=== PATIENT | female | born 1980 | race Caucasian/White ===

== ENCOUNTER 2017-07-31 16:23 | Emergency (ER) | payer OTHER, SELFPAY ==
[2017-07-31 16:25] VITALS: BP 178/108; PULSE 127; PULSE 131; RESP 17; RESP 18; TEMP 37.4; O2SAT 98; BMI 43.2
--- NOTE | 2017-07-31 17:00 | ED.VISSUMM ---
- ER Visit Summary Date of Service: 07/31/17 Chief Complaint: [] URI symptoms History of Present Illness: The patient is a 37 F [] complaining of cough, sore throat, body aches starting earlier today. Patient reports she gave a speech outside in the cold on a day when the ambient temperature was around 35?. She also reports her significant other recently had a URI with similar presentation 2-3 days ago. Denies chest pain, shortness of breath. Denies abdominal pain. Physical Examination: [] Temperature 99.3, heart rate 131, BP 178/108, respiratory rate 20, pulse ox 98% on room air. 37-year-old female no acute distress. HEENT reveals posterior oropharyngeal erythema without exudate. Cardiovascular exam was tachycardic, regular rhythm. Lungs clear to auscultation. Abdomen is soft and nontender. No lower extremity edema. Test Results: [] None. Emergency Department Course and Treatment: [] Patient had a viral presentation and I did not feel that laboratory or diagnostic imaging was warranted. Patient was given intravenous fluids for tachycardia, Phenergan and Toradol for symptom relief. She also received Decadron orally for her sore throat. On serial exam she had improvement of symptoms and was discharged to follow-up with her primary care physician. Provided with a prescription for Tessalon Perles prior to discharge. Treatment Plan: [] Follow-up with PCP. Disposition: [] Discharge, stable. Impression: [] URI Dehydration This note was generated with [employer] dictation software. It may contain incorrect words, spelling, and punctuation that were not noted in review of the chart prior to signing ED Disposition - Plan for ED Patient: Chief Complaint: Cold Sx Referrals: Milly Finn PA [Primary Care Provider] -
[2017-07-31] MEDS: 0.9% Normal Saline 1,000 ML 1000 ML IV (17:39)
[2017-07-31] MEDS: Ketorolac 15 MG/ML Vial IV (17:40)
[2017-07-31] MEDS: proMETHazine 25 MG/ML Syringe 6.25 MG IV (17:40)
--- NOTE | 2017-07-31 18:09 | ED.DEP ---
ED Disposition - Plan for ED Patient: Disposition: Home or Assisted Living Chief Complaint: Cold Sx Instructions: ED Upper Resp Infec No Abx Tx Prescriptions: Benzonatate [Tessalon Perle] 100 mg PO Q4H PRN PRN #20 cap PRN Reason: Cough Referrals: Milly Finn PA [Primary Care Provider] -
== END 2017-07-31 18:32 | disposition home or self-care (01) ==
PROVIDERS: Emergency Provider Emergency Medicine; Family Provider Physician Assistant; PCP Physician Assistant
DX: J06.9 Acute upper respiratory infection, unspecified (principal); E86.0 Dehydration; R00.0 Tachycardia, unspecified; E66.9 Obesity, unspecified; Z68.41 Body mass index [BMI] 40.0-44.9, adult; G43.909 Migraine, unspecified, not intractable, without status migrainosus
CPT/HCPCS: 96361; 96374; 96375; 99284; J7030; A4216

== ENCOUNTER 2017-08-03 00:49 | Emergency (ER) | payer OTHER, SELFPAY ==
[2017-08-03 00:50] VITALS: BP 178/125; PULSE 93; RESP 18; TEMP 36.8; O2SAT 97; BMI 43.4
--- NOTE | 2017-08-03 01:35 | ED.DCSUM_ITS ---
- ER Visit Summary Date of Service: 08/03/17 Chief Complaint: Cold symptoms History of Present Illness: The patient is a 37 F with cold symptoms for several days. Seen previously and diagnosed with viral bronchitis. Not improving with Tessalon. She is having face, teeth, sinus pressure. Very severe symptoms. Low-grade fever. Physical Examination: Blood pressure 178/125. Afebrile. Otherwise vitals normal. Nontoxic and in no acute distress. HEENT exam unremarkable. No lymphadenopathy. Neck unremarkable. Heart regular. Lungs clear. Skin appears normal. Test Results: None indicated Emergency Department Course and Treatment: Given the severity of her symptoms, we will treat. Prescription for Augmentin and Afrin for 5 days. At the time of this dictation, I will recheck her blood pressure. Patient will be advised to follow-up with her PCP for reevaluation and blood pressure checks. Treatment Plan: As above Disposition: Discharge Impression: 1. Acute sinusitis This note was generated with [employer] dictation software. It may contain incorrect words, spelling, and punctuation that were not noted in review of the chart prior to signing ED Disposition - Plan for ED Patient: Chief Complaint: Cold Sx Referrals: Milly Finn PA [Primary Care Provider] -
--- NOTE | 2017-08-03 01:35 | ED.DEP ---
ED Disposition - Plan for ED Patient: Chief Complaint: Cold Sx Instructions: ED Sinusitis Abx Tx Prescriptions: Amox/Clavulanate Tablet [Augmentin Tablet] 875 mg PO Q12H #20 tab Referrals: Milly Finn PA [Primary Care Provider] -
[2017-08-03] MEDS: Amox/Clavulanate 875 MG Tablet PO (01:40)
[2017-08-03] MEDS: Oxymetazoline 0.05% 1 SPRAY SPRAY.BTL 2 SPRAY NASAL (01:40)
[2017-08-03 01:41] VITALS: BP 151/90; PULSE 93; RESP 18; O2SAT 97
== END 2017-08-03 01:43 | disposition home or self-care (01) ==
PROVIDERS: Emergency Provider Emergency Medicine; Family Provider Physician Assistant; PCP Physician Assistant
DX: J01.90 Acute sinusitis, unspecified (principal); I10 Essential (primary) hypertension
CPT/HCPCS: 99283

== ENCOUNTER → 2017-09-24 15:35 | Outpatient (CLI) | payer OTHER, SELFPAY | PROVIDERS: Family Provider Physician Assistant; PCP Physician Assistant; Visit Provider Otolaryngology | DX: T78.40XA Allergy, unspecified, initial encounter (principal) | CPT/HCPCS: 36415; 86003 ==

== ENCOUNTER 2017-10-04 19:51 | Emergency (ER) | payer OTHER, SELFPAY ==
[2017-10-04 19:51] VITALS: BP 165/107; PULSE 98; RESP 18; TEMP 36.7; O2SAT 98; BMI 43.9
--- NOTE | 2017-10-04 21:08 | ED.VISSUMM ---
- ER Visit Summary Date of Service: 10/04/17 Chief Complaint: Itching History of Present Illness: The patient is a 37 F presenting with itching all over. Patient states this started 3 weeks ago. She has tried Benadryl, Marilyn, cortisone cream, Zyrtec. She does not know what is causing her symptoms. She denies any new medications, foods, pets, detergents. She states she underwent allergy testing last week and is awaiting these results. Denies other complaints. Physical Examination: Vitals are stable. Patient is afebrile. Alert no acute distress. HEENT exam is unremarkable. Neck is supple. Lungs are clear and equal bilaterally. Heart is regular rate and rhythm. Abdomen is soft nontender nondistended. Extremities are unremarkable. Skin is warm and dry. Excoriated from scratching, mild maculopapular rash of trunk No focal neurologic deficit. Remainder of exam is unremarkable. Emergency Department Course and Treatment: LFTs are normal. Patient is given for prescription for prednisone. She is advised to follow-up with her PCP and her allergy testing. Advised return to ED for worsening complaints. Disposition: Discharge home Impression: Pruritus This note was generated with [employer] dictation software. It may contain incorrect words, spelling, and punctuation that were not noted in review of the chart prior to signing ED Disposition - Plan for ED Patient: Chief Complaint: Itching Instructions: ED Allergic Reaction General Other Prescriptions: Prednisone [Deltasone] 40 mg PO DAILY #10 tablet Referrals: Milly Finn PA [Primary Care Provider] -
[2017-10-04 21:55] LABS: AST(SGOT) 15 U/L (15-37); Alanine Aminotransfer ALT/SGPT 27 U/L (13-56); Albumin, Serum 3.5 g/dL (3.2-5.0); Alkaline Phosphatase 90 U/L (45-117); Globulin 3.8 g/dL (2.2-4.2); Protein, Total 7.3 g/dL (6.4-8.2)
--- NOTE | 2017-10-04 22:20 | ED.DEP ---
ED Disposition - Plan for ED Patient: Chief Complaint: Itching Instructions: ED Allergic Reaction General Other Prescriptions: Prednisone [Deltasone] 40 mg PO DAILY #10 tablet Referrals: Milly Finn PA [Primary Care Provider] -
[2017-10-04 22:35] VITALS: RESP 16
== END 2017-10-04 22:35 | disposition home or self-care (01) ==
LOC: ED 20:56
PROVIDERS: Emergency Provider Emergency Medicine; Family Provider Physician Assistant; PCP Physician Assistant
DX: L29.9 Pruritus, unspecified (principal)
CPT/HCPCS: 80076; 99282

== ENCOUNTER → 2017-10-24 16:17 | Outpatient (CLI) | payer OTHER, SELFPAY ==
[2017-10-29 03:07] LABS: Clam <0.10 kU/L (Class 0); Codfish <0.10 kU/L (Class 0); Corn <0.10 kU/L (Class 0); Egg, White <0.10 kU/L (Class 0); Milk (Cow) <0.10 kU/L (Class 0); Peanut <0.10 kU/L (Class 0); SCALLOP <0.10 kU/L (Class 0); Shrimp <0.10 kU/L (Class 0); Soybean <0.10 kU/L (Class 0); Walnut, (Food) <0.10 kU/L (Class 0); Wheat <0.10 kU/L (Class 0)
[2017-10-31 10:32] LABS: SESAME SEED <0.10 kU/L (Class 0)
== END ==
LOC: LAB.FUTURE 16:18
PROVIDERS: Family Provider Physician Assistant; PCP Physician Assistant; Visit Provider Otolaryngology
DX: T78.40XA Allergy, unspecified, initial encounter (principal)
CPT/HCPCS: 36415; 86003

== ENCOUNTER 2018-04-27 18:17 | Emergency (ER) | payer OTHER, SELFPAY ==
[2018-04-27 18:18] VITALS: BP 215/120; PULSE 85; RESP 16; TEMP 36.4; O2SAT 95; BMI 43.9
--- NOTE | 2018-04-27 18:44 | CT_ITS ---
STUDY: CT ABDOMEN AND PELVIS WITHOUT CONTRAST REASON FOR EXAM: Female, 37 years old. Right lower quadrant pain RADIATION DOSAGE (If Supplied By Facility): CTDIvol = ( 22.13 ) mGy, DLP = ( 1138.78 ) mGycm TECHNIQUE: Transaxial images were obtained from the dome of the diaphragm to the symphysis pubis without oral contrast, and without intravenous contrast. Sagittal and coronal images were reconstructed. Individualized dose optimization techniques were used for this CT. COMPARISON: 01/20/2017. FINDINGS: The visualized lung bases are unremarkable. The visualized portions of the heart are within normal limits. There is decreased attenuation of the liver consistent with steatosis. Normal gallbladder and extrahepatic biliary system. Normal spleen. Normal pancreas. Normal bilateral adrenal glands. Normal right kidney. Left kidney has a 3 mm nonobstructing stone in the lower pole. The kidneys are otherwise normal. Evaluation of the GI tract is limited by absence of oral contrast. Cannot exclude stomach wall thickening. No dilated loops of bowel or evidence for obstruction. Cannot exclude segmental thickening of the umana of the small or large bowel. Cannot exclude enteritis or colitis. Moderate diffuse fecal retention. Appendix within normal limits. Normal abdominal aorta. Normal inferior vena cava. Normal retroperitoneum. Normal urinary bladder. Normal visualized uterus. There is a small umbilical hernia containing fat. Normal osseous structures. CT/Abdomen/Pelvis without Cont IMPRESSION: There is no definite acute abnormality seen. Electronically Signed: Yuriy Rodriguez MD at 20:09 EST , Service support ,
[2018-04-27] MEDS: 0.9% Normal Saline 1,000 ML 150 ML IV (19:01)
[2018-04-27 19:05] LABS: Bacteria 0 SEEN /hpf (None Seen); Red Blood Cells-Urine 0 SEEN /hpf (0-5)
[2018-04-27 19:19] LABS: Absolute Lymphocyte Count 2.96 X10^3/ul (0.83-4.51); Absolute Neutrophil Count 6.1 X10^3/uL (2.0-7.7); Basophil# 0.02 X10^3/uL; Basophil% 0.2 % (0-1); Eosinophil# 0.12 X10^3/uL; Eosinophils% 1.2 % (0-5); Hematocrit 36.8 % (37-47); Hemoglobin 12.1 g/dl (12.0-15.0); Lymphocyte # 2.96 X10^3/ul (4.0); Lymphocyte % 30.5 % (19-41); Mean Corp Hgb Conc 32.9 g/gl (32-36); Mean Corpuscular Hgb 29.5 pg (27.0-32.0); Mean Corpuscular Volume 89.8 fL (81-99); Mean Platelet Vol. 9.3 fl (6.2-12.0); Monocyte# 0.49 X10^3/uL; Neutrophil % 62.9 % (47-70); Platelet Count 280 K/mm3 (150-450); RBC Distribution Width CV 13.1 % (11.6-14.6); RBC Distribution Width SD 42.4 fl (35.1-43.9); White Blood Count 9.7 K/mm3 (4.4-11.0)
[2018-04-27 19:23] LABS: Anion Gap 9 (5-15); BUN 17 mg/dL (7-18); BUN/Creat Ratio 23.6 RATIO (10-20); Calcium,Total 8.7 mg/dL (8.5-10.1); Chloride 107 mmol/L (98-107); Creatinine, Serum 0.72 mg/dL (0.55-1.02); EST Glomerular Filtration Rate 97 mL/min (>60); Est Glom Filt Rate - Afr Amer 117 mL/min (>60); Estimated Creatinine Clearance 96.26 ml/min; Glucose 91 mg/dL (74-106); POSITIVE COUNT NO; POSITIVE DIFFERENTIAL NO; POSITIVE MORPHOLOGY NO; Potassium 3.3 mmol/L (3.5-5.1); Sodium Level 143 mmol/L (136-145)
[2018-04-27 19:23] LABS: Color, Urine Yellow (Yellow); Glucose, Dipstick Normal (Normal); Ketone-Dipstick Negative (Negative); Leukocyte Esterase-Dipstick 100 /ul (Negative); Nitrite-Dipstick Negative (Negative); Occult Blood-Urine Negative /ul (Negative); Protein-Dipstick Negative (Negative); Urine Bilirubin Dipstick Negative (Negative); Urine Clarity Sl. Cloudy (Clear); Urine Urobilinogen Normal (Normal)
[2018-04-27 19:37] LABS: Mucous, Urine 1+ /hpf (<or=2+)
[2018-04-27 19:38] LABS: Squamous Epithelial Cells - UA 0-5 SEEN /hpf (5-10); White Blood Cells 5-10 SEEN /hpf (0-5)
[2018-04-27 19:47] LABS: Pregnancy, Serum, hCG Quali. NEGATIVE Negative (0-9 Nonpreg)
[2018-04-27 20:04] VITALS: BP 162/111; PULSE 88; RESP 16; O2SAT 98
--- NOTE | 2018-04-27 20:34 | ED.DCSUM_ITS ---
- ER Visit Summary Date of Service: 04/27/18 Chief Complaint: [Abdominal pain] History of Present Illness: The patient is a 37 F [presents the emergency department complaint of abdominal pain that started around 11:30 AM today. Patient describes it as right-sided and can woke her up from sleep. Patient st ates pain is been continuous and rates it a 7 out of 10 currently. Patient states her last menstrual period was 1 week ago. She denies any dysuria. Patient does complain of some pain with flatulence. Patient denies any fevers at home. She has not had pain like this before. Patient has had somewhat decreased appetite and want to eat too much today but she did eat a sandwich around 1 PM. Patient did have one episode of diarrhea today but denies any blood in her stool. Patient states that she has had her left fallopian tube removed and the right one has been clamped therefore she does not believe she is .] Physical Examination: [HEENT-PERRLA, EOMI. Cranial nerves II through XII grossly intact. TMs clear. Mucous membranes moist. No adenopathy. Cardiovascular-regular rate and rhythm without murmur or ectopy Lungs-clear to auscultation, chest wall stable without crepitus or subcu emphysema Abdomen-normoactive bowel sounds, soft. Patient has some mild tenderness to the right lower quadrant with some guarding. There is no rebound, rigidity, or peritoneal signs. Extremities-intact ?4, normal range of motion, normal pulses, atraumatic] Test Results: [CBC with differential obtained showed a normal white count of 9.7, hemoglobin 12, hematocrit 37, platelets 280. Chemistries unremarkable other than a slightly depressed potassium at 3.3. Urinalysis was obtained and showed 100 leukocyte esterase, 5-10 WBCs, 0 RBCs, 0 bacteria. HCG was negative. CT flank showed a normal appendix otherwise nothing acute.] Emergency Department Course and Treatment: [Patient refused any pain medication in the department. Patient was given 40 mEq potassium chloride p.o.] Treatment Plan: [She will be given a prescription for [place] for pain and advised to follow-up with primary care physician within next 3-5 days. Patient advised to return if worsening pain, fever, vomiting, or condition should worsen anyway.] Disposition: [Discharged home in stable condition] Impression: [Abdominal pain-etiology uncertain] This note was generated with Dragon dictation software. It may contain incorrect words, spelling, and punctuation that were not noted in review of the chart prior to signing ED Disposition - Plan for ED Patient: Chief Complaint: Abd Pain Referrals: Milly Finn PA [Primary Care Provider] -
--- NOTE | 2018-04-27 20:35 | ED.DEP ---
ED Disposition - Plan for ED Patient: Chief Complaint: Abd Pain Instructions: ED Abdominal Pain Unkn Cause Prescriptions: Hydrocodone Bitart/Apap 5-325 [[place] 5MG-325MG] 1 tab PO Q4H PRN PRN 2 Days #10 tab PRN Reason: Pain Ondansetron [Zofran Odt] 4 mg PO Q8H PRN PRN #10 tab PRN Reason: Nausea Referrals: Milly Finn PA [Primary Care Provider] - 3-5 Days
[2018-04-27 20:50] VITALS: BP 180/108; PULSE 83
[2018-04-27 21:03] VITALS: BP 164/91
== END 2018-04-27 21:04 | disposition home or self-care (01) ==
PROVIDERS: Emergency Provider Emergency Medicine; Family Provider Physician Assistant; PCP Physician Assistant
DX: R10.31 Right lower quadrant pain (principal)
CPT/HCPCS: 74176; 80048; 81001; 84703; 85025; 87086; 87088; 96360; 96361; 99284; J7030; A4216

== ENCOUNTER 2018-09-03 19:26 | Emergency (ER) | payer OTHER, SELFPAY ==
[2018-09-03 19:27] VITALS: BP 171/113; PULSE 87; RESP 16; TEMP 36.6; O2SAT 96; BMI 43.5
--- NOTE | 2018-09-03 19:41 | EKG12_ITS ---
Test Reason : COUGH Blood Pressure : / mmHG Vent. Rate : 086 BPM Atrial Rate : 086 BPM P-R Int : 150 ms QRS Dur : 096 ms QT Int : 370 ms P-R-T Axes : 063 014 033 degrees QTc Int : 442 ms Normal sinus rhythm Normal ECG Confirmed by FREDDY GÓMEZ, BECKY ([id number]), map editor GHISLAINE WYNNE ([id number]) on 09/06/2018 1:39:56 PM Referred By: ANISA Confirmed By:BECKY HAYES MD
[2018-09-03] MEDS: Albuterol 2.5 MG/3 ML VIAL.NEB. INHALATION (19:50)
[2018-09-03 19:55] VITALS: PULSE 85; RESP 18; O2SAT 98
[2018-09-03 19:58] LABS: Hematocrit 34.5 % (37-47); Hemoglobin 11.6 g/dl (12.0-15.0); Mean Corp Hgb Conc 33.6 g/gl (32-36); Mean Corpuscular Hgb 29.9 pg (27.0-32.0); Mean Corpuscular Volume 88.9 fL (81-99); Platelet Count 268 K/mm3 (150-450); RBC Distribution Width CV 13.3 % (11.6-14.6); Red Blood Count 3.88 M/mm3 (4.2-5.4); White Blood Count 9.2 K/mm3 (4.4-11.0)
[2018-09-03 19:59] LABS: Absolute Neutrophil Count 5.6 X10^3/uL (2.0-7.7); Basophil# 0.03 X10^3/uL; Basophil% 0.3 % (0-1); Eosinophil# 0.31 X10^3/uL; Eosinophils% 3.4 % (0-5); Lymphocyte % 29.3 % (19-41); Mean Platelet Vol. 8.9 fl (6.2-12.0); Monocyte% 6.5 % (0-10); Neutrophil # 5.55 X10^3/uL (2.7-7.7); Neutrophil % 60.3 % (47-70); POSITIVE COUNT NO; POSITIVE DIFFERENTIAL NO; POSITIVE MORPHOLOGY NO
--- NOTE | 2018-09-03 20:00 | RAD_ITS ---
STUDY: X-RAY CHEST REASON FOR EXAM: Female, 38 years old. Cold for 2 weeks TECHNIQUE: PA and lateral views of the chest. COMPARISON: None. FINDINGS: groundwater monitoring technician leads are present. The lungs are clear and expanded. There is no demonstrated pleural abnormality. Normal size heart. Normal mediastinum and garfield. Normal visualized pulmonary arteries. Normal visualized aortic arch and descending thoracic aorta. Normal visualized thoracic spine. Normal visualized ribs, clavicles, and shoulders. There is no demonstrated abnormality of the visualized soft tissue structures of the upper abdomen. RAD/Chest PA and Lateral IMPRESSION: Normal x-ray examination of the chest. Electronically Signed: Macho Pichardo MD at 20:17 EDT , Service support ,
[2018-09-03 20:16] LABS: Anion Gap 5 (5-15); BUN 17 mg/dL (7-18); BUN/Creat Ratio 19.8 RATIO (10-20); Calcium,Total 8.5 mg/dL (8.5-10.1); Chloride 109 mmol/L (98-107); Creatinine, Serum 0.86 mg/dL (0.55-1.02); EST Glomerular Filtration Rate 79 mL/min (>60); Est Glom Filt Rate - Afr Amer 95 mL/min (>60); Estimated Creatinine Clearance 79.81 ml/min; Glucose 111 mg/dL (74-106); Potassium 3.5 mmol/L (3.5-5.1); Sodium Level 142 mmol/L (136-145)
[2018-09-03 20:23] LABS: BNP,B-Type NATRIURETIC PEPTIDE 8.8 pg/mL (0-100)
[2018-09-03 20:24] LABS: D-Dimer Quantitative (DVT/PE) 0.47 FEU/ug/m (0.27-0.49)
--- NOTE | 2018-09-03 22:06 | DCINST.ED_ITS ---
ED Disposition - Plan for ED Patient: Instructions: ED Upper Resp Infec No Abx Tx Prescriptions: Benzonatate [Tessalon Perle] 200 mg PO TID PRN PRN #20 capsule PRN Reason: Cough Referrals: Milly Finn PA [Primary Care Provider] -
--- NOTE | 2018-09-03 22:08 | ED.VISSUMM ---
- ER Visit Summary Date of Service: 09/03/18 Chief Complaint: Cough History of Present Illness: The patient is a 38 F presenting with cough x2 weeks. Patient has had a productive cough. She complains of shortness of breath associated with this. She has shortness of breath when she starts to cough or lays flat. She states several days ago she experienced chest pain. She went several days without chest pain and then today had left-sided chest pain associated with the cough. She has tried Mucinex and Cepacol at home. She recently traveled to [facility] and [facility]. No other PE/DVT risk factors. Physical Examination: Vitals are stable. Patient is afebrile. Alert no acute distress. 96% on room air HEENT exam is unremarkable. Neck is supple. Lungs are clear and equal bilaterally. Heart is regular rate and rhythm. Abdomen is soft nontender nondistended. Extremities are unremarkable. Skin is warm and dry. No focal neurologic deficit. Remainder of exam is unremarkable. Emergency Department Course and Treatment: Chest x-ray shows no acute process. EKG is sinus rate 86 with no acute changes. CBC, chemistries unremarkable. Troponin is negative. BNP normal. D-dimer negative. Patient was given albuterol with some improvement. She is given albuterol MDI for home as well as Tessalon Perles. Delta troponin will be followed by nighttime physician. As long as delta troponin is negative she will be discharged to follow-up with her primary care physician and advised to return to the ED for worsening complaints. Disposition: Pending Impression: Bronchitis, atypical chest pain This note was generated with [employer] dictation software. It may contain incorrect words, spelling, and punctuation that were not noted in review of the chart prior to signing ED Disposition - Plan for ED Patient: Instructions: ED Upper Resp Infec No Abx Tx Prescriptions: Benzonatate [Tessalon Perle] 200 mg PO TID PRN PRN #20 capsule PRN Reason: Cough Referrals: Milly Finn PA [Primary Care Provider] -
--- NOTE | 2018-09-03 22:11 | ED.DCSUM_ITS ---
- ER Visit Summary Date of Service: 09/03/18 Chief Complaint: Cough History of Present Illness: The patient is a 38 F presenting with cough x2 weeks. Patient has had a productive cough. She complains of shortness of breath associated with this. She has shortness of breath when she starts to cough or lays flat. She states several days ago she experienced chest pain. She went several days without chest pain and then today had left-sided chest pain associated with the cough. She has tried Mucinex and Cepacol at home. She recently traveled to [place] and [facility]. No other PE/DVT risk factors. Physical Examination: Vitals are stable. Patient is afebrile. Alert no acute distress. 96% on room air HEENT exam is unremarkable. Neck is supple. Lungs are clear and equal bilaterally. Heart is regular rate and rhythm. Abdomen is soft nontender nondistended. Extremities are unremarkable. Skin is warm and dry. No focal neurologic deficit. Remainder of exam is unremarkable. Emergency Department Course and Treatment: Chest x-ray shows no acute process. EKG is sinus rate 86 with no acute changes. CBC, chemistries unremarkable. Troponin is negative. BNP normal. D-dimer negative. Patient was given albuterol with some improvement. She is given albuterol MDI for home as well as Tessalon Perles. Delta troponin will be followed by nighttime physician. As long as delta troponin is negative she will be discharged to follow-up with her primary care physician and advised to return to the ED for worsening complaints. Disposition: Pending Impression: Bronchitis, atypical chest pain This note was generated with [employer] dictation software. It may contain incorrect words, spelling, and punctuation that were not noted in review of the chart prior to signing ED Disposition - Plan for ED Patient: Instructions: ED Upper Resp Infec No Abx Tx Prescriptions: Benzonatate [Tessalon Perle] 200 mg PO TID PRN PRN #20 capsule PRN Reason: Cough Referrals: Milly Finn PA [Primary Care Provider] -
[2018-09-03 22:54] VITALS: PULSE 105; RESP 18
[2018-09-03 23:27] VITALS: PULSE 90; RESP 18; O2SAT 98
== END 2018-09-03 23:28 | disposition home or self-care (01) ==
PROVIDERS: Emergency Provider Emergency Medicine; Family Provider Physician Assistant; PCP Physician Assistant
DX: J40 Bronchitis, not specified as acute or chronic (principal); R07.89 Other chest pain
CPT/HCPCS: 71046; 80048; 83880; 84484; 85025; 85379; 93005; 94640; 99284; A4216

== ENCOUNTER 2018-12-06 17:35 | Emergency (ER) | payer OTHER, SELFPAY ==
[2018-12-06 17:37] VITALS: BP 197/112; PULSE 89; RESP 15; TEMP 36.2; O2SAT 100; BMI 43.4
--- NOTE | 2018-12-06 17:58 | CT_ITS ---
STUDY: CT ABDOMEN AND PELVIS WITH CONTRAST REASON FOR EXAM: Female, 38 years old. Right lower quadrant pain. RADIATION DOSAGE (If Supplied By Facility): CTDIvol = ( 15.37 ) mGy, DLP = ( 1281.61 ) mGycm TECHNIQUE: Transaxial images were obtained from the dome of the diaphragm to the symphysis pubis without oral contrast. 100ML IV/Oral Isovue 300 was administered. Sagittal and coronal images were reconstructed. Individualized dose optimization techniques were used for this CT. COMPARISON: CT of the abdomen and pelvis, April 27, 2018. FINDINGS: The visualized lung bases are unremarkable. The visualized portions of the heart are within normal limits. Stable hepatic steatosis. Normal gallbladder and extrahepatic biliary system. Normal spleen. Normal pancreas. Normal bilateral adrenal glands. Normal right kidney. Normal right ureter. There is a 2 mm nonobstructing calculus lower pole calyx of an otherwise normal left kidney. Normal left ureter. Normal visualized stomach. Normal small intestine. Normal colon. The appendix is visualized and appears normal. Normal abdominal aorta. Normal inferior vena cava. Normal retroperitoneum. Normal urinary bladder. Normal uterus and ovaries. There are 2 surgical clips near the left adnexa suggesting tubal ligation clips. No pelvic lymphadenopathy. No free air or free fluid is seen within the peritoneal cavity. Normal abdominal wall. Normal osseous structures. CT/Abdomen/Pelvis WITH Contrast IMPRESSION: 1. Normal appendix. 2. No evidence of acute intra-abdominal or pelvic abnormality. 3. Nonobstructing left renal calculus, unchanged from the previous exam. Electronically Signed: Christiano Ray DO at 20:01 EDT Tel [phone], Service support ,
--- NOTE | 2018-12-06 17:58 | US_ITS ---
STUDY: ULTRASOUND OF THE FEMALE PELVIS - COMPLETE REASON FOR EXAM: Female, 38 years old. Left lower quadrant pain and severe today. Irregular bleeding. History of ectopic . LMP: November 18, 2018. TECHNIQUE: Transvaginal TECHNICAL QUALITY: Adequate. COMPARISON: None. FINDINGS: The uterus is anteverted and is in a midline position. The uterus measures 8.0 x 5.5 x 3.9 cm cm. Normal uterine cervix. The endometrium measures 7 mm in thickness, and is hyperechoic. There is no demonstrated endometrial mass. There is a 0.9 x 1.0 x 0.6 cm hypoechoic fibroid in the myometrium of the posterior upper uterine body. I.U.D. - The patient does not have an I.U.D. The right ovary is visualized. The right ovary measures 2.4 x 2.1 x 1.4 cm. There are multiple follicles of the right ovary with a 1.5 x 1.5 x 1.2 cm dominant follicle. There is no visualized right adnexal mass or complex lesion. There is normal arterial and normal venous vascularity. The left ovary is visualized. The left ovary measures 2.2 x 1.5 x 1.3 cm. There are multiple follicles of the left ovary with a 1.0 x 1.0 x 0.8 cm dominant follicle. There is no visualized left adnexal mass or complex lesion. There is normal arterial and normal venous vascularity. There is no fluid in the cul-de-sac. Polycystic ovary disease: No. US/Transvaginal Non- IMPRESSION: Normal female pelvis. Electronically Signed: Christiano Ray DO at 19:53 EDT Tel [phone], Service support ,
--- NOTE | 2018-12-06 18:00 | ED.DCSUM_ITS ---
- ER Visit Summary Date of Service: 12/06/18 Chief Complaint: Abdominal pain History of Present Illness: The patient is a 38 F presenting with right lower quadrant abdominal pain which started today. She states last week she was having heavy vaginal bleeding. She went to her CHART SNATCHER and was put on a medica tion to stop the bleeding. She is unsure what medication this was. She states the bleeding has now stopped. Today she developed pain in her right lower quadrant. History of previous ectopic . She called her CHART SNATCHER and was advised to come to the ED for further evaluation. She denies nausea, vomiting, diarrhea, constipation. Denies urinary complaints. Denies fever. Physical Examination: Vitals are stable. Patient is afebrile. Alert no acute distress. HEENT exam is unremarkable. Neck is supple. Lungs are clear and equal bilaterally. Heart is regular rate and rhythm. Abdomen is soft right lower quadrant tenderness with no rebound or guarding Extremities are unremarkable. Skin is warm and dry. Remainder of exam is unremarkable. Emergency Department Course and Treatment: Patient was given IV fluids, morphine, Zofran. Pelvic ultrasound shows normal female pelvis. CBC, chemistries unremarkable. Lipase is normal. Urinalysis is contaminated. hCG negative. CT abdomen pelvis shows Normal appendix. No evidence of acute intra-abdominal or pelvic abnormality. Nonobstructing left renal calculus, unchanged from the previous exam. On reevaluation, patient is resting comfortably. She will follow-up with her primary care physician and CH[employer] SN[employer]ER. She is advised to return to the ED for worsening complaints. Disposition: Discharge home Impression: Abdominal pain This note was generated with [employer] dictation software. It may contain incorrect words, spelling, and punctuation that were not noted in review of the chart prior to signing ED Disposition - Plan for ED Patient: Instructions: ABDOMINAL PAIN, Unknown Cause, (Female) Referrals: Milly Finn PA [Primary Care Provider] -
[2018-12-06 18:08] LABS: Absolute Lymphocyte Count 3.09 X10^3/uL (0.83-4.51); Absolute Neutrophil Count 5.1 X10^3/uL (2.0-7.7); Basophil# 0.03 X10^3/uL; Basophil% 0.3 % (0-1); Eosinophil# 0.11 X10^3/uL; Eosinophils% 1.2 % (0-5); Hematocrit 35.6 % (37-47); Hemoglobin 12.2 g/dL (12.0-15.0); Lymphocyte # 3.09 X10^3/ul (4.0); Mean Corp Hgb Conc 34.3 g/dL (32-36); Mean Corpuscular Hgb 30.9 pg (27.0-32.0); Mean Corpuscular Volume 90.1 fL (81-99); Mean Platelet Vol. 9.8 fl (6.2-12.0); Monocyte# 0.49 X10^3/uL; Monocyte% 5.5 % (0-10); NRBC Flagged by Analyzer 0 % (0-5); Neutrophil # 5.09 X10^3/uL (2.7-7.7); Neutrophil % 57.7 % (47-70); Platelet Count 299 K/mm3 (150-450); RBC Distribution Width CV 12.6 % (11.6-14.6); RBC Distribution Width SD 41.5 fl (35.1-43.9); Red Blood Count 3.95 M/mm3 (4.2-5.4); White Blood Count 8.8 K/mm3 (4.4-11.0)
[2018-12-06] MEDS: Morphine 4 MG/ML Syringe IV (18:09)
[2018-12-06] MEDS: 0.9% Normal Saline 1,000 ML 1000 ML IV (18:10)
[2018-12-06] MEDS: Ondansetron 4 MG/2 ML Vial IV (18:10)
[2018-12-06 18:18] LABS: ALB/GLOB Ratio 0.9 RATIO (0.9-2.4); AST(SGOT) 15 U/L (15-37); Alanine Aminotransfer ALT/SGPT 27 U/L (13-56); Albumin, Serum 3.5 g/dL (3.2-5.0); Alkaline Phosphatase 94 U/L (45-117); Anion Gap 9 (5-15); BUN 19 mg/dL (7-18); BUN/Creat Ratio 24.8 RATIO (10-20); Calcium,Total 8.6 mg/dL (8.5-10.1); Chloride 107 mmol/L (98-107); Creatinine, Serum 0.76 mg/dL (0.55-1.02); EST Glomerular Filtration Rate 90 mL/min (>60); Est Glom Filt Rate - Afr Amer 108 mL/min (>60); Estimated Creatinine Clearance 90.31 ml/min; Globulin 4.1 g/dL (2.2-4.2); Glucose 86 mg/dL (74-106); Lipase 57 U/L (73-393); Potassium 3.8 mmol/L (3.5-5.1); Protein, Total 7.6 g/dL (6.4-8.2); Sodium Level 142 mmol/L (136-145)
[2018-12-06 18:31] LABS: Color, Urine Yellow (Yellow); Glucose, Dipstick Normal (Normal); Ketone-Dipstick 5 mg/dl (Negative); Leukocyte Esterase-Dipstick 500 /ul (Negative); Nitrite-Dipstick Negative (Negative); Occult Blood-Urine 250 /ul (Negative); Protein-Dipstick 15 mg/dl (Negative); Urine Bilirubin Dipstick Negative (Negative); Urine Clarity Sl. Cloudy (Clear); Urine Urobilinogen Normal (Normal)
[2018-12-06 18:33] LABS: Internal QC Validated? YES +Cl - CLEAR BKGD; Pregnancy, Serum, hCG Quali. NEGATIVE Negative
[2018-12-06 18:39] LABS: Bacteria 1+ /hpf (None Seen); Red Blood Cells-Urine 10-25 SEEN /hpf (0-5); Squamous Epithelial Cells - UA 10-25 SEEN /hpf (5-10); White Blood Cells 5-10 SEEN /hpf (0-5)
[2018-12-06 18:40] LABS: Mucous, Urine 1+ /hpf (<or=2+)
[2018-12-06 19:04] VITALS: BP 166/101; PULSE 78; RESP 18; TEMP 36.5; O2SAT 96
[2018-12-06 20:21] VITALS: BP 145/96; PULSE 88; RESP 16; TEMP 36.6; O2SAT 96
--- NOTE | 2018-12-06 20:29 | ED.DEP ---
ED Disposition - Plan for ED Patient: Instructions: ABDOMINAL PAIN, Unknown Cause, (Female) Referrals: Milly Finn PA [Primary Care Provider] -
[2018-12-06 20:40] VITALS: BP 141/90; PULSE 80; RESP 16; O2SAT 96
== END 2018-12-06 20:42 | disposition home or self-care (01) ==
PROVIDERS: Emergency Provider Emergency Medicine; Family Provider Physician Assistant; PCP Physician Assistant
DX: R10.31 Right lower quadrant pain (principal)
CPT/HCPCS: 74177; 76830; 80053; 81001; 83690; 84703; 85025; 93976; 96361; 96374; 96375; 99283; J7030; Q9967; A4216; J2405

== ENCOUNTER 2019-10-28 20:49 | Observation (INO) | payer MEDICAID, SELFPAY ==
[2019-10-24 10:03] VITALS: BMI 43.4
[2019-10-28] VITALS (9 sets, daily range): BP systolic 121–218; BP diastolic 80–108; PULSE 82–92; RESP 16–17; TEMP 37.2–37.5; O2SAT 97–99; BMI 46.4; BMI 45.5
--- NOTE | 2019-10-28 21:00 | EKG12_ITS ---
Test Reason : ADMISSION EKG Blood Pressure : / mmHG Vent. Rate : 084 BPM Atrial Rate : 084 BPM P-R Int : 148 ms QRS Dur : 096 ms QT Int : 372 ms P-R-T Axes : 040 016 041 degrees QTc Int : 439 ms Normal sinus rhythm Normal ECG Confirmed by FREDDY GÓMEZ, BECKY ([id number]), editor in chief newspaper ORLANDO BHATIA ([id number]) on 10/31/2019 10:32:46 AM Referred By: DR VIEYRA Confirmed By:BECKY HAYES MD
[2019-10-28 21:07] LABS: Absolute Lymphocyte Count 3.11 X10^3/uL (0.83-4.51); Absolute Neutrophil Count 6.2 X10^3/uL (2.0-7.7); Basophil# 0.03 X10^3/uL; Basophil% 0.3 % (0-1); Eosinophil# 0.13 X10^3/uL; Eosinophils% 1.3 % (0-5); Hematocrit 37.4 % (37-47); Hemoglobin 12.1 g/dL (12.0-15.0); Lymphocyte # 3.11 X10^3/ul (4.0); Lymphocyte % 30.7 % (19-41); Mean Corp Hgb Conc 32.4 g/dL (32-36); Mean Corpuscular Volume 92.6 fL (81-99); Mean Platelet Vol. 9.6 fl (6.2-12.0); Monocyte# 0.62 X10^3/uL; Monocyte% 6.1 % (0-10); NRBC Flagged by Analyzer 0 % (0-5); Neutrophil # 6.18 X10^3/uL (2.7-7.7); Neutrophil % 61.1 % (47-70); Platelet Count 300 K/mm3 (150-450); RBC Distribution Width CV 12.7 % (11.6-14.6); RBC Distribution Width SD 42.8 fl (35.1-43.9); Red Blood Count 4.04 M/mm3 (4.2-5.4); White Blood Count 10.1 K/mm3 (4.4-11.0)
[2019-10-28] MEDS: Aspirin 81 MG TAB.CHEW 324 MG PO (21:10)
[2019-10-28] MEDS: Nitroglycerin SL (ED/IMG/CATH) 0.4 MG TABLET SUBLINGUAL ×2 (21:10→21:21)
--- NOTE | 2019-10-28 21:13 | ED.VIS.GEN ---
History of Present Illness Chief Complaint: Chest Pain Onset: Today Narrative: 39-year-old female presents with concern for chest pain. States that she was relaxing in bed with her when all of a sudden she had sudden onset of retrosternal aching chest pain. States that she also felt very flushed and felt that she may be having allergic reaction. Denies any shortness of breath, nausea, vomiting, diaphoresis. States that she checked her blood pressure and it was over 200. States that she had a work physical last week and they were concerned and would not let her leave because her blood pressure was so high. Has no past medical history of hypertension or takes any medication for this issue. She denies any smoking or illicit drug abuse. Past Medical History - Allergies and Home Meds Allergies/Adverse Reactions: Allergies ciprofloxacin [From Cipro] Allergy (Verified 10/28/19 20:59) Hives ciprofloxacin HCl [From Cipro] Allergy (Verified 10/28/19 20:59) Hives Primary Care Physician: Milly Finn PA [Primary Care Provider] - Past Medical History: None Surgical History: no surgical history Lives: Spouse/ Significant Other Smoking Status: Never smoker Alcohol: None Drugs: None Review of Systems General: Reports: - - flushed. Denies: Chills, Fever, Sweats Eyes: Denies: Visual changes - bilaterally, Diplopia ENT: Denies: Rhinorrhea, Sore throat Cardiovascular: Reports: Chest pain. Denies: Palpitations Respiratory: Denies: Dyspnea, Cough, Dyspnea on exertion Gastrointestinal: Denies: Abdominal pain, Nausea, Vomiting, Diarrhea, Melena, Hematochezia Genitourinary: Denies: Dysuria, Hematuria, Frequency Musculoskeletal: Denies: Back pain, Extremity Pain Skin: Denies: Rash, Wounds Neurological: Denies: Headache, Weakness, Numbness Physical Exam Vital Signs/Narrative: Vital Signs Temp Pulse Resp BP Pulse Ox 10/28/19 21:10 92 121/105 H 10/28/19 20:49 99.4 F H 89 16 218/107 H 97 Inital Vital Signs reviewed: Yes General: Well nourished, Well developed, No Acute Distress Head: Normocephalic, Atraumatic Eyes: Perrl, EOMI ENT: Moist mucous membranes, No rhinorrhea Neck: Supple, Nontender Cardiovascular: Regular rate, Regular rhythm, No murmurs Respiratory: No distress, CTA bilaterally, Chest nontender Abdomen: Soft, Nontender, Nondistended, Normal bowel sounds Back: Nontender, Normal Inspection Extremities: Nontender, No edema Skin: Normal color, No rash Neurological: Alert, Oriented x3, Cranial nerves II-XII grossly intact, Normal Strength, Normal Sensation Psychological: Normal affect, Normal Mood Diagnostic/Tx/Re-eval Clinical Impression(s) from Imaging Studies Chest X-Ray 10/28/19 21:15 IMPRESSION: Normal x-ray examination of the chest. Electronically Signed: Yannick Prasad at 21:47 EDT Tel , Service support , Chest CTA 10/28/19 22:10 IMPRESSION: 1. No demonstrated pulmonary embolism or aortic dissection. 2. No infiltrate or pleural effusions are seen. Electronically Signed: Alejandro Mccartney MD at 22:35 EDT Tel , Service support , Laboratory Data 10/28/19 10/28/19 20:54 20:54 WBC 10.1 RBC 4.04 L Hgb 12.1 Hct 37.4 MCV 92.6 MCH 30.0 MCHC 32.4 RDW Std Deviation 42.8 RDW Coeff of Mat 12.7 Plt Count 300 MPV 9.6 Immature Gran % (Auto) 0.500 Neut % (Auto) 61.1 Lymph % (Auto) 30.7 [place] % (Auto) 6.1 Eos % (Auto) 1.3 Baso % (Auto) 0.3 Absolute Neuts (auto) 6.2 Absolute Lymphs (auto) 3.11 Nucleated RBC % 0 Sodium 139 Potassium 3.8 Chloride 109 H Carbon Dioxide 25.0 Anion Gap 5 BUN 20 H Creatinine 0.70 Estim Creat Clear Calc 97.09 Est GFR (MDRD) Af Amer 119 Est GFR (MDRD) Non-Af 99 BUN/Creatinine Ratio 28.5 H Glucose 118 H Calcium 8.7 Troponin I < 0.015 - Rhythm Strip Rhythm Strip: Sinus Rhythm Rate: 92 Ectopy: None - EKG Initial EKG Interpretation: Sinus Rhythm - Sinus rhythm at 92 bpm. TX interval 154 ms. QTC of 430 ms. No evidence of ST elevation or depression at this time. - Medical Decision Making Appears well and nontoxic. Systolic blood pressure significantly elevated upon arrival. EKG nonischemic. Initial troponin negative. CTA of the chest shows no evidence of dissection. Spontaneously the patient's blood pressure is reduced by approximately 50 points. Patient states she is still having intermittent chest pain. Was given aspirin as well as doses of nitroglycerin upon arrival which did reduce her chest pain. Patient has no documented history of hypertension. Given her continued intermittent chest pain patient will be admitted to the hospital for cardiac observation as well as stress testing. ED Disposition - Plan for ED Patient: Disposition: [facility] Hospital or Unit Diagnosis: Chest pain, Uncontrolled hypertension Referrals: Milly Finn PA [Primary Care Provider] -
--- NOTE | 2019-10-28 21:15 | RAD_ITS ---
STUDY: X-RAY CHEST REASON FOR EXAM: Female, 39 years old. patient was laying in bed suddenly started itching all over and felt like face was swelling. patient then started with chest pain. TECHNIQUE: Frontal view of the chest COMPARISON: None. FINDINGS: The lungs are clear and expanded. There is no demonstrated pleural abnormality. Normal size heart. Normal mediastinum and garfield. Normal visualized pulmonary arteries. Normal visualized aortic arch and descending thoracic aorta. Normal visualized thoracic spine. Normal visualized ribs, clavicles, and shoulders. There is no demonstrated abnormality of the visualized soft tissue structures of the upper abdomen. RAD/Chest 1 View (Portable) IMPRESSION: Normal x-ray examination of the chest. Electronically Signed: Yannick Prasad, at 21:47 EDT Tel , Service support ,
[2019-10-28 21:33] LABS: Anion Gap 5 (5-15); BUN 20 mg/dL (7-18); BUN/Creat Ratio 28.5 RATIO (10-20); Calcium,Total 8.7 mg/dL (8.5-10.1); Chloride 109 mmol/L (98-107); EST Glomerular Filtration Rate 99 mL/min (>60); Est Glom Filt Rate - Afr Amer 119 mL/min (>60); Estimated Creatinine Clearance 97.09 ml/min; Glucose 118 mg/dL (74-106); Potassium 3.8 mmol/L (3.5-5.1); Sodium Level 139 mmol/L (136-145)
--- NOTE | 2019-10-28 22:10 | CT_ITS ---
STUDY: CTA CHEST REASON FOR EXAM: Female, 39 years old. Chest pain, facial swelling and itching. RADIATION DOSAGE (If Supplied By Facility): CTDIvol = ( 16.22 ) mGy, DLP = ( 504.92 ) mGycm TECHNIQUE: The examination was performed with the intravenous administration of IV 100mL Isovue-370. Post-processing of the angiographic images was performed, with multiplanar reformation and 3D reconstruction. Individualized dose optimization techniques were used for this CT. COMPARISON: None. FINDINGS: Normal enhancement of the main pulmonary artery and right and left pulmonary arteries. Normal enhancement of the bilateral peripheral pulmonary arteries. There is no demonstrated pulmonary embolism. Normal thoracic aorta and visualized great vessels. There is no demonstrated aortic dissection. Normal heart and pericardium. Normal mediastinum. Normal hilar regions. Normal visualized trachea and bronchi. The lungs are well expanded. Normal pulmonary parenchyma. Normal pleura. Normal chest wall structures. Normal osseous structures. Normal visualized upper abdomen. CT/CTA Chest W/WO Contrast IMPRESSION: 1. No demonstrated pulmonary embolism or aortic dissection. 2. No infiltrate or pleural effusions are seen. Electronically Signed: Alejandro Mccartney MD at 22:35 EDT Tel , Service support ,
--- NOTE | 2019-10-28 22:48 | PCM.HP.STD ---
Problem List (1) Allergic reaction Status: Acute (2) Chest pain Status: Acute (3) Uncontrolled hypertension Status: Acute (4) Morbid obesity with BMI of 40.0-44.9, adult Status: Chronic History of Present Illness Date of Admission: 10/28/19 Chief Complaint: chest pain The patient is a 39 year old F with a significant history of gestational diabetes; and preeclampsia who presents to the emergency department with excruciating chest pain while at home with her . Her chest pain was retrosternal. It was nonradiating. It felt like there was a brick sitting on her chest. The pain was excruciating. There was no ameliorating or aggravating factors to the pain. Her symptoms actually started with itching in her palms. Then she saw generalized body rash. Her head felt hot. She had a stiff neck. She had itchy ears and itchy tongue. She felt that her tongue was closing up. She had shortness of breath and she was diaphoretic. She took some Benadryl because she thought that she was having allergic reaction. She denies ingesting anything that might have caused an allergic reaction. About 2 hours before her symptoms started she ate salad with a feta cheese that was homemade. It was the first time she had eaten a salad with feta cheese. Her blood pressure at home was 187/109. She is not hypertensive although she has had preeclampsia. The blood pressure machine at home that she used was for her who has multiple comorbidities. Her initial blood pressure at the emergency department was 218/107. Past Medical History Past Medical History (Chronic Problems): Chronic Problems (Last Updated 10/29/19 @ 02:[address] Hayden Garcia MD) Morbid obesity with BMI of 40.0-44.9, adult (Chronic) Medical History: Medical History (Last Updated 10/29/19 @ 02:[address] Hayden Garcia MD) Gestational diabetes O24.419 Preeclampsia O14.90 Allergies ciprofloxacin [From Cipro] Allergy (Verified 10/28/19 20:59) Hives ciprofloxacin HCl [From Cipro] Allergy (Verified 10/28/19 20:59) Hives Home Medications: Ambulatory Orders Medication Instructions Recorded Sumatriptan Succinate [Imitrex] 25 mg PO PRN PRN 10/28/19 Surgical History: - - Right fallopian tube removal secondary to ectopic . Tubal ligation of the left fallopian tube. [place] tooth removal Lives: Spouse/ Significant Other Smoking Status: Never smoker Alcohol: None Drugs: None Review of Systems Constitutional: Denies: Chills, Fever, Weight Change HEENT: Denies: Head Aches, Sinus Congestion, Sinus Drainage Cardiovascular: Reports: Chest Pain. Denies: Palpitations Respiratory: Reports: Shortness of Breath. Denies: Cough, Sputum production Gastrointestinal: Denies: Abdominal Pain, Nausea, Vomiting Genitourinary: Denies: Dysuria Musculoskeletal: Denies: Joint Pain, Joint Tenderness Skin: Denies: Rash, Wounds Neurological: Denies: Numbness, Tingling, Focal weakness Psychiatric: Denies: Anxiety, Depression, Homicidal Ideations, Suicidal Ideations Hematologic/ Lymphatic: Denies: Easy Bruising, Easy Bleeding VTE Information - Inpt Only VTE Present on Admission: No VTE Mechan Device Prophylaxis: None VTE Pharm Prophylaxis ordered?: Yes Patient Problems: Active and Suspected Problems (Last Updated 10/29/19 @ 02:[address] Hayden Garcia MD) Chest pain (Acute) Uncontrolled hypertension (Acute) Allergic reaction (Acute) - Physical Exam Vitals/I&O's: Vital Signs Temp Pulse Resp BP Pulse Ox 99.4 F H 82 16 166/80 H 98 10/28/19 20:49 10/28/19 22:26 10/28/19 22:26 10/28/19 22:26 10/28/19 22:26 Oxygen Delivery Method Room Air Weight: 126.5 kg Body Mass Index (BMI) 46.4 General: Alert, Oriented x3, Cooperative HEENT: Atraumatic, PERRLA, EOMI, Normocephalic, EAC Clear Neck: Supple, No JVD, Negative Carotid Bruits Lungs: Clear to auscultation, Normal air movement, No rhonchi, No wheeze, No rales Cardiovascular: Regular rate, No murmurs Abdomen: Bowel Sounds Present, Soft, Non Tender Extremities: No edema, Capillary Refill Less than 3 Seconds Skin: No rashes, No breakdown Musculoskeletal: No Tenderness to Palpation of Joints or Extremities Neurological: Cranial nerves II-XII grossly intact Psych/Mental Status: Normal Affect, Appropriate Laboratory Results 10/28/19 20:54: WBC 10.1, RBC 4.04 L, Hgb 12.1, Hct 37.4, MCV 92.6, MCH 30.0, MCHC 32.4, RDW Std Deviation 42.8, RDW Coeff of Mat 12.7, Plt Count 300, MPV 9.6, Immature Gran % (Auto) 0.500, Neut % (Auto) 61.1, Lymph % (Auto) 30.7, [place] % (Auto) 6.1, Eos % (Auto) 1.3, Baso % (Auto) 0.3, Absolute Neuts (auto) 6.2, Absolute Lymphs (auto) 3.11, Nucleated RBC % 0 10/28/19 20:54: Sodium 139, Potassium 3.8, Chloride 109 H, Carbon Dioxide 25.0, Anion Gap 5, BUN 20 H, Creatinine 0.70, Estim Creat Clear Calc 97.09, Est GFR (MDRD) Af Amer 119, Est GFR (MDRD) Non-Af 99, BUN/Creatinine Ratio 28.5 H, Glucose 118 H, Calcium 8.7, Troponin I < 0.015 Current Medications Nitroglycerin (Nitrostat) 0.4 mg SUBLINGUAL Q5M PRN PRN Reason: Chest pain Last Admin: 10/28/19 21:21 Dose: 0.4 mg Documented by: Assessment/Plan All Active Problems (Last Updated 10/29/19 @ 02:[address] Hayden Garcia MD) Chest pain (Acute) Uncontrolled hypertension (Acute) Allergic reaction (Acute) The patient is a 39 year old F with a significant history of gestational diabetes; and preeclampsia who presents emergency department with excruciating chest pain; itching generalized body rash; feeling of throat closing up; shortness of breath; and diaphoresis. Allergic reaction Etiology is unclear at this time. Discussed emergent department to order Solu-Medrol 125 mg x 1. Prednisone 40 mg x 1 in a.m. We will start patient on Claritin. Benadryl as needed for allergic reaction. Pepcid IV twice daily Chest pain Likely secondary to allergic reaction Initial troponin was negative. Trend troponin Actual chest x-ray image independently reviewed: No acute cardiopulmonary process. Received aspirin 324 mg at emergency department. Chest pain is likely secondary to allergic reaction. But however out of abundance of caution will continue patient on daily baby aspirin for now. Hypertensive urgency On presentation her blood pressure was 218/107 Hydralazine PRN ordered. If her blood pressure remains elevated especially with a history of preeclampsia consider p.o. blood pressure medication. Trend blood pressures. DVT prophylaxis Subcutaneous Lovenox. OBSV E&M: [id number] Initial observation care L3
[2019-10-28] MEDS: MethylPREDNISolone 125 MG/2 ML Vial IV (23:14)
--- NOTE | 2019-10-28 23:30 | EKG12_ITS ---
Test Reason : CP Blood Pressure : / mmHG Vent. Rate : 092 BPM Atrial Rate : 092 BPM P-R Int : 154 ms QRS Dur : 092 ms QT Int : 348 ms P-R-T Axes : 060 013 049 degrees QTc Int : 430 ms Normal sinus rhythm Normal ECG Confirmed by SERENA FRANZ MD ([id number]), senior technical editor GHISLAINE WYNNE ([id number]) on 10/30/2019 11:01:53 AM Referred By: MAIRA Confirmed By:SREENA FRANZ MD
[2019-10-28] MEDS: Famotidine 200 MG/20 ML MDV 20 MG in 0.9% Normal Saline (Pres. free 8 ML 300 MG IV (23:56)
[2019-10-28] MEDS: Loratadine 10 MG Tablet PO (23:57)
[2019-10-29 00:03] VITALS: BP 159/88; PULSE 89
[2019-10-29] MEDS: hydrALAZINE 20 MG/ML Vial 10 MG IV (00:03)
[2019-10-29] MEDS: 0.9% Saline Lock 10 ML Syringe IV ×2 (00:03→10:07)
[2019-10-29 03:00] VITALS: PULSE 99
[2019-10-29 03:09] LABS: Absolute Lymphocyte Count 1.21 X10^3/uL (0.83-4.51); Absolute Neutrophil Count 9.6 X10^3/uL (2.0-7.7); Basophil# 0.02 X10^3/uL; Basophil% 0.2 % (0-1); Eosinophil# 0.01 X10^3/uL; Eosinophils% 0.1 % (0-5); Hematocrit 37.3 % (37-47); Hemoglobin 12.3 g/dL (12.0-15.0); Lymphocyte # 1.21 X10^3/ul (4.0); Lymphocyte % 10.9 % (19-41); Mean Corpuscular Hgb 30.3 pg (27.0-32.0); Mean Corpuscular Volume 91.9 fL (81-99); Mean Platelet Vol. 9.7 fl (6.2-12.0); Monocyte# 0.19 X10^3/uL; Monocyte% 1.7 % (0-10); NRBC Flagged by Analyzer 0 % (0-5); Neutrophil # 9.62 X10^3/uL (2.7-7.7); Neutrophil % 86.6 % (47-70); Platelet Count 272 K/mm3 (150-450); RBC Distribution Width CV 12.8 % (11.6-14.6); RBC Distribution Width SD 42.7 fl (35.1-43.9); Red Blood Count 4.06 M/mm3 (4.2-5.4); White Blood Count 11.1 K/mm3 (4.4-11.0)
[2019-10-29 03:30] LABS: Anion Gap 10 (5-15); BUN 16 mg/dL (7-18); BUN/Creat Ratio 21.7 RATIO (10-20); Calcium,Total 8.4 mg/dL (8.5-10.1); Chloride 106 mmol/L (98-107); Creatinine, Serum 0.74 mg/dL (0.55-1.02); EST Glomerular Filtration Rate 93 mL/min (>60); Est Glom Filt Rate - Afr Amer 113 mL/min (>60); Estimated Creatinine Clearance 91.84 ml/min; Glucose 194 mg/dL (74-106); Potassium 3.8 mmol/L (3.5-5.1); Sodium Level 137 mmol/L (136-145)
[2019-10-29 04:28] VITALS: BP 156/81; PULSE 97; RESP 16; TEMP 36.8; O2SAT 98
[2019-10-29 07:00] VITALS: PULSE 95
[2019-10-29 07:26] VITALS: O2SAT 96
[2019-10-29] MEDS: Aspirin 81 MG TAB.CHEW PO (09:01)
[2019-10-29] MEDS: Loratadine 10 MG Tablet PO (09:01)
[2019-10-29] MEDS: Enoxaparin 40 MG/0.4 ML Syringe SC (09:01)
[2019-10-29] MEDS: predniSONE 20 MG Tablet 40 MG PO (09:01)
[2019-10-29 09:05] VITALS: BP 150/82; PULSE 100; RESP 18; TEMP 36.9; O2SAT 96
--- NOTE | 2019-10-29 09:23 | ECHOD_ITS ---
Reason For Study: CP Procedure This was a 2D Doppler, Color Flow transthoracic echocardiogram. Exam performed portable in patient room. Left Ventricle Normal LV size. The estimated ejection fraction is 65 %. Left ventricular systolic function is normal. Stage 2 diastolic dysfunction. No regional wall motion abnormalities noted. Right Ventricle Normal RV size. Normal systolic function. Atria Normal left atrium. Normal right atrium. Mitral Valve Normal mitral valve. Tricuspid Valve Normal tricuspid valve. Aortic Valve Normal aortic valve. Pulmonic Valve Normal pulmonic valve. Great Vessels Normal aortic root. The pulmonary artery is normal size. Normal inferior vena cava. Pericardium/Pleural No pericardial effusion. MMode/2D Measurements & Calculations LVIDd: 4.6 cm IVSd: 0.98 cm Ao root diam: 3.5 cm LVIDs: 2.6 cm LVPWd: 0.96 cm LA dimension: 3.5 cm FS: 43.4 % LAV(MOD-bp): 40.7 ml LA A4 area: 16.2 cm2 RA A4 area: 10.1 cm2 LAV(MOD-bp) Indexed: 18.0 ml/m2 LAV(MOD-sp2): 35.8 ml LAV(MOD-sp4): 44.4 ml Time Measurements MV dec time: 0.23 sec Doppler Measurements & Calculations MV E max alonso: 95.6 cm/sec Lat Peak E' Alonso: 9.2 cm/sec Med Peak E' Alonso: 7.7 cm/sec MV A max alonso: 104.7 cm/sec E/E' lat: 10.4 E/E' med: 12.3 MV E/A: 0.91 MV V2 max: 117.8 cm/sec MV P1/2t max alonso: 97.4 cm/sec Ao V2 max: 180.5 cm/sec MV max P.5 mmHg MV P1/2t: 70.8 msec Ao max P.0 mmHg MV V2 mean: 71.2 cm/sec MV dec slope: 402.9 cm/sec2 MV mean P.4 mmHg MVA(P1/2t): 3.1 cm2 MV V2 VTI: 22.2 cm LV V1 max: 131.7 cm/sec PA V2 max: 134.8 cm/sec LV V1 max P.9 mmHg Interpretation Summary Normal LV size. The estimated ejection fraction is 65 %. Left ventricular systolic function is normal. Stage 2 diastolic dysfunction. Ordering Physician: Kaitlin Sparks Referring Physician: Zion Finn Performed By: Adán Wick RCS
[2019-10-29] MEDS: Famotidine 200 MG/20 ML MDV 20 MG in 0.9% Normal Saline (Pres. free 8 ML 300 MG IV (10:06)
--- NOTE | 2019-10-29 11:11 | DCINST_ITS ---
- Discharge Diagnoses Current Active Problems: Current Active and Chronic Problems (Last Updated 10/29/19 @ 02:[address] Hayden Garcia MD) Chest pain (Acute) Uncontrolled hypertension (Acute) Allergic reaction (Acute) You will use the following diet at home:: Calorie/Carbohydrate Controlled (specify 1200, 1400, etc) Discharge Activity: Return to Normal Activity Call your doctor if you observe: Shortness of breath, Dizziness, Fainting spells, Chest pain Additional Instructions: Monitor BP twice daily and document findings, report to PCP. Allergies/Adverse Reactions: Allergies ciprofloxacin [From Cipro] Allergy (Verified 10/28/19 20:59) Hives ciprofloxacin HCl [From Cipro] Allergy (Verified 10/28/19 20:59) Hives Medications to take at Discharge Sumatriptan Succinate [Imitrex] 25 mg PO PRN PRN 10/28/19 Lisinopril/Hydrochlorothiazide [Lisinopril-Hctz 20-12.5 mg Tab] 1 ea PO DAILY #30 tab 10/29/19 Loratadine [Claritin] 10 mg PO DAILY #30 tab 10/29/19 Metformin HCl [Metformin HCl ER] 500 mg PO DAILY #30 tab.er.24h 10/29/19 Prednisone 40 mg PO DAILY 5 Days #10 tab 10/29/19 The following prescriptions were given: Loratadine [Claritin] 10 mg PO DAILY #30 tab Transmission Status: Pending to [facility] Lisinopril/Hydrochlorothiazide [Lisinopril-Hctz 20-12.5 mg Tab] 1 ea PO DAILY #30 tab Transmission Status: Pending to [facility] Metformin HCl [Metformin HCl ER] 500 mg PO DAILY #30 tab.er.24h Prednisone 40 mg PO DAILY 5 Days #10 tab Transmission Status: Pending to [facility] Primary Care Physician: Milly Finn PA [Primary Care Provider] - Please follow up with your Primary Care Physician in: 3-5 Days Test Results: Test results from this visit will be discussed in further detail at your follow- up appointment, if applicable. Proposed Discharge Date: 10/29/19
--- NOTE | 2019-10-29 11:14 | DS.PCM_ITS ---
<Kaitlin Sparks - Last Filed: 10/29/19 12:18> Discharge Date and Diagnosis Date of Admission: 10/28/19 Date of Discharge: 10/29/19 - Primary Discharge Diagnosis Acute Problems: Active Problems (Last Updated 10/29/19 @ 02:[address] Hayden Garcia MD) 1. Hypertensive urgency 2. Chest pressure, secondary to #1 3. Allergic reaction, unclear etiology 4. History of migraines 5. New diagnosis type 2 diabetes mellitus - Secondary Discharge Diagnosis Chronic Problems: Chronic Problems (Last Updated 10/29/19 @ 02:[address] Hayden Garcia MD) Morbid obesity with BMI of 40.0-44.9, adult (Chronic) Hospital Course and Treatment Imaging Results: Diagnostic Data Chest X-Ray 10/28/19 21:15 IMPRESSION: Normal x-ray examination of the chest. Electronically Signed: Yannick Prasad at 21:47 EDT Tel , Service support , Chest CTA 10/28/19 22:10 IMPRESSION: 1. No demonstrated pulmonary embolism or aortic dissection. 2. No infiltrate or pleural effusions are seen. Electronically Signed: Alejandro Mccartney MD at 22:35 EDT Tel , Service support , Operations: None Procedures: 2-D Echocardiogram Summary of Care Provided: The patient is a 39 year old F admitted 10/28/2019 due to chest pain. 1. Hypertensive urgency-blood pressure on admission 218/107. Patient has a history of preeclampsia and gestational hypertension. She was not previously on blood pressure regimen however reports her blood pressure has been increased over the past few weeks. Blood pressure improved during admission. Discharged on lisinopril 20/HCTZ 12.5 mg daily. Instructed patient to monitor blood pressure twice daily and document findings. Report blood pressure readings to primary care physician at follow-up. Echocardiogram demonstrates an EF of 65%, stage II diastolic dysfunction. 2. Chest pressure, secondary to #1-EKG and troponin negative. Echo as noted above. 3. Allergic reaction, unclear etiology-patient denies any new medications, soaps/lotions, foods, etc. She denies history of allergic reaction however reports she has sensitive skin. Recommend close follow-up with primary care physician and referral to medical imaging specialist if patient has recurrent episodes. Discharged on prednisone 40 mg daily for 5 days and recommend continued use of Claritin. 4. History of migraines-on PRN Imitrex. 5. New diagnosis type 2 diabetes mellitus-hemoglobin A1c 9.3%. Patient reports history of gestational diabetes. Prior hemoglobin A1c from 2018 and 2019 greater than 9 as well. Will initiate on metformin ER 500 mg daily with further glucose monitoring and outpatient follow-up. Patient seen and examined prior to discharge. Physical assessment as noted above. Patient is stable for discharge with follow up recommendations as noted above. This patient was seen by INMA Jacobs under the supervision of Dr. Rios. - Physical Exam Vitals/I&O's: Vital Signs Temp Pulse Resp BP Pulse Ox 98.4 F 100 18 150/82 H 96 10/29/19 09:05 10/29/19 09:05 10/29/19 09:05 10/29/19 09:05 10/29/19 09:05 Oxygen Delivery Method Room Air Weight: 273 lb 9.498 oz Body Mass Index (BMI) 45.5 Intake and Output for Last 24 Hours 10/27/19 10/28/19 10/29/19 23:59 23:59 23:59 Intake Total 60 / 60 135 / 135 Balance 60 / 60 135 / 135 General: Alert, Oriented x3, Cooperative HEENT: Atraumatic, PERRLA, EOMI, Normocephalic Neck: Supple, No JVD, Negative Carotid Bruits Lungs: Clear to auscultation, Normal air movement Cardiovascular: Regular rate, No murmurs Abdomen: Bowel Sounds Present, Soft, Non Tender, Non-Distended, Obese Extremities: No clubbing, No cyanosis, No edema, Capillary Refill Less than 3 Seconds Skin: No rashes, No breakdown Musculoskeletal: No Tenderness to Palpation of Joints or Extremities Neurological: Cranial nerves II-XII grossly intact, Neuro grossly intact Psych/Mental Status: Normal Affect, Appropriate Laboratory Results 10/28/19 20:54: WBC 10.1, RBC 4.04 L, Hgb 12.1, Hct 37.4, MCV 92.6, MCH 30.0, MCHC 32.4, RDW Std Deviation 42.8, RDW Coeff of Mat 12.7, Plt Count 300, MPV 9.6, Immature Gran % (Auto) 0.500, Neut % (Auto) 61.1, Lymph % (Auto) 30.7, [place] % (Auto) 6.1, Eos % (Auto) 1.3, Baso % (Auto) 0.3, Absolute Neuts (auto) 6.2, Absolute Lymphs (auto) 3.11, Nucleated RBC % 0 10/28/19 20:54: Sodium 139, Potassium 3.8, Chloride 109 H, Carbon Dioxide 25.0, Anion Gap 5, BUN 20 H, Creatinine 0.70, Estim Creat Clear Calc 97.09, Est GFR (MDRD) Af Amer 119, Est GFR (MDRD) Non-Af 99, BUN/Creatinine Ratio 28.5 H, Glucose 118 H, Calcium 8.7, Troponin I < 0.015 10/28/19 23:55: Troponin I < 0.015 10/29/19 02:58: Sodium 137, Potassium 3.8, Chloride 106, Carbon Dioxide 21.0, Anion Gap 10, BUN 16, Creatinine 0.74, Estim Creat Clear Calc 91.84, Est GFR (MDRD) Af Amer 113, Est GFR (MDRD) Non-Af 93, BUN/Creatinine Ratio 21.7 H, Glucose 194 H, Calcium 8.4 L 10/29/19 02:58: WBC 11.1 H, RBC 4.06 L, Hgb 12.3, Hct 37.3, MCV 91.9, MCH 30.3, MCHC 33.0, RDW Std Deviation 42.7, RDW Coeff of Mat 12.8, Plt Count 272, MPV 9.7, Immature Gran % (Auto) 0.500, Neut % (Auto) 86.6 H, Lymph % (Auto) 10.9 L, [place] % (Auto) 1.7, Eos % (Auto) 0.1, Baso % (Auto) 0.2, Absolute Neuts (auto) 9.6 H, Absolute Lymphs (auto) 1.21, Nucleated RBC % 0 10/29/19 02:58: Troponin I < 0.015 10/29/19 02:58: Hemoglobin A1c Pending Current Medications Acetaminophen (Tylenol) 650 mg PO Q6H PRN PRN PRN Reason: Pain Score 1-10/Temp > 100.7 F Albuterol Sulfate (Ventolin Aerosols) 2.5 mg INHALATION Q2H PRN PRN PRN Reason: SOB/Wheezing Aspirin (Aspirin, Baby) 81 mg PO DAILY@0800 [facility] Last Admin: 10/29/19 09:01 Dose: 81 mg Documented by: Dextrose (D50w Syringe) 0 gm IV X1 PRN; Protocol PRN Reason: Hypoglycemia Diphenhydramine HCl (Benadryl) 25 mg IV Q4H PRN PRN PRN Reason: allergic reaction Enoxaparin Sodium (Lovenox) 40 mg SC DAILY [facility] Last Admin: 10/29/19 09:01 Dose: 40 mg Documented by: Glucagon () 1 mg IM .X1 PRN PRN Reason: Hypoglycemia Hydralazine HCl (Apresoline Iv) 10 mg IV Q4H PRN PRN PRN Reason: SBP > 160 OR DBP > 120 Hydrochlorothiazide () 12.5 mg PO X1 ONE Stop: 10/29/19 11:16 Famotidine 20 mg/ Sodium (Chloride) 10 mls @ 300 mls/hr IV Q12 [facility] Last Infusion: 10/29/19 10:08 Dose: Infused Documented by: Sodium Chloride () 250 mls @ 15 mls/hr IV .[id number] PRN PRN Reason: Saline Flush Sodium Chloride () 250 mls @ 15 mls/hr IV .[id number] PRN PRN Reason: Additional IVPB Infusion Lisinopril (Zestril) 10 mg PO DAILY [facility] Loratadine (Claritin) 10 mg PO DAILY [facility] Last Admin: 10/29/19 09:01 Dose: 10 mg Documented by: Melatonin (Melatonin) 3 mg PO QHS PRN PRN PRN Reason: INSOMNIA Morphine Sulfate () 2 mg IV Q4H PRN PRN PRN Reason: pain 6-10/10 Ondansetron HCl (Zofran) 4 mg IV Q8H PRN PRN PRN Reason: NAUSEA/VOMITING Sodium Chloride () 10 - 40 ml IV UD PRN PRN Reason: SALINE FLUSH Last Admin: 10/29/19 10:07 Dose: 10 ml Documented by: Discharge Diet: No Restrictions Discharge Activity: Return to Normal Activity Call your doctor if you observe: Shortness of breath, Dizziness, Fainting spells, Chest pain Home Medications: Medications to take at Discharge Sumatriptan Succinate [Imitrex] 25 mg PO PRN PRN 10/28/19 Lisinopril/Hydrochlorothiazide [Lisinopril-Hctz 20-12.5 mg Tab] 1 ea PO DAILY #30 tab 10/29/19 Loratadine [Claritin] 10 mg PO DAILY #30 tab 10/29/19 Prednisone 40 mg PO DAILY 5 Days #10 tab 10/29/19 Following Prescrptions Were Given to Patient: Loratadine [Claritin] 10 mg PO DAILY #30 tab Transmission Status: Received by [facility] Lisinopril/Hydrochlorothiazide [Lisinopril-Hctz 20-12.5 mg Tab] 1 ea PO DAILY #30 tab Transmission Status: Received by [facility] Prednisone 40 mg PO DAILY 5 Days #10 tab Transmission Status: Received by [facility] Primary Care Physician: Milly Finn PA [Primary Care Provider] - Please follow up with your Primary Care Physician in: 3-5 Days Disposition: Home Minutes spent on discharge:: 35 Patient Condition:: Stable Medical Necessity - Tobacco Use Smoking Status: Never smoker Meaningful Use Info Meaningful Use Diagnoses (Choose all that apply): None applicable <Ashleigh Rios E - Last Filed: 10/29/19 12:47> Discharge Date and Diagnosis - Secondary Discharge Diagnosis Chronic Problems: Chronic Problems (Last Updated 10/29/19 @ 02:[address] Hayden Garcia MD) Morbid obesity with BMI of 40.0-44.9, adult (Chronic) Hospital Course and Treatment Imaging Results: 10/29/19 09:23 Echo Complete [ECHO] Routine Summary of Care Provided: Hospitalist note Discharge summary above reviewed and I concur with above discharge and treatment plan. Patient presented to the emergency room because of itching, skin rash and then started having chest pressure and she was found to have highly elevated blood pressure. Patient denied using any new medications, new foods or any new items that may cause allergy. She mentioned that her blood blood pressure at home was around 180 systolic. In the ED, it was more than 20 systolic. Her EKG revealed normal sinus rhythm without evidence of acute segment changes or cardiac arrhythmias. Troponin was negative x2. CTA chest done and showed no PE or dissection. Chest x-ray showed no acute findings. Routine blood work was unremarkable except for blood glucose which was 194 mg/dL on the second day. Hemoglobin A1c was 5.8%. Patient had no history of diabetes. She was treated with IV steroids and Benadryl for the allergic reaction. There was no clear etiology of this allergic reaction. 2D echocardiogram done and revealed ejection fraction of 65%, stage II diastolic function. Patient was started on lisinopril/HCTZ. Patient discharged home in a stable medical condition, discharged on fixed dose of prednisone 40 mg p.o. daily for 5 days, started on lisinopril/HCTZ for newly diagnosed hypertension, recommended follow-up with PCP in 3 to 5 days. - Physical Exam General: Alert, Oriented x3, Cooperative, No apparent distress. HEENT: Atraumatic, PERRLA, EOMI. Neck: Supple, No JVD, Negative Carotid Bruits, Trachea Midline, Thyroid Normal. Lungs: Clear to auscultation, Normal air movement, No rhonchi, No wheeze, No rales. Cardiovascular: Regular rate, Regular Rhythm, Normal S1, Normal S2, PMI Normal. Abdomen: Bowel Sounds Present, Soft, Non Tender, Non-Distended, No Hepato- splenomegaly, obese. Extremities: No clubbing, No cyanosis, No edema Skin: No rashes, No breakdown Neurological: Cranial nerves are intact, neuro grossly intact Vital Signs are stable. This note was generated with [employer] dictation software. It may contain incorrect words, spelling, and punctuation that were not noted in checking the note before signing. - Physical Exam Vitals/I&O's: Vital Signs Temp Pulse Resp BP Pulse Ox 98.4 F 100 18 150/82 H 96 10/29/19 09:05 10/29/19 09:05 10/29/19 09:05 10/29/19 09:05 10/29/19 09:05 Oxygen Delivery Method Room Air Weight: 273 lb 9.498 oz Body Mass Index (BMI) 45.5 Intake and Output for Last 24 Hours 10/27/19 10/28/19 10/29/19 23:59 23:59 23:59 Intake Total 60 / 60 135 / 135 Balance 60 / 60 135 / 135 Laboratory Results 10/28/19 20:54: WBC 10.1, RBC 4.04 L, Hgb 12.1, Hct 37.4, MCV 92.6, MCH 30.0, MCHC 32.4, RDW Std Deviation 42.8, RDW Coeff of Mat 12.7, Plt Count 300, MPV 9.6, Immature Gran % (Auto) 0.500, Neut % (Auto) 61.1, Lymph % (Auto) 30.7, [place] % (Auto) 6.1, Eos % (Auto) 1.3, Baso % (Auto) 0.3, Absolute Neuts (auto) 6.2, Absolute Lymphs (auto) 3.11, Nucleated RBC % 0 10/28/19 20:54: Sodium 139, Potassium 3.8, Chloride 109 H, Carbon Dioxide 25.0, Anion Gap 5, BUN 20 H, Creatinine 0.70, Estim Creat Clear Calc 97.09, Est GFR (MDRD) Af Amer 119, Est GFR (MDRD) Non-Af 99, BUN/Creatinine Ratio 28.5 H, Glucose 118 H, Calcium 8.7, Troponin I < 0.015 10/28/19 23:55: Troponin I < 0.015 10/29/19 02:58: Sodium 137, Potassium 3.8, Chloride 106, Carbon Dioxide 21.0, Anion Gap 10, BUN 16, Creatinine 0.74, Estim Creat Clear Calc 91.84, Est GFR (MDRD) Af Amer 113, Est GFR (MDRD) Non-Af 93, BUN/Creatinine Ratio 21.7 H, Glucose 194 H, Calcium 8.4 L 10/29/19 02:58: WBC 11.1 H, RBC 4.06 L, Hgb 12.3, Hct 37.3, MCV 91.9, MCH 30.3, MCHC 33.0, RDW Std Deviation 42.7, RDW Coeff of Mat 12.8, Plt Count 272, MPV 9.7, Immature Gran % (Auto) 0.500, Neut % (Auto) 86.6 H, Lymph % (Auto) 10.9 L, [place] % (Auto) 1.7, Eos % (Auto) 0.1, Baso % (Auto) 0.2, Absolute Neuts (auto) 9.6 H, Absolute Lymphs (auto) 1.21, Nucleated RBC % 0 10/29/19 02:58: Troponin I < 0.015 10/29/19 02:58: Hemoglobin A1c 5.8 H Current Medications Acetaminophen (Tylenol) 650 mg PO Q6H PRN PRN PRN Reason: Pain Score 1-10/Temp > 100.7 F Albuterol Sulfate (Ventolin Aerosols) 2.5 mg INHALATION Q2H PRN PRN PRN Reason: SOB/Wheezing Aspirin (Aspirin, Baby) 81 mg PO DAILY@0800 [facility] Last Admin: 10/29/19 09:01 Dose: 81 mg Documented by: Dextrose (D50w Syringe) 0 gm IV X1 PRN; Protocol PRN Reason: Hypoglycemia Diphenhydramine HCl (Benadryl) 25 mg IV Q4H PRN PRN PRN Reason: allergic reaction Enoxaparin Sodium (Lovenox) 40 mg SC DAILY [facility] Last Admin: 10/29/19 09:01 Dose: 40 mg Documented by: Glucagon () 1 mg IM .X1 PRN PRN Reason: Hypoglycemia Hydralazine HCl (Apresoline Iv) 10 mg IV Q4H PRN PRN PRN Reason: SBP > 160 OR DBP > 120 Famotidine 20 mg/ Sodium (Chloride) 10 mls @ 300 mls/hr IV Q12 [facility] Last Infusion: 10/29/19 10:08 Dose: Infused Documented by: Sodium Chloride () 250 mls @ 15 mls/hr IV .[id number] PRN PRN Reason: Saline Flush Sodium Chloride () 250 mls @ 15 mls/hr IV .[id number] PRN PRN Reason: Additional IVPB Infusion Lisinopril (Zestril) 10 mg PO DAILY [facility] Last Admin: 10/29/19 11:37 Dose: 10 mg Documented by: Loratadine (Claritin) 10 mg PO DAILY [facility] Last Admin: 10/29/19 09:01 Dose: 10 mg Documented by: Melatonin (Melatonin) 3 mg PO QHS PRN PRN PRN Reason: INSOMNIA Morphine Sulfate () 2 mg IV Q4H PRN PRN PRN Reason: pain 6-10/10 Ondansetron HCl (Zofran) 4 mg IV Q8H PRN PRN PRN Reason: NAUSEA/VOMITING Sodium Chloride () 10 - 40 ml IV UD PRN PRN Reason: SALINE FLUSH Last Admin: 10/29/19 10:07 Dose: 10 ml Documented by: Disposition: Home Minutes spent on discharge:: 27 Patient Condition:: Stable Meaningful Use Info Meaningful Use Diagnoses (Choose all that apply): None applicable OBSV E&M: 82220 Observation care discharge
[2019-10-29] MEDS: Lisinopril 10 MG Tablet PO (11:37)
[2019-10-29] MEDS: hydroCHLOROthiazide 12.5mg 12.5 MG PO (12:10)
[2019-10-29 12:11] LABS: Hemoglobin A1c 5.8 % (3.8-5.6)
--- NOTE | 2019-10-29 13:00 | PHA.DC.MC ---
Pharmacy Service has performed discharge medication reconciliation and counseling for this patient. Home Medications Sumatriptan Succinate [Imitrex] 25 mg PO PRN PRN 10/28/19 Lisinopril/Hydrochlorothiazide [Lisinopril-Hctz 20-12.5 mg Tab] 1 ea PO DAILY #30 tab 10/29/19 Loratadine [Claritin] 10 mg PO DAILY #30 tab 10/29/19 Prednisone 40 mg PO DAILY 5 Days #10 tab 10/29/19 The patient was counseled on the following discharge medications and changes in medications for homegoing were reviewed. 1. Lisinopril/HCTZ: 1 tab PO Daily 2. Prednisone: 40mg PO Daily x5 days 3. Claritin: 10mg PO Daily The Reason for Use, instructions for use, and potential side effects were reviewed for all new medications. The patient's questions regarding all of their medications were answered. The patient was able to verbally demonstrate an understanding of their discharge medications. The patient's discharge medication list was reviewed for discrepancies and discrepancies were resolved.
[2019-10-29 13:04] LABS: Cholesterol 150 mg/dL (200); High Density Lipoprotein 44 mg/dL; Triglycerides 57 mg/dL; Very Low Density Lipoprotein 11 mg/dL (5-40)
== END 2019-10-29 11:11 | disposition home or self-care (01) ==
LOC: ED 22:55 → PCU 10-29 00:45
PROVIDERS: Nurse Practitioner Family; Admitting Provider Hospitalist; Emergency Provider Emergency Medicine; PCP Physician Assistant; Visit Provider Hospitalist
DX: I16.0 Hypertensive urgency (principal); I10 Essential (primary) hypertension; R07.89 Other chest pain; E66.01 Morbid (severe) obesity due to excess calories; Z68.42 Body mass index [BMI] 45.0-49.9, adult; T78.40XA Allergy, unspecified, initial encounter; G43.909 Migraine, unspecified, not intractable, without status migrainosus; E11.9 Type 2 diabetes mellitus without complications
CPT/HCPCS: 36415; 71045; 71275; 80048; 80061; 83036; 84484; 85025; 93005; 93306; 96372; 96374; 96375; 96376; 97802; 99218; 99285; Q9967; A4216; G0378; J3490

== ENCOUNTER → 2019-11-08 | Outpatient (CLI) | payer MEDICAID, SELFPAY ==
[2019-10-28 23:34] VITALS: BMI 45.5
== END | disposition home or self-care (01) ==
LOC: LABSPEC 17:55
PROVIDERS: PCP Physician Assistant; Referring Provider Registered Nurse; Visit Provider Registered Nurse
DX: Z11.59 Encounter for screening for other viral diseases (principal)
CPT/HCPCS: 87635; G2023; U0003

== ENCOUNTER → 2019-11-20 10:43 | Outpatient (CLI) | payer MEDICAID, SELFPAY ==
[2019-10-28 23:34] VITALS: BMI 45.5
== END ==
PROVIDERS: PCP Family Medicine; Referring Provider Family Medicine; Visit Provider Family Medicine
DX: Z11.59 Encounter for screening for other viral diseases (principal)
CPT/HCPCS: 87635; 94799; U0003

== ENCOUNTER 2020-02-15 07:54 | Emergency (ER) | payer MEDICAID, SELFPAY ==
[2019-10-28 23:34] VITALS: BMI 45.5
[2020-02-15 07:54] VITALS: BP 181/104; PULSE 93; RESP 19; TEMP 36.3; O2SAT 97; BMI 45.1
--- NOTE | 2020-02-15 08:06 | ED.VIS.GEN ---
History of Present Illness Chief Complaint: Flank Pain Informant: Patient Narrative: 39-year-old female with past medical history of hypertension presents with concern for bilateral back pain that radiates around into her abdomen. States that it began approximately 2 weeks ago. It is been intermittent in nature. States it is worse with movement. No relieving factors. Denies any nausea, vomiting, diarrhea, constipation, urinary symptoms. Denies any vaginal bleeding or discharge. Last menstrual period was approximately 3 weeks ago. Past Medical History - Allergies and Home Meds Allergies/Adverse Reactions: Allergies ciprofloxacin [From Cipro] Allergy (Verified 02/15/20 07:58) Hives ciprofloxacin HCl [From Cipro] Allergy (Verified 02/15/20 07:58) Hives Primary Care Physician: Dewayne Murillo MD [Primary Care Provider] - Prior records reviewed: Yes Past Medical History: - - HTN Surgical History: - - Right fallopian tube removal secondary to ectopic . Tubal ligation of the left fallopian tube. [place] tooth removal Lives: With Family Smoking Status: Never smoker Alcohol: None Drugs: None Review of Systems General: Denies: Chills, Fever, Sweats Eyes: Denies: Visual changes - bilaterally, Diplopia ENT: Denies: Rhinorrhea, Sore throat Cardiovascular: Denies: Chest pain, Palpitations Respiratory: Denies: Dyspnea, Cough, Dyspnea on exertion Gastrointestinal: Reports: Abdominal pain. Denies: Nausea, Vomiting, Diarrhea, Melena, Hematochezia Genitourinary: Denies: Dysuria, Hematuria, Frequency Musculoskeletal: Reports: Back pain. Denies: Extremity Pain Skin: Denies: Rash, Wounds Neurological: Denies: Headache, Weakness, Numbness Physical Exam Vital Signs/Narrative: Vital Signs Temp Pulse Resp BP Pulse Ox 02/15/20 07:54 97.4 F L 93 19 H 181/104 H 97 Inital Vital Signs reviewed: Yes General: Well nourished, Well developed, No Acute Distress Head: Normocephalic, Atraumatic Eyes: Perrl, EOMI ENT: Moist mucous membranes, No rhinorrhea Neck: Supple, Nontender Cardiovascular: Regular rate, Regular rhythm, No murmurs Respiratory: No distress, CTA bilaterally, Chest nontender Abdomen: Soft, Nondistended, Normal bowel sounds, - - TTP in the bilateral upper quadrants. No rebound or rigidity. Back: Nontender, Normal Inspection Extremities: Nontender, No edema Skin: Normal color, No rash Neurological: Alert, Oriented x3, Cranial nerves II-XII grossly intact, Normal Strength, Normal Sensation Psychological: Normal affect, Normal Mood Diagnostic/Tx/Re-eval Laboratory Data 02/15/20 02/15/20 02/15/20 08:20 08:20 08:55 WBC 7.7 RBC 3.84 L Hgb 11.5 L Hct 34.9 L MCV 90.9 MCH 29.9 MCHC 33.0 RDW Std Deviation 41.4 RDW Coeff of Mat 12.9 Plt Count 288 MPV 9.4 Immature Gran % (Auto) 0.400 Neut % (Auto) 67.7 Lymph % (Auto) 24.0 [place] % (Auto) 6.6 Eos % (Auto) 1.0 Baso % (Auto) 0.3 Absolute Neuts (auto) 5.2 Absolute Lymphs (auto) 1.84 Nucleated RBC % 0 Sodium 141 Potassium 3.8 Chloride 110 H Carbon Dioxide 25.0 Anion Gap 6 BUN 20 H Creatinine 0.78 Estim Creat Clear Calc 87.13 Est GFR (MDRD) Af Amer 106 Est GFR (MDRD) Non-Af 87 BUN/Creatinine Ratio 25.7 H Glucose 122 H Calcium 8.7 Total Bilirubin 0.40 AST 16 ALT 29 Alkaline Phosphatase 83 Total Protein 7.3 Albumin 3.3 Globulin 4.0 Albumin/Globulin Ratio 0.8 L Lipase 62 L Urine Color Yellow Urine Clarity Sl. Cloudy Urine pH 6.0 Ur Specific [place] 1.025 Urine Protein 15 H Urine Glucose (UA) Normal Urine Ketones 5 H Urine Occult Blood Negative Urine Nitrite Negative Urine Bilirubin Negative Urine Urobilinogen Normal Ur Leukocyte Esterase 500 H Urine RBC 0 SEEN Urine WBC 25-50 SEEN Ur Squamous Epith Cells 5-10 SEEN Urine Bacteria 2+ Urine Mucus 1+ Urine Test Negative - Medical Decision Making Appears well nontoxic. Vital signs within normal limits. Lab work within normal limits. Evidence of UTI on urinalysis. Urine sent for culture. Given the patient's back pain she will be treated as pyelonephritis. Patient be given 4 times daily Keflex for the next 7 days. Asked to return for new or worsening symptoms. Patient also be written naproxen. Discharged home in stable condition. Impression: 1. Early pyelonephritis ED Disposition - Plan for ED Patient: Disposition: Home or Assisted Living Instructions: ED Pyelonephritis Female Adult Prescriptions: Cephalexin [Keflex] 500 mg PO Q6 #28 cap Prescription Printed Naproxen [Naprosyn] 500 mg PO BID #14 tab Prescription Printed Referrals: Dewayne Murillo MD [Primary Care Provider] -
[2020-02-15] MEDS: 0.9% Normal Saline 1,000 ML 1000 ML IV (08:18)
[2020-02-15] MEDS: Ketorolac 15 MG/ML Vial IV (08:25)
[2020-02-15 08:27] VITALS: BP 181/104; PULSE 93; RESP 19; TEMP 36.3; O2SAT 97
[2020-02-15 08:28] LABS: Absolute Lymphocyte Count 1.84 X10^3/uL (0.83-4.51); Absolute Neutrophil Count 5.2 X10^3/uL (2.0-7.7); Basophil# 0.02 X10^3/uL; Basophil% 0.3 % (0-1); Eosinophil# 0.08 X10^3/uL; Hematocrit 34.9 % (37-47); Hemoglobin 11.5 g/dL (12.0-15.0); Lymphocyte # 1.84 X10^3/ul (4.0); Mean Corpuscular Hgb 29.9 pg (27.0-32.0); Mean Corpuscular Volume 90.9 fL (81-99); Mean Platelet Vol. 9.4 fl (6.2-12.0); Monocyte# 0.51 X10^3/uL; Monocyte% 6.6 % (0-10); NRBC Flagged by Analyzer 0 % (0-5); Neutrophil # 5.19 X10^3/uL (2.7-7.7); Neutrophil % 67.7 % (47-70); Platelet Count 288 K/mm3 (150-450); RBC Distribution Width CV 12.9 % (11.6-14.6); RBC Distribution Width SD 41.4 fl (35.1-43.9); Red Blood Count 3.84 M/mm3 (4.2-5.4); White Blood Count 7.7 K/mm3 (4.4-11.0)
[2020-02-15 08:42] LABS: ALB/GLOB Ratio 0.8 RATIO (0.9-2.4); AST(SGOT) 16 U/L (15-37); Alanine Aminotransfer ALT/SGPT 29 U/L (13-56); Albumin, Serum 3.3 g/dL (3.2-5.0); Alkaline Phosphatase 83 U/L (45-117); Anion Gap 6 (5-15); BUN 20 mg/dL (7-18); BUN/Creat Ratio 25.7 RATIO (10-20); Calcium,Total 8.7 mg/dL (8.5-10.1); Chloride 110 mmol/L (98-107); Creatinine, Serum 0.78 mg/dL (0.55-1.02); EST Glomerular Filtration Rate 87 mL/min (>60); Est Glom Filt Rate - Afr Amer 106 mL/min (>60); Estimated Creatinine Clearance 87.13 ml/min; Glucose 122 mg/dL (74-106); Lipase 62 U/L (73-393); Potassium 3.8 mmol/L (3.5-5.1); Protein, Total 7.3 g/dL (6.4-8.2); Sodium Level 141 mmol/L (136-145)
[2020-02-15 09:01] LABS: Red Blood Cells-Urine 0 SEEN /hpf (0-5)
[2020-02-15 09:05] LABS: Color, Urine Yellow (Yellow); Glucose, Dipstick Normal (Normal); Ketone-Dipstick 5 mg/dl (Negative); Leukocyte Esterase-Dipstick 500 /ul (Negative); Nitrite-Dipstick Negative (Negative); Occult Blood-Urine Negative /ul (Negative); Protein-Dipstick 15 mg/dl (Negative); Specific Gravity, Urine 1.025 (1.002-1.030); Urine Bilirubin Dipstick Negative (Negative); Urine Clarity Sl. Cloudy (Clear); Urine Urobilinogen Normal (Normal)
[2020-02-15 09:15] LABS: Bacteria 2+ /hpf (None Seen); Internal QC Validated? YES +Cl - CLEAR BKGD; Mucous, Urine 1+ /hpf (<or=2+); Pregnancy, Urine Negative Negative; Squamous Epithelial Cells - UA 5-10 SEEN /hpf (5-10); White Blood Cells 25-50 SEEN /hpf (0-5)
[2020-02-15 09:53] VITALS: BP 152/102; PULSE 74; RESP 18; O2SAT 99
== END 2020-02-15 09:55 | disposition home or self-care (01) ==
PROVIDERS: Emergency Provider Emergency Medicine; PCP Family Medicine
DX: N12 Tubulo-interstitial nephritis, not specified as acute or chronic (principal); I10 Essential (primary) hypertension
CPT/HCPCS: 80053; 81001; 81025; 83690; 85025; 87086; 87088; 96361; 96374; 99282; J7030

== ENCOUNTER 2020-02-20 16:56 | Emergency (ER) | payer MEDICAID, SELFPAY ==
[2020-02-20 16:58] VITALS: BP 165/106; PULSE 88; RESP 15; TEMP 36.3; O2SAT 99; BMI 45.7
--- NOTE | 2020-02-20 17:18 | CT_ITS ---
STUDY: CT ABDOMEN AND PELVIS WITHOUT CONTRAST REASON FOR EXAM: Female, 39 years old. FLANK PAIN RADIATION DOSAGE (If Supplied By Facility): CTDIvol = ( 14.77 ) mGy, DLP = ( 765.18 ) mGycm TECHNIQUE: Transaxial images were obtained from the dome of the diaphragm to the symphysis pubis without oral contrast, and without intravenous contrast. Sagittal and coronal images were reconstructed. Individualized dose optimization techniques were used for this CT. COMPARISON: 12/06/2018 FINDINGS: The visualized lung bases are unremarkable. The visualized portions of the heart are within normal limits. There is decreased attenuation of the liver consistent with steatosis. Normal gallbladder and extrahepatic biliary system. Normal spleen. Normal pancreas. Normal bilateral adrenal glands. Normal right kidney. Normal left kidney. Normal visualized stomach. Normal small intestine. Normal colon. The appendix is visualized and appears normal. Normal abdominal aorta. Normal inferior vena cava. Normal retroperitoneum. Normal urinary bladder. Fallopian tube clips. Normal abdominal wall. Normal osseous structures. CT/Abdomen/Pelvis without Cont IMPRESSION: No evidence of appendicitis, acute intestinal pathology, or acute obstructive uropathy. Fatty liver. Electronically Signed: Dewayne Jay MD at 19:05 EDT Tel , Service support ,
--- NOTE | 2020-02-20 17:30 | ED.DCSUM_ITS ---
- ER Visit Summary Date of Service: 02/20/20 Chief Complaint: Bilateral flank pain History of Present Illness: The patient is a 39 F who presents with bilateral flank pain that is been getting worse over the past 6 days. Patient states it is gradually getting worse. Patient was seen here 5 days ago and was diagnosed with a urinary tract infection. Patient was given a prescription for Keflex. Urine culture grew mixed gram-positive bacteria. Patient admits to nausea but denies any vomiting. Patient still complains of dysuria and hematuria. Patient describes her flank pain as aching and pressure. Patient states nothing makes it better or worse. Patient states she has been drinking plenty of fluids. Patient states she has been drinking cranberry juice. Patient states she has been taking her antibiotic as prescribed. Physical Examination: Vital signs are stable. Patient is afebrile. Patient is in no acute distress. Oral mucosa is pink and moist. Neck is supple. Trachea is midline. There is no JVD noted. Heart was regular rate and rhythm. Lungs are clear and equal bilaterally. Abdomen is soft. Bowel sounds are normal. There is mild left lower quadrant tenderness. There is no rebound or guarding noted. There is mild CVA tenderness noted bilaterally. Skin is warm dry. Cranial nerves II through XII are intact. There are no focal motor or sensory deficits noted. Extremities are intact. There is no calf tenderness or edema. Test Results: CBC and comprehensive metabolic profile were within normal limits. Urinalysis does not show any evidence of urinary tract infection. Serum hCG was negative. CT scan of the abdomen and pelvis was obtained. There is no acute process noted. This was interpreted by the radiologist and reviewed by myself. Emergency Department Course and Treatment: Patient was given a dose of Toradol here. Patient felt better on reevaluation. Patient was advised of her findings. Patient was instructed to continue her Keflex as prescribed until gone. Patient was instructed to follow-up with her primary care physician in 5 to 7 days. Patient understood and was agreeable with the plan. All questions were answered. Disposition: Discharge home Impression: Bilateral flank pain This note was generated with [employer] dictation software. It may contain incorrect words, spelling, and punctuation that were not noted in review of the chart prior to signing ED Disposition - Plan for ED Patient: Disposition: Home or Assisted Living Diagnosis: Bilateral flank pain Instructions: ED Flank Pain Uncertain Cause Referrals: Dewayne Murillo MD [Primary Care Provider] - 5-7 Days
[2020-02-20] MEDS: 0.9% Normal Saline 1,000 ML 1000 ML IV (17:39)
[2020-02-20] MEDS: Ketorolac 30 MG/ML Syringe IV (17:40)
[2020-02-20 18:04] LABS: Mucous, Urine 0 SEEN /hpf (<or=2+); Red Blood Cells-Urine 0 SEEN /hpf (0-5)
[2020-02-20 18:10] LABS: Absolute Lymphocyte Count 2.39 X10^3/uL (0.83-4.51); Absolute Neutrophil Count 5.8 X10^3/uL (2.0-7.7); Basophil# 0.03 X10^3/uL; Basophil% 0.3 % (0-1); Eosinophil# 0.11 X10^3/uL; Eosinophils% 1.2 % (0-5); Hematocrit 34.6 % (37-47); Hemoglobin 11.2 g/dL (12.0-15.0); Lymphocyte # 2.39 X10^3/ul (4.0); Lymphocyte % 26.9 % (19-41); Mean Corp Hgb Conc 32.4 g/dL (32-36); Mean Corpuscular Hgb 29.4 pg (27.0-32.0); Mean Corpuscular Volume 90.8 fL (81-99); Mean Platelet Vol. 9.6 fl (6.2-12.0); Monocyte# 0.53 X10^3/uL; NRBC Flagged by Analyzer 0 % (0-5); Neutrophil % 65.3 % (47-70); Platelet Count 306 K/mm3 (150-450); RBC Distribution Width CV 12.7 % (11.6-14.6); RBC Distribution Width SD 41.4 fl (35.1-43.9); Red Blood Count 3.81 M/mm3 (4.2-5.4); White Blood Count 8.9 K/mm3 (4.4-11.0)
[2020-02-20 18:14] LABS: Color, Urine Yellow (Yellow); Glucose, Dipstick Normal (Normal); Ketone-Dipstick 5 mg/dl (Negative); Leukocyte Esterase-Dipstick 100 /ul (Negative); Nitrite-Dipstick Negative (Negative); Occult Blood-Urine 10 /ul (Negative); Protein-Dipstick Negative (Negative); Urine Bilirubin Dipstick Negative (Negative); Urine Clarity Cloudy (Clear); Urine Urobilinogen Normal (Normal)
[2020-02-20 18:15] LABS: Internal QC Validated? YES +Cl - CLEAR BKGD; Pregnancy, Urine Negative Negative
[2020-02-20 18:24] LABS: Bacteria RARE /hpf (None Seen); Squamous Epithelial Cells - UA 0-5 SEEN /hpf (5-10); White Blood Cells 0-5 SEEN /hpf (0-5)
[2020-02-20 18:27] LABS: ALB/GLOB Ratio 0.9 RATIO (0.9-2.4); AST(SGOT) 11 U/L (15-37); Alanine Aminotransfer ALT/SGPT 25 U/L (13-56); Albumin, Serum 3.6 g/dL (3.2-5.0); Alkaline Phosphatase 103 U/L (45-117); Anion Gap 6 (5-15); BUN 25 mg/dL (7-18); BUN/Creat Ratio 33.3 RATIO (10-20); Calcium,Total 8.8 mg/dL (8.5-10.1); Chloride 109 mmol/L (98-107); Creatinine, Serum 0.75 mg/dL (0.55-1.02); EST Glomerular Filtration Rate 91 mL/min (>60); Est Glom Filt Rate - Afr Amer 110 mL/min (>60); Estimated Creatinine Clearance 90.62 ml/min; Globulin 3.8 g/dL (2.2-4.2); Glucose 117 mg/dL (74-106); Potassium 3.5 mmol/L (3.5-5.1); Protein, Total 7.4 g/dL (6.4-8.2); Sodium Level 140 mmol/L (136-145)
[2020-02-20 19:22] VITALS: BP 173/104; PULSE 83; RESP 15; O2SAT 100
== END 2020-02-20 20:06 | disposition home or self-care (01) ==
PROVIDERS: Emergency Provider Emergency Medicine; PCP Family Medicine
DX: R10.32 Left lower quadrant pain (principal); R10.31 Right lower quadrant pain; I10 Essential (primary) hypertension; G43.909 Migraine, unspecified, not intractable, without status migrainosus
CPT/HCPCS: 74176; 80053; 81001; 81025; 85025; 96361; 96374; 99282; J7030; A4216

== ENCOUNTER 2020-05-15 12:03 | Outpatient (RCR) | payer BC, MEDICAID, SELFPAY | END 2020-05-15 23:59 | LOC: IMMUN 12:03 | PROVIDERS: PCP Physician Assistant; Visit Provider Family Medicine | DX: Z23 Encounter for immunization (principal) | CPT/HCPCS: 0011A; 0012A; 91301 ==

== ENCOUNTER → 2020-08-08 17:35 | Outpatient (CLI) | payer BC, MEDICAID, SELFPAY | PROVIDERS: PCP Physician Assistant | DX: L50.9 Urticaria, unspecified (principal) | CPT/HCPCS: 83520 ==

== ENCOUNTER 2020-12-03 03:18 | Emergency (ER) | payer BC, MEDICAID, SELFPAY ==
[2020-12-03 03:18] VITALS: BP 190/95; PULSE 79; RESP 18; TEMP 36.2; O2SAT 99; BMI 46.6
--- NOTE | 2020-12-03 03:30 | RAD_ITS ---
STUDY: X-RAY - RIGHT SHOULDER REASON FOR EXAM: Female, 40 years old. Pain TECHNIQUE: 4 view(s) of the shoulder. COMPARISON: None. FINDINGS: Normal glenohumeral articulation. Normal acromioclavicular joint. Normal acromion. Normal humeral head and visualized proximal humerus. The soft tissue structures are unremarkable. Normal visualized pulmonary apex. RAD/Shoulder min 2 Views IMPRESSION: Normal x-ray examination of the shoulder. Electronically Signed: Shameka Little MD at 5:09 EDT Tel , Service support ,
--- NOTE | 2020-12-03 03:46 | EX.ED.UPPERE ---
HPI History of Present Illness Chief Complaint: Upper Extremity Injury Informant: patient Onset/Context/Timing Onset: Days (7 days) Context: Gradual Onset Timing: Waxes and wanes Quality of Pain: Stabbing and Throbbing Current Severity: Moderate Maximum Severity: Moderate Narrative Narrative: Patient presents secondary to right shoulder pain. For the last week she has had aching sensation in the posterior right shoulder with occasional sharp shooting pain down her right arm to the elbow. She has tried multiple [id number] remedies without improvement. Tonight she was unable to sleep secondary to pain. She denies any specific injury. She is right-hand dominant. No paresthesias. [facility] Medical History Gestational diabetes Preeclampsia Home Medications sumatriptan succinate 25 mg PO PRN PRN 10/28/19 [History Last Taken Unknown] lisinopril-hydrochlorothiazide 1 ea PO DAILY #30 tab 10/29/19 [Rx Last Taken Unknown] cyclobenzaprine 10 mg PO BID PRN #10 tab 12/03/20 [Rx Last Taken Unknown] hydrocodone-acetaminophen 1 tab PO Q6H PRN 3 Days #10 tab 12/03/20 [Rx Last Taken Unknown] naproxen [Naprosyn] 500 mg PO BID PRN #20 tab 12/03/20 [Rx Last Taken Unknown] prednisone 40 mg PO DAILY #10 tab 12/03/20 [Rx Last Taken Unknown] Allergy/AdvReac Type Severity Reaction Status Date / Time ciprofloxacin [From Cipro] Allergy Hives Verified 12/03/20 03:22 ciprofloxacin HCl Allergy Hives Verified 12/03/20 03:22 [From Cipro] Surgical History History of unilateral fallopian tube excision Social History Smoking Status: Never smoker ROS ROS ED Constitutional Constitutional ED: Denies chills or fever(s) Eyes Eyes: Denies change in vision ENT ENT ED: Denies sore throat Cardiovascular Cardiovascular: Denies chest pain Respiratory/Chest Respiratory/Chest: Denies cough or dyspnea Gastrointestinal Gastrointestinal: Denies abdominal pain, diarrhea, nausea or vomiting Genitourinary Genitourinary ED: Denies dysuria Musculoskeletal Musculoskeletal: Reports arthralgias and back pain Integumentary Denies rash Neurologic Neurologic: Denies headache(s) or weakness Psychiatric Psychiatric: Denies anxiety or depression Allergic/Immunologic Allergic/Immunologic ED: Denies urticaria EXAM Physical Exam Const Vital Signs: 12/03/20 03:18 Temperature 97.2 F L Temperature Source Temporal Pulse Rate 79 Respiratory Rate 18 Blood Pressure 190/95 H Blood Pressure Mean 126 Pulse Ox 99 Oxygen Delivery Method Room Air Positive well nourished and well developed General Appearance ED: well developed HEENT Reports normocephalic and head/scalp atraumatic Eyes PERRL and EOMs intact bilaterally Neck supple Chest Wall inspection of chest normal and palpation of chest normal Resp normal respiratory effort and clear to auscultation bilaterally Cardio regular rate and regular rhythm GI normal to inspection, nondistended, normoactive bowel sounds Palpation: soft Back/Spine Back/Spine Narrative: Mild tenderness over the right thoracic paraspinal muscles. Extremity Extremity Narrative: Mild muscular tenderness over the scapula. Full range of motion at the shoulder. Strong distal pulses, normal strength and sensation. Patient does have significantly increased pain when trying to place her hand on her head of her hand behind her back. Neuro oriented x3 Sensorium / Orientation: alert Psych mental status grossly normal Skin no rashes or lesions noted Lesions: no lesions Rashes: no rashes MDM MDM MDM Narrative Medical decision making narrative: Right shoulder x-rays are obtained. Treatment and Re-Evaluation Comments:: Per my interpretation right shoulder x-rays are normal. Patient be given prescriptions for naproxen, [place], Flexeril, and prednisone. She is referred to orthopedics for follow-up. Discharge Plan Triage Chief Complaint: Upper Extremity Injury ED Provider: Violet Salas Dx/Rx/DC Orders Clinical Impression: Right shoulder strain, Radiculopathy Instructions: ED Radiculopathy, Cervical, ED Shoulder Sprain Prescriptions: New naproxen [Naprosyn] 500 mg tablet 500 mg PO BID PRN (Reason: pain) Qty: 20 RF: 0 hydrocodone-acetaminophen 5-325 mg tablet 1 tab PO Q6H PRN (Reason: pain) 3 Days Qty: 10 RF: 0 prednisone 20 mg tablet 40 mg PO DAILY Qty: 10 RF: 0 cyclobenzaprine 10 mg tablet 10 mg PO BID PRN (Reason: muscle spasm) Qty: 10 RF: 0 No Action sumatriptan succinate 25 MG tablet 25 mg PO PRN PRN (Reason: migraines) RF: 0 lisinopril-hydrochlorothiazide 1 EACH tablet 1 ea PO DAILY Qty: 30 RF: 0 Primary Care Provider: Milly Finn Referrals: Hayden Perez DO [STAFF PHYSICIAN] - As soon as possible Milly Finn, AMERICO [Primary Care Provider] - Disposition Disposition: Home, Self Care
== END 2020-12-03 04:32 | disposition home or self-care (01) ==
LOC: ED 03:53
PROVIDERS: Emergency Provider Emergency Medicine; PCP Physician Assistant
DX: S43.401A Unspecified sprain of right shoulder joint, initial encounter (principal); X58.XXXA Exposure to other specified factors, initial encounter; Y93.9 Activity, unspecified; Y92.9 Unspecified place or not applicable; M54.10 Radiculopathy, site unspecified
CPT/HCPCS: 73030; 99282

== ENCOUNTER 2021-01-05 13:00 | Outpatient (RCR) | payer BC, MEDICAID, SELFPAY ==
--- NOTE | 2020-12-31 17:13 | HP.PTEVAL ---
Patient's Visit Information BRANDON BRISCOE is a 40 year old F referred to Physical Therapy by Dr. Hayden Perez DO with a diagnosis of Shoulder/ trap strain with cervical radic. Date of Evaluation: 12/31/20 Physical Therapist: ZA Brower - Visit Plan Frequency: 2x /Week Duration: 4 Weeks Plan: Decided that pt was not feeling well due to current migraine and wished to complete repeated movement testing next visit. Discussed calling her Dr and letting Dr know that her R arm and had are not constantly tingling when before it would come and go. 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 2X/ week for 4 weeks for postural exercises, centralization of symptoms, UE strengthening with HEP and modalities as needed. - Subjective Pt reported 4-5 weeks ago she had severe pain in R arm and they x-rayed everything and it was fine. Pain was in R shoulder and down to the elbow and into the chest wall. Went to ortho and they x-rayed her neck and start of DDD. She finished meds and started more steroids. Her whole R arm is falling asleep and whole R arm is tingling. Now her entire R arm is N&T and now she is getting more migranes and her neck is killing her. She was tested for COVID and it was negative. She has no further appointment with the Dr. She can not get comfortable in bed. She could not drive to [facility] and could not hold arm on steering wheel. They have not done an MRI yet. At night she can not sleep because of the pain in her arm. Pt is R handed. 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 Pt feels like her head hurts so bad that she might throw up. - Pain R shoulder Pain Intensity (Out of 10): 0 Neck pain Pain Intensity (Out of 10): 7 - Objective R handed. R 51# and L 72#. C-spine AROM: flexion 100%, ext 25%, Rot B 75%, SB B 100%. Pt has full B UE AROM. MMT: R shoulder flex 3+/5 and L 4-/5, R shoulder abd 4-/5 and L shoulder abd 4-/5, B ER 4-/5, B IR 4-/5. Posture: has increased flexion of the c-spine and rounded shoulders. Palpation: pt had no tenderness along the shoulder blade region of along the bicep groove. Attempted seated chin tucks and pt had instant pain in her head but stated that she was not sure if that was normal due to the migraine that she was currently experiencing. Attempted supine chin tucks and pt had increase neck and shoulder blade pain but stated it was really painful. - Balance/Special Test Scores Quick DASH Score: 43.1800 - Goals Goal 1:: I HEP Goal Time Frame: 4-6 Weeks Goal 2:: Decrease R arm pain by50% Goal Time Frame: 4-6 Weeks Goal 3:: Increase posture to sit with upright posture during treatment sessions Goal Time Frame: 4-6 Weeks Goal 4:: Increase UE strength by 1/2 muscle grade (at time of the eval: MMT: R shoulder flex 3+/5 and L 4-/5, R shoulder abd 4-/5 and L shoulder abd 4-/5, B ER 4-/5, B IR 4-/5). Goal Time Frame: 4-6 Weeks Goal 5:: Increase strength in R labor utilization superintendent strength (at time of the eval: R handed. R 51# and L 72#) Goal Time Frame: 4-6 Weeks - Rehabilitation Potential Rehabilitation Potential: Good - Anticipated Interventions Patient/Client Instruction: Educate patient on: Condition, Plan of Care For the Purpose of:: To decrease pain, To increase ROM, To improve nutrient delivery to tissue, To improve muscle performance and motor function, To improve ability to perform ADL's, To increase tolerance to activity/condition/position, To improve performance and independence with ADL's, To improve health of tissue, To decrease soft tissue restriction, To increase flexibility/ROM Therapeutic Exercise to Include: Strength training, Postural training, Flexibilty training, Neuromotor development, Passive ROM, Active ROM, Scapular Strength/Stabilization For the Purpose of:: To decrease pain, To increase ROM, To improve nutrient delivery to tissue, To improve muscle performance and motor function, To improve ability to perform ADL's, To increase tolerance to activity/condition/position, To improve performance and independence with ADL's, To decrease level of supervision to perform tasks, To improve health of tissue, To decrease soft tissue restriction, To increase flexibility/ROM Manual Therapy Techniques to Include: Passive ROM, Soft tissue mobilization For the Purpose of:: To decrease pain, To increase ROM, To improve nutrient delivery to tissue, To improve muscle performance and motor function, To improve ability to perform ADL's, To increase tolerance to activity/condition/position, To improve health of tissue, To decrease soft tissue restriction, To increase flexibility/ROM IF ES: Yes Cryotherapy (ice pack, ice massage): Yes Thermo therapy (hot pack): Yes Ultrasound (thermal/non thermal): Yes For the Purpose of:: To decrease pain, To decrease swelling/inflammation, To improve nutrient delivery to tissue Thank you for the opportunity to evaluate your patient. For Medicare and Medicare HMO plans, please review the plan of care and approve it. It will need to be FAXED BACK to us at [phone] for Medicare purposes. For Medicare only, by signing this I certify the plan of care. Please let me know if there are questions or concerns regarding this plan of care. Physician Signature: Date:
--- NOTE | 2021-04-03 11:25 | HP.PT.NRP ---
BRANDON BRISCOE was seen in my office for initial evaluation on 12/31/20. The following Plan of Care was established for this patient: Initial Frequency: 2x /Week Initial Duration: 4 Weeks Patient/Client Instruction: Educate patient on: Condition, Plan of Care For the Purpose of:: To decrease pain, To increase ROM, To improve nutrient delivery to tissue, To improve muscle performance and motor function, To improve ability to perform ADL's, To increase tolerance to activity/condition/position, To improve performance and independence with ADL's, To improve health of tissue, To decrease soft tissue restriction, To increase flexibility/ROM Therapeutic Exercise to Include: Strength training, Postural training, Flexibilty training, Neuromotor development, Passive ROM, Active ROM, Scapular Strength/Stabilization For the Purpose of:: To decrease pain, To increase ROM, To improve nutrient delivery to tissue, To improve muscle performance and motor function, To improve ability to perform ADL's, To increase tolerance to activity/condition/position, To improve performance and independence with ADL's, To decrease level of supervision to perform tasks, To improve health of tissue, To decrease soft tissue restriction, To increase flexibility/ROM Manual Therapy Techniques to Include: Passive ROM, Soft tissue mobilization For the Purpose of:: To decrease pain, To increase ROM, To improve nutrient delivery to tissue, To improve muscle performance and motor function, To improve ability to perform ADL's, To increase tolerance to activity/condition/position, To improve health of tissue, To decrease soft tissue restriction, To increase flexibility/ROM IF ES: Yes Cryotherapy (ice pack, ice massage): Yes Thermo therapy (hot pack): Yes Ultrasound (thermal/non thermal): Yes For the Purpose of:: To decrease pain, To decrease swelling/inflammation, To improve nutrient delivery to tissue This patient was last seen in our office 01/05/21. Pertinent comments regarding their Physical therapy will appear below: DC PT back to physician At this point I will be discontinuing this patient from physical therapy. I would be happy to see this patient again in the future if found appropriate by the physician. Thank you! Mercedez Busby, MPT Balance/Gait/Functional tests - Balance/Special Test Scores Quick DASH Score: [phone]
== END 2021-01-05 19:00 | disposition home or self-care (01) ==
LOC: PT 13:00
PROVIDERS: PCP Physician Assistant; Referring Provider Orthopaedic Surgery; Visit Provider Orthopaedic Surgery
DX: S46.819D Strain of other muscles, fascia and tendons at shoulder and upper arm level, unspecified arm, subsequent encounter (principal); M54.12 Radiculopathy, cervical region
CPT/HCPCS: 97014; 97161; 97530; G0283

== ENCOUNTER → 2021-01-21 07:55 | Outpatient (CLI) | payer BC, MEDICAID, SELFPAY ==
--- NOTE | 2021-01-21 07:56 | MRI_ITS ---
STUDY: MRI CERVICAL SPINE WITHOUT CONTRAST REASON FOR EXAM: Female, 40 years old. pain, right arm pain/tingling, neck pain x 2 months TECHNIQUE: Standardized fat and water weighted pulse sequences were obtained in the sagittal and axial planes. COMPARISON: X-ray 12/17/2020 FINDINGS: Normal foramen magnum and brainstem-cervical cord junction. Normal craniovertebral junction. Normal anterior atlantoaxial articulation. Normal odontoid process. There is reversal of the normal cervical lordosis. Normal vertebral bodies and posterior osseous elements. C2-3: Normal endplates. Normal disc height, signal and morphology. Normal central canal and intervertebral neural foramina. C3-4: Moderate broad disc osteophyte complex produces moderate spinal stenosis with abutment of the central spinal cord and mild bilateral neural foraminal stenosis. C4-5: Normal endplates. Normal disc height, signal and morphology. Normal central canal and intervertebral neural foramina. C5-6: Moderate broad disc osteophyte complex asymmetric to the right produces moderate spinal stenosis with abutment of the right hemicord and mild bilateral neural foraminal stenosis. C6-7: Moderate broad disc osteophyte complex asymmetric to the right produces moderate spinal stenosis with effacement of the right hemicord and moderate right neural foraminal stenosis. C7-T1: Normal endplates. Normal disc height, signal and morphology. Normal central canal and intervertebral neural foramina. Normal cervical cord. Normal visualized soft tissue structures. MRI/Spine Cervical (Routine) IMPRESSION: Degenerative disc disease with reversal of normal lordotic curvature. Electronically Signed: Everton Corrales MD at 9:43 EDT Tel , Service support ,
== END ==
PROVIDERS: PCP Physician Assistant; Referring Provider Orthopaedic Surgery; Visit Provider Orthopaedic Surgery
DX: M54.12 Radiculopathy, cervical region (principal)
CPT/HCPCS: 72141

== ENCOUNTER 2021-03-24 11:24 | Observation (INO) | payer BC, MEDICAID, SELFPAY ==
--- NOTE | 2021-03-12 13:37 | EKG12_ITS ---
Test Reason : PREOP Blood Pressure : / mmHG Vent. Rate : 081 BPM Atrial Rate : 081 BPM P-R Int : 154 ms QRS Dur : 098 ms QT Int : 360 ms P-R-T Axes : 063 015 045 degrees QTc Int : 418 ms Normal sinus rhythm Normal ECG Confirmed by JON GÓMEZ, ERIK ([id number]), sports editor GHISLAINE WYNNE ([id number]) on 03/13/2021 1:50:05 P M Referred By: Phong Ramos Confirmed By:LIDIA WEBB MD
[2021-03-12 14:13] LABS: Absolute Lymphocyte Count 2.37 X10^3/uL (0.83-4.51); Absolute Neutrophil Count 4.7 X10^3/uL (2.0-7.7); Basophil# 0.03 X10^3/uL; Basophil% 0.4 % (0-1); Eosinophil# 0.12 X10^3/uL; Eosinophils% 1.5 % (0-5); Hemoglobin 12.1 g/dL (12.0-15.0); Lymphocyte # 2.37 X10^3/ul (0.83-4.51); Lymphocyte % 30.1 % (19-41); Mean Corp Hgb Conc 34.6 g/dL (32-36); Mean Corpuscular Hgb 30.2 pg (27.0-32.0); Mean Corpuscular Volume 87.3 fL (81-99); Mean Platelet Vol. 9.7 fl (6.2-12.0); Monocyte# 0.57 X10^3/uL; Monocyte% 7.2 % (0-10); NRBC Flagged by Analyzer 0 % (0-5); Neutrophil # 4.74 X10^3/uL (2.7-7.7); Neutrophil % 60.3 % (47-70); Platelet Count 306 K/mm3 (150-450); RBC Distribution Width SD 40.7 fl (35.1-43.9); Red Blood Count 4.01 M/mm3 (4.2-5.4); White Blood Count 7.9 K/mm3 (4.4-11.0)
[2021-03-12 14:24] LABS: Partial Thromboplast Time 28.4 Seconds (24.1-36.2)
[2021-03-12 14:35] LABS: Anion Gap 6 (5-15); BUN 16 mg/dL (7-18); BUN/Creat Ratio 22.6 RATIO (10-20); Calcium,Total 8.9 mg/dL (8.5-10.1); Chloride 109 mmol/L (98-107); Creatinine, Serum 0.71 mg/dL (0.55-1.02); EST Glomerular Filtration Rate 97 mL/min (>60); Est Glom Filt Rate - Afr Amer 117 mL/min (>60); Glucose 113 mg/dL (74-106); Potassium 3.5 mmol/L (3.5-5.1); Sodium Level 139 mmol/L (136-145)
[2021-03-12 15:09] LABS: HIV - WCH Non-Reactive (Nonreactive); Hepatitis B Surface Antibody Reactive; Hepatitis C Antibody Non-Reactive (Nonreactive)
[2021-03-14 14:50] LABS: Hepatitis A AB, Total Negative (Negative)
--- NOTE | 2021-03-23 10:54 | PCM.HP.BLA ---
History and Physical Date of Admission: 03/24/21 [facility] [id number] [phone] OFFICE VISITDate of Service: 02/02/21 MR#:[id number]:[id number]: GRACIELA BRISCOE #:[id number]:[id number] Provider:Dr. Phong Ramos, DOAge/Sex: 40/F Location:Andressa:Signed Intake Intake Visit Reasons: Cervical disc degeneration Allergies ciprofloxacin [From Cipro] Allergy (Verified 02/02/21 14:03) Hives ciprofloxacin HCl [From Cipro] Allergy (Verified 02/02/21 14:03) Hives Medications lisinopril-hydrochlorothiazide 1 ea PO DAILY #30 tab 10/29/19 [Rx Confirmed 02/02/21] sumatriptan succinate 25 mg tablet 25 mg PO ONCE 01/07/21 [History Confirmed 02/02/21] tizanidine 2 mg capsule 2 - 4 mg PO Q8H PRN #30 cap 01/28/21 [Rx Confirmed 02/02/21] PFSH Medical History Gestational diabetes Preeclampsia Surgical History History of unilateral fallopian tube excision Family History (Updated 02/02/21 @ 14:03 by Riri Burgess) Grandfather Colon cancer Mother Uterine cancer Grandmother COPD (chronic obstructive pulmonary disease) Kidney disease Emphysema lung CHF (congestive heart failure) Social History (Updated 02/02/21 @ 14:04 by Riri Burgess) adopted: Yes (patient grew up in foster care) household members: spouse and children housing: house current occupational status: employed 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 pets and animals: Yes pets and animals: dog(s), bird(s), fish and turtle(s) Smoking Status: Never smoker alcohol intake: current alcohol intake frequency: holidays/special occasions only substance use type: does not use what type of physical activity do you participate in: none seatbelt use: always do you feel safe at home: Yes HPI Degeneration of cervical intervertebral disc Details: Parts of this documentation were recorded by a scribe, this documentation accurately reflects the service provided and the decisions made by me, Dr. Phong Ramos, 02/02/21 [id number]. GRACIELA BRISCOE is a 40 year old F here today to establish as a new patient for cervical spine. Referred by Dr. Perez. Onset: November 17, 2020. Denies any accident, injury, injections and surgeries. Pain has been worsening since it began. Pain came on gradually. Pain began with her cervical spine that radiates to her right shoulder blade, to her right shoulder and right arm to her digits and wraps around to her axilla. Reports numbness, stiffness and tingling. Patient has completed physical therapy, and was worsening with physical therapy. Patient had a cervical spine MRI on: 01/21/21 as well as a cervical spine x-ray on: 12/17/20. Patient has tried the following conservative treatments for six weeks or greater: RICE, Tylenol, tizanidine, OTC NSAIDs, home exercises provided by a provider, oral corticosteroids, narcotic and non-narcotic analgesic medication(s), PT/OT, uses a cervical pillow qhs with ice packs. Patient has found no relief and would like to further investigate their s/s. Graciela is a delightful young lady 40 years old that has a chief complaint of pain in the right side of her neck that radiates down the right arm and what seems to be both a C6 and AC 7 dermatome. This started in October basically insidious in onset. The pain has been quite bad. She has had to take a week off work now. 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 Is basically a white collar occupation. She states that she is unable to sleep for more than an hour to at a time because the pain wakes her up. On examination she has very positive Spurling's to the right side. She has weakness of the triceps and weakness of the extensors of the right wrist. This represents the C7 and C6 nerve roots. She has an absent right triceps reflex. It is 1+ to 2 on the left she has no long tract signs. Clonus is absent Babinski's are downgoing. I reviewed the Plain x-rays and the MRI scan of the cervical spine that was ordered by . She has what is probably hard disc disease but possibly some soft disc disease at C6-7 on the right side blocking out the exit of the C7 nerve root. She also has right-sided herniation at C5-6. She has been hurting severely now for 3 months. She has significant neurological deficits. Surgical intervention is indicated in the form of an anterior cervical fusion at C6-7 and at C5-6 with concentration on the right side of each level. Because of the neurological deficit she is not a good candidate for epidural steroid injections as this could conceivably make it worse. She is also not a candidate for any physical therapy again because she has significant neurological deficits of 2 different nerve roots. I will see her again the week before her surgery is scheduled. Coding Level of Care Code Off vis,new,level 3 Diagnoses Degeneration of cervical intervertebral disc M50.30 Cervical radiculopathy at C6 M54.12 Cervical radiculopathy at C7 M54.12 Time Spent (min) 30 Assessment and Plan Assessment and Plan (1) Degeneration of cervical intervertebral disc: (2) Cervical radiculopathy at C6: Status: Acute (3) Cervical radiculopathy at C
[2021-03-24] VITALS (15 sets, daily range): BP systolic 135–153; BP diastolic 77–93; PULSE 82–100; RESP 14–18; TEMP 36.1–37.2; O2SAT 93–100; BMI 45.3
--- NOTE | 2021-03-24 | DISC_PTH ---
PATIENT: BRANDON BRISCOE LOC: MS3 U#:[id number] AGE/SX: 40/F ROOM: [facility] RE03/24/[address]: Dr. Phong Ramos DO : 1980 BED: 1 DIS: 03/25/2021 SPEC #: [id number] RECD: 03/24/21 12:37 STATUS: KEVIN REBethanie #: [id number] JAVIER: 03/24/21 00:[address]: Phong Ramos DEPT: SURGICAL PATHOLOGY RECD BY: Dorian Ruelas ENTERED: 03/24/21 12:37 SP TYPE: DISC OTHR DR: AMERICO Jimenez Tissues: Intervertebral disc, NOS Procedures: Surgery Specimen Level III HEADER OPERATION: ERAS, anterior cervical fusion C6-7, C5-6 PRE-OP DIAGNOSIS: Degeneration of cervical intervertebral disc; cervical radiculopathy TISSUE SUBMITTED: Cervical disc MICROSCOPIC DIAGNOSIS Cervical disc: Fragments of fibrocartilaginous tissue with reactive and degenerative changes. MILTON:iban 03/25/2021 MICROSCOPIC DESCRIPTION Slides are reviewed. GROSS DESCRIPTION Received in fixative is one container labeled with the patient's name and designated cervical disc. The specimen consists of multiple pieces of holm-pink, indurated tissue that in aggregate measure 3.5 x 3.5 x 1 cm. Public Health Advisor tissue is submitted in two cassettes. / MILTON:iban 03/24/2021 TC:5 CPT: 87035
[2021-03-24] MEDS: Acetaminophen 500 MG Tablet 1000 MG PO (06:16)
[2021-03-24] MEDS: dexAMETHasone 10 MG/ML Vial 8 MG IV (06:16)
[2021-03-24] MEDS: Lactated Ringers 1,000 ML 15 ML IV ×2 (06:21→12:41)
[2021-03-24 06:23] LABS: Internal QC Validated? YES +Cl - CLEAR BKGD; Pregnancy, Urine Negative Negative
[2021-03-24 06:30] LABS: Bedside Glucose 103 mg/dL (70-110)
[2021-03-24] MEDS: Cefazolin 2 GM in 0.9% Normal Saline 100 ML IV (07:28)
--- NOTE | 2021-03-24 08:00 | RAD_ITS ---
EXAM: XR CERVICAL SPINE, 1 VIEW : 1980 CLINICAL INDICATION: ANTEIOR FUSION C5-6. 6-7, RIGHT TECHNIQUE: Lateral view of the cervical spine. This report was created using [employer] report generation technology. COMPARISON: 12/17/2020 FINDINGS: VERTEBRAE: Single lateral view of the cervical spine was obtained Preserved vertebral body height. No acute fracture. No spondylolisthesis. Preservation of the normal cervical lordosis. No significant facet arthropathy. DISC SPACES: There is a metallic surgical instrument entering anteriorly the distal tip anterior to the C6-7 disc space SOFT TISSUES: Unremarkable. No prevertebral soft tissue widening. LUNG APICES: Clear. RAD/Spine 1 View Any Level IMPRESSION: Localization of the C6-7 disc space. at 0836 Reported and signed by: Taz Bae MD Electronically Signed: Taz Bae MD at 8:34 EST Tel , Service support ,
[2021-03-24] MEDS: Heparin 10,000 UNITS/10 ML Vial 10000 UNITS (08:40)
[2021-03-24] MEDS: THROMBIN (RECOMBINANT) 20,000 UNIT VIAL 20000 UNIT TOPICAL (08:40)
--- NOTE | 2021-03-24 09:00 | RAD_ITS ---
EXAM: XR CERVICAL SPINE, 1 VIEW : 1980 CLINICAL INDICATION: Anterior fusion C5-6, C6-7 -- IMAGE 2 TECHNIQUE: Lateral view of the cervical spine. This report was created using [employer] report generation technology. COMPARISON: None. FINDINGS: VERTEBRAE: Lateral view the cervical spine was obtained. It shows orthopedic hardware anterior to the C6 and C7 vertebral bodies. Preserved vertebral body height. No acute fracture. No spondylolisthesis. Preservation of the normal cervical lordosis. No significant facet arthropathy. DISC SPACES: Unremarkable. Disc spaces are maintained. SOFT TISSUES: Unremarkable. No prevertebral soft tissue widening. LUNG APICES: Clear. RAD/Spine 1 View Any Level IMPRESSION: Intraoperative localization of the C6 and C7 vertebral bodies. at 0937 Reported and signed by: Taz Bae MD Electronically Signed: Taz Bae MD at 9:36 EST Tel , Service support ,
--- NOTE | 2021-03-24 09:12 | RAD_ITS ---
EXAM: XR CERVICAL SPINE, 1 VIEW CLINICAL INDICATION: Anterior fusion -- Image 3 TECHNIQUE: Lateral view of the cervical spine. This report was created using Thismoment report generation technology. COMPARISON: Study done earlier FINDINGS: VERTEBRAE: Unremarkable. Preserved vertebral body height. No acute fracture. No spondylolisthesis. Preservation of the normal cervical lordosis. No significant facet arthropathy. DISC SPACES: Anterior fusion plate visualized at C5, C6 and C7. Disc spacers in place. SOFT TISSUES: Unremarkable. No prevertebral soft tissue widening. LUNG APICES: Clear. RAD/Spine 1 View Any Level IMPRESSION: Anterior fusion plate visualized at C5, C6 and C7. Disc spacers in place. Electronically Signed: Andrew Valerio MD at 16:07 EST , Service support ,
--- NOTE | 2021-03-24 11:38 | OP.PCM_ITS ---
Report of Operation Date of Procedure: 03/24/21 Description of Surgical Findings:: Preoperative diagnosis: Herniated disc C6-7 and C5-6 on the right Postoperative diagnosis: The same Procedures: #1 anterior cervical fusion C6-7 CPT code 04021 #2 application of plate C5-C7 CPT code 29376/59 #3 anterior cervical fusion C5-6 CPT code 36692/51 #4 insertion of cage C6-7 CPT code 15650 #5 insertion of cage C5-6 CPT code 21454/51 Surgeon: Dr. Ramos pathology assistant: Elaine DRISCOLL Anesthesia: General endotracheal anesthesia administered by [facility] EBL: Less than 30 cc Drains: 1/4 inch Mont[place] Complications: None Procedure: Patient was taken to the OR where she was placed in the supine position on the operating table. A Veliz catheter was inserted. Neuro monitoring placed their leads and the patient. We then applied a Kerlix from 1 wrist around the feet and to the other wrist for pulling purposes. A preoperative x-ray was taken with a marker tape inside the neck to ensure that I will start the incision at the right level. This was marked with a small laceration using the end of the needle. The right crest and the neck were then prepped and draped in standard fashion. First we obtained our BMA. Second puncture incision with a 15 blade over the right ASIS the Jamshidi needle was then inserted and tamped into place. These of BMA were then obtained. This was handed off to the landfill gas technician who was able to separate the stem cells from the rest of the cells and concentrate them 8-10 times. These were given back to us on the OR table. I then made an incision at the predetermined point starting in line with longer's lines to the edge of the right sternocleidomastoid muscle. Subcutaneous tissues were incised length of skin incision. I then undermined the subcutaneous tissues off of the platysma above and below. Note that she had a platysma that had an open medial border so we simply exploited this opening first exploiting the superficial cervical fascia followed by the exploitation of the 3 tracheal fascia. In this fashion we were able to identify the carotid artery I then retracted the midline structures to the left exposing the precervical fascia this was then opened what we thought would be 6 7. A needle marker was then put in place and an x-ray was taken to confirm that we were at the 6 7 level. I cauterized the longus coli muscles on either side and elevated them off of the disc on the left on the right. The stoneworking belt sander retractors were then put in place side to side and up and down. This gave us good access to the C6-7 disc. Using a 15 blade I remove the anterior annulus and then removed more nucleus from in the disc base with pituitary rongeurs. A distractor was then put first on the left side distracting the right I then used curettes to remove cartilage off the endplates all the way back to the corner of the uncinate process. Use a bur to remove portion of the uncinate process and nerve hook to probe the foramen 2 pieces of herniated disc were then removed from there no doubt decompressing the base of the C7 nerve root. We then removed the remaining cartilage off both the endplates and I used a bart bur to bur necessary areas to make for a cage. Anterior lips were also removed with a bur. We then took her measurements for the cage we decided to use a large cage 8 mm high. I then broached this space to good bleeding endplate thorough irrigation was carried out we then filled the cage with SPARC bone that had been soaked in the patient's own stem cells. Note this has both osteoinductive and osteoconductive properties. The cage was then tamped into place and countersunk 2 mm. Then removed the retraction instrumentation and moved up to the next level up which was C5-6. Again the coli muscles were cauterized and gently elevated off of the disc space and the stoneworking belt sander retractors were then put in place I then remove the anterior annulus the same way with a 15 blade and removed more nucleus from within the disc space with pituitary rongeurs. Distractor was used on 1 side where I was able to remove more nucleus and remove the cartilage off the endplates with curettes. This was done on both sides. I then used the bart bur again to bur the uncinate process areas on both sides and level of the anterior lipping and removed the anterior osteophytes. This gave me a good flat surface for our cage. We took measurements for the cage decided to use a 7 mm cage at this level. It was also a large cage like the first 1. Again it was filled with SPARC bone graft that was soaked in the patient's own stem cells. This was then tamped into place and countersunk a couple of millimeters. We then decided on a 45 mm anterior plate. The plate rocked just a little so we needed to do just a little more lordosis so we been in just a little with the plate cavanaugh. Then if it perfectly. Once centered we punched 2 holes into C7 2 into C6 and 2 into a 5 individually followed by insertion of 16 mm screws. This was seen on the lateral projection of an x-ray was found be quite satisfactory the position of the hardware the cages the plate and screws. We then placed amnionic membrane directly over the plate to prevent adhesions to the trachea or esophagus and 1/4 inch Gail was inserted. We then closed the platysma running fashion with 5-0 Vicryl for closure of subcutaneous tissues and 5-0 Vicryl interrupted fashion and the skin was approximated using a running subcuticular stitch with 5-0 nylon. Sterile dressings were applied and a safety pin was placed through the Gail drain to prevent a suction into the wound. The patient was then recovered in the OR taken to recovery in satisfactory condition. This is the end of operative summary on Graciela Clemons. This is Dr. Ramos dictating.
[2021-03-24] MEDS: Morphine 4 MG/ML Syringe IV ×2 (15:00→17:17)
[2021-03-24] MEDS: dexAMETHasone 4 MG/ML Vial IV ×2 (17:17→22:14)
[2021-03-24] MEDS: Lactated Ringers 1,000 ML 100 ML IV (17:25)
[2021-03-24] MEDS: Cefazolin 1 GM/50 ML BAG IV (18:09)
[2021-03-24] MEDS: oxyCODONE 5 MG Tablet PO ×2 (18:12→22:14)
[2021-03-24] MEDS: Senna/Docusate Sodium 1 Tablet 2 TABLET PO (20:57)
[2021-03-24] MEDS: Famotidine 20 MG Tablet PO (20:57)
[2021-03-24] MEDS: cycloBENZAPRine HCl 5 MG TABLET PO (22:14)
[2021-03-25] MEDS: Cefazolin 1 GM/50 ML BAG IV (01:20)
[2021-03-25 01:26] VITALS: BP 145/80; PULSE 84; RESP 16; TEMP 36.9; O2SAT 95
[2021-03-25] MEDS: dexAMETHasone 4 MG/ML Vial 2 MG IV ×2 (05:37→10:54)
[2021-03-25] MEDS: oxyCODONE 5 MG Tablet PO (05:37)
[2021-03-25] MEDS: 0.9% Saline Lock 10 ML Syringe IV (05:40)
[2021-03-25 05:53] VITALS: BP 144/90; PULSE 82; RESP 16; TEMP 36.7; O2SAT 98
[2021-03-25] MEDS: Ensure Surgery 237 ML LIQUID PO ×2 (07:56→10:54)
[2021-03-25] MEDS: Lisinopril 40 MG Tablet PO (07:58)
[2021-03-25] MEDS: Senna/Docusate Sodium 1 Tablet 2 TABLET PO (07:58)
[2021-03-25] MEDS: Famotidine 20 MG Tablet PO (07:58)
[2021-03-25] MEDS: hydroCHLOROthiazide 12.5mg 12.5 MG PO (07:58)
--- NOTE | 2021-03-25 10:00 | CASEMGMT ---
CROW WILSON Assessment: Face to Face with pt for initial transition planning/care coordination assessment. RN CM introduced self and role at [facility], pt voices understanding and consents to assessment. Pt is A/O x4 and answers all questions appropriately at this time. Pt lying in bed in no distress. Care providers, pharmacy, and demographics verified/updated. Admitting Dx: R anterior cervical fusion C6-7, C5-6 PCP:Chau DRISCOLL Specialists:Richard, spine surgeon Preferred Pharmacy: [facility] Retail Insurance: MARY Hodge Prescription Benefit: yes LW/HPOA: Pt would like information on LW/DPOA. Provided copies of forms to her. She states she would like to complete while at [facility], notified TRAINING AND QUALITY MANAGER Nathaly Roberts. LNOK: Sumit Clemons, Living Arrangements: Pt lives with and children in a two story house with 3 steps to enter in the back and 2 in the front with a rail. Pt reports she is I in ADL's and denies concerns at home. Transportation: Pt drives self and denies concerns with transportation. DME/HHC/SNF: Pt denies having any DME in the home, previous HHC or SNF stays. Pt states no concerns with going home at time of dc. Pt states no further concerns/needs. CM to follow. Advised pt to ask CM if any further question/concerns/needs arise, voices understanding. Pt Goal: Home Plan: Home
--- NOTE | 2021-03-25 11:05 | CASEMGMT ---
SW assisted pt in completing POA for healthcare, pt named her Sumit as healthcare POA. SW reviewed LW, pt not ready to complete this document at this time. SW gave pt original and a copy of healthcare POA, copy placed on chart. AUDELIA Crespo
--- NOTE | 2021-03-25 12:54 | PCM.DC ---
Discharge Instructions Follow Up Care Test Results: Test results from this visit will be discussed in further detail at your follow-up appointment, if applicable. Discharge Plan Admission Admit Date/Time: 03/24/21 11:24 Primary Reason for Your Visit: surgery Attending Provider: Phong Ramos Primary Care Provider: Milly Finn Discharge Orders/Prescriptions Prescriptions: No Action sumatriptan succinate [Imitrex] 25 mg tablet 25 mg PO ONCE RF: 0 hydrochlorothiazide 12.5 mg Capsule 12.5 mg PO DAILY RF: 0 lisinopril 40 mg Tablet 40 mg PO DAILY RF: 0 cyclobenzaprine 5 mg tablet 5 - 10 mg PO PRN PRN (Reason: muscle spasm) RF: 0 Referrals / Follow Up: Milly Finn PA [Primary Care Provider] - Disposition Disposition (needs filled in before D/C Order can be placed): Home, Self Care
[2021-03-25 13:24] VITALS: BP 159/79; PULSE 74; RESP 16; TEMP 37.4; O2SAT 98
--- NOTE | 2021-03-25 14:08 | NURSING ---
DR COOLEY NOTIFIED THAT PT REQUESTING PERCOCET INSTEAD OF NORCO FOR D/C HOME PAIN MED. DR COOLEY STATES HE WILL PUT IN ELECTRONIC ORDER FOR PERCOCET. RETAIL PHA NOTIFIED TO DESTROY WRITTEN RX FOR NORCO.
== END 2021-03-25 15:00 | disposition home or self-care (01) ==
LOC: SDC 16:37 → MS3 16:37
PROVIDERS: Anesthesiology; Admitting Provider Internal Medicine Cardiovascular Disease; PCP Physician Assistant; Referring Provider Orthopaedic Surgery; Visit Provider Orthopaedic Surgery
PROC: (CPT 22551; principal; 2021-03-24 07:00)
DX: M50.122 Cervical disc disorder at C5-C6 level with radiculopathy (principal); Z79.899 Other long term (current) drug therapy; I10 Essential (primary) hypertension
CPT/HCPCS: 00670; 20931; 20938; 22551; 22552; 22845; 22853 ×2; 36415; 72020; 80048; 81025; 82962; 83735; 85025; 85610; 85730; 86703; 86706; 86708; 86803; 87077; 87081; 88304; 93005; 96361; 96365; 96366; 96375; 96376; 99218; 99251; C1713; J7120; A4216; G0378; G0463; J2405

== ENCOUNTER → 2022-02-15 | Outpatient (CLI) | payer BC, MEDICAID, SELFPAY ==
--- NOTE | 2022-02-15 16:50 | NEURO_ITS ---
NCS and/or EMG Patient Report Ordering Doctor: Elaine Samuel DATE OF SERVICE: 02/15/22 Indication: History of prior cervical stenosis status post decompression and three level fusion. Now with episodic pain and paresthesia traveling down the right upper extremity. Evaluate for ongoing cervical radiculopathy. Findings: Nerve conduction studies were performed in the right upper extremity. The right median motor study recording the abductor pollicis brevis showed a normal amplitude, normal distal latency and normal conduction velocity. The right ulnar motor study recording the abductor digiti minimi showed a normal amplitude, normal distal latency and normal conduction velocity. No conduction block or focal slowing was present across the elbow. Right median-ulnar lumbrical / interosseous motor latencies showed a normal median latency compared to the ulnar. The right median sensory response recording digit two showed a normal amplitude, latency and conduction velocity. The right ulnar sensory response recording digit five showed a normal amplitude, latency and conduction velocity. The right radial sensory response recording over the extensor snuff box showed a normal amplitude, latency and conduction velocity. Needle EMG of the right upper extremity and cervical paraspinal muscles was performed. No denervation was seen in any muscle. Motor units were markedly large amplitude and long duration with reduced recruitment in the triceps. Motor units were slightly large amplitude and long duration with reduced recruitment in the flexor carpi radialis. All other motor unit morphology, activation and recruitment patterns were normal. Impression: This is an abnormal study. There is electrophysiologic evidence consistent with a chronic, right, C7 radiculopathy. There is no active denervation to suggest ongoing motor axon loss. In addition, there was no electrophysiologic evidence of superimposed median or ulnar entrapment neuropathy. Jonah Lombardo D.O. Multi Select Codes Neurology Neurology Interp Codes: 37780-88 [facility] [place] test done w/n test comp (interp) and 66428-14 Nr cndj test 7-8 studies (interp)
== END | disposition home or self-care (01) ==
LOC: PSN 14:50
PROVIDERS: PCP Physician Assistant
DX: Z98.1 Arthrodesis status (principal)
CPT/HCPCS: 95886; 95910

== ENCOUNTER 2022-07-19 15:00 | Outpatient (RCR) | payer BC, MEDICAID, SELFPAY ==
--- NOTE | 2022-07-01 18:08 | HP.PTEVAL_ITS ---
Patient's Visit Information BRANDON BRISCOE is a 42 year old F referred to Physical Therapy by Dr. Hayden Perez, DO with a diagnosis of ARTHRODESIS STATUS ,MALAISE. Date of Evaluation: 07/01/22 Physical Therapist: Young Benjamin, PT, Cert MDT, OCS - Visit Plan Frequency: 2x /Week Duration: 4 Weeks Plan: S/P CERVICAL FUSION 2021. OT WILL FOCUS ON LEFT ARM ULNAR. LEFT ARM HIGLY IRRITABLE. PT INTERVETIONS CERVICAL ROM /ISOMTRICS , POSTURAL EX'S ,GENERAL CONDITIONING ,CORE EX'S AND US/CP/MHP - Subjective This 42 y/o female presents to physical therapy with cervical spine with radicular symptom ~ year . Patient has had cervical surgery with cage C5-6-7 ON Mar [address] Ramos at [facility] . Patient stated feels not right feeling fatigued tired. Patient had cervical pain and radicular symptoms thus had MRI stenosis and DDD and HNP. Patient continue to have pain in arms - and - nerve conduction on right arm + Dr. Ramos may think need surgery ulnar nerve. Patient neck and spine pain and radicular symptoms right arm and left elbow region to hand. Aggravating factors turning neck ,sitting ,lifting ,driving. Alleviating factors rest. Symptoms affects sleeping . Patient denies dizziness/nausea. Patient has migraines. Patient fell last week on arms. Patient tried PT but unable to do pain. Patient has no trauma. Patient goals to increase endurance and pain. Patient will have OT ilnar. SOCAIL: . 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 PALAPTION: tender left lateral elbow ,paraspinals /UT. NEURO: c/o paresthesia/tingling arms and left 3 fingers ,C5-6-7 2/3. AROM: BUE WFL. MMT: right UE 4/5 ,except shoulder 4-/5 , (peak force) shoulder 4 ,triceps ,wrist 0,biceps 4 Defer tx to OT for ulnar nerve. CERVICAL ROM: flexion min loss pain neck ,rotation /lateral flexion mod/severe right ,left min/mod ,extension loss. no motion testing will increase ,decrease ,produce symptoms in right arm - Special Tests C/S Radiculapathy - Left Upper limb tension test: Positive C/S Radiculapathy - Right Upper limb tension test: Negative C/S Radiculapathy - Left Spurlings: Negative C/S Radiculapathy - Right Spurlings: Negative C/S Radiculapathy - Left Cervical distraction: Negative C/S Radiculapathy - Right Cervical distraction: Negative C/S Radiculapathy - Right Relief test: Negative Sharp Lat[place]: Negative Vertebral Artery Test: Negative Alar Ligament Test: Negative - Goals Goal 1:: I with HEP for conditioning. Goal Time Frame: 4-6 Weeks Goal 2:: Patient to demonstrate 50% improvement with increase function with less pain. Goal Time Frame: 4-6 Weeks Goal 3:: Patient to improve cervical ROM for function of recovery to turn neck for driving Goal Time Frame: 4-6 Weeks Goal 4:: Patient to improve neck oswestry score by 5 points to improve function Goal Time Frame: 4-6 Weeks Goal 5:: Patient to increase strength LUE by 5 points of peak force for ADLS Goal Time Frame: 4-6 Weeks - Rehabilitation Potential Physical Therapy Diagnosis: This patient has had cervical fusion 5-6-7 fusion and cage done by DR Ramos Nov 2020 and conts to have pain right arm ,poor ROM especially to right ,along with condition of pain in left arm and elbow with paresthesia/tingling thus is deconditioned will be seeing OT for left UE ulnar nerve Rehabilitation Potential: Good - Anticipated Interventions Patient/Client Instruction: Educate patient on: Condition, Plan of Care For the Purpose of:: To decrease pain, To increase ROM, To improve muscle performance and motor function, To increase tolerance to activity/condition/position, To improve ability of physical actions for home/community/work/leisure, To improve health of tissue, To decrease soft tissue restriction, To prevent re-injury Therapeutic Exercise to Include: Strength training, Endurance training, Balance training, Postural training, Flexibilty training, Active ROM, Dynamic Lumbar Stabilization For the Purpose of:: To decrease pain, To increase ROM, To improve ability to perform ADL's, To increase tolerance to activity/condition/position, To improve ability of physical actions for home/community/work/leisure, To improve health o f tissue, To decrease soft tissue restriction, To increase flexibility/ROM, To improve tolerance to ADL's TENS: Yes IF ES: Yes Cryotherapy (ice pack, ice massage): Yes Thermo therapy (hot pack): Yes Ultrasound (thermal/non thermal): Yes For the Purpose of:: To decrease pain, To increase ROM, To improve nutrient delivery to tissue, To increase oxygenation perfusion, To improve health of tissue, To decrease soft tissue restriction Thank you for the opportunity to evaluate your patient. For Medicare and Medicare HMO plans, please review the plan of care and approve it. It will need to be FAXED BACK to us at [phone] for Medicare purposes. For Medicare only, by signing this I certify the plan of care. Please let me know if there are questions or concerns regarding this plan of care. Physician Signature:___ Date:
--- NOTE | 2022-07-02 07:05 | HP.OTEVAL ---
Patient's Visit Information BRANDON BRISCOE is a 42 year old F, referred to Occupational Therapy by Dr. Hayden Perez DO, with a diagnosis of cubital tunnel left UE. Date of Evaluation: 07/01/22 Occupational Therapist: Jennifer Louie, MELISSA/Jennifer, CHT - Subjective This 42 year old female was seen for OT eval with dx of ulnar neve lesion left UE-. pt did have cervical spine sx in 2020. after MRI indicated cervical spine compression. pt states her right UE recovered immediately following her neck sx. Left UE started 2021 No MRI or xray to her neck pt had nerve conduction test in 2022. pt states the gave her ulnar gutter brace for night use. pt states she wears the elbow brace for night use and wraps with miguelito wrap. pt reports symptoms of LF and RF tingling and numbness. pain on lateral elbow point tender- and pt states she feels like she has a blood pressure cuff on her biceps- arm pit hurts feels better after massage. pt states she does Ice her left elbow 1x a day. pt states straightening her elbow out is very painful but does not increase symptoms of tingling. pt would like to decrease her symptoms of pain/tingling and numbness to return to her PLOF. pt had PT prior to OT sessions- very uncomfortable sitting in chair while this therapist was performing assessment. pt moving around and needing to stand and walk around a number of times due to discomfort at her neck/shoulder region - Pain left elbow 6 - ROM Shoulder: right left WNL with pain in elbow and armpit Elbow: right left WNL ( pt painful on lateral elbow with AROM) ROM Comments: pt demo full ROM of bilateral UE. however UE ROM causes a increase in pain- pt states she just can not get her arm comfortable at all. - Strength Polymerization Oven Tender: right 40# left 15# Lateral Pinch: right 8# left 2# Tripod Pinch: right 10# left 2# Strength Comments: right script worker strength elbow straight 30# left 5# with pain ( 8/10). pt demo with weakness of left UE. positive Froment's sign left - Sensation Thumb: right 2.83 left 2.83 Index: right 2.83 left 2.83 Middle: right 2.83 left 2.83 Ring: right 2.83 left 2.83 Little: right 2.83 left 2.83 Sensation Comments: pt reports tingling throughout ulnar nerve sensory distribution - Special Tests Elbow Flexion Test - Cubital Tunnel: positive left Tinels - Ulnar n.: positive left Lat Epiconylitis - as named: left painful with palpation - Quick DASH-Disab of Arm,Shoulder& Hand Quick DASH Score: 73.3325 - Goals Goal:: pt will demo a increase in left script worker strength by 15# or greater to increase her ind. with ADLs and IADLs by d/c. pt will demo increase in BUE strength to lift 15# to simulate grocery/box carry by d.c. pt will demo a increase in left lateral and tripod pinch to 10# to increase ind. with ADls and IADLs by d/c Goal:: pt will report pain no greater than 2/10 with AROM of left UE throughout all plans of motion by d.c. pt will report pain no greater than 3/10 with use of left UE with ADLs and IADLs performance by d/c Goal:: pt will report a decrease in tingling/numbness by 50% or greater by d/c. pt will demo understanding of positions of left UE that increase nerve symptoms by end of 3rd session Goal:: pt will demo understanding of work station ergo for computer/desk and make 2 changes to her work station by end of 5th session. - Rehabilitation General Assessment: pt demo with symptoms and weakness consistent with nerve involvement and palpation pain on left lateral epi. pt painful with sitting and resting arm on therapist tabletop. pt states she feels she is limited with strength/ functional daily tasks due to pain and weakness of left UE. pt states she struggles with sleeping and would like to decrease symptoms. Pt would benefit from skilled OT services 2x week for 6 weeks to decrease symptoms of pain/tingling and initiate PRE to return pt to a PLOF. Rehabilitation Potential: Good - Anticipated Interventions A/AAROM/PROM, Desensitization, Modalities, Orthoses, Joint Protection/Energy Conservation, Ergonomic Education, Education re assistive Equipment, Education re Diagnosis, Home Program, Other - Visit Plan Frequency: 2x /Week Duration: 4 Weeks TEXT: Thank you for the opportunity to evaluate your patient. For Medicare and Medicare HMO plans, please review the plan of care and approve it. It will need to be FAXED BACK to us at [phone] for Medicare purposes. Please let me know if there are questions or concerns regarding this plan of care. Physician Signature: Date:
--- NOTE | 2022-11-24 15:28 | HP.OT.NRP ---
Patient Information Patient Information: BRANDON BRISCOE was seen in my office for initial evaluation on 07/01/22. The following Plan of Care was established for this patient: POC Established Initial Frequency: 2x /Week Initial Duration: 4 Weeks Plan: Continue POC. Anticipated Interventions Anticipated Interventions: A/AAROM/PROM, Desensitization, Modalities, Orthoses, Joint Protection/Energy Conservation, Ergonomic Education, Education re assistive Equipment, Education re Diagnosis, Home Program and Other Last Seen Last Seen: This patient was last seen in our office 07/19/22. Pertinent comments regarding their Occupational therapy will appear below: pt was seen for 2 OT sessions and No showed the remaining scheduled. Due to time lapse in services pt d/c at this time. At this point I will be discontinuing this patient from occupational therapy. I would be happy to see this patient again in the future if found appropriate by the physician. Thank you! Jennifer Louie, OTR/L, CHT
== END 2022-07-19 19:00 | disposition home or self-care (01) ==
LOC: OT 15:00
PROVIDERS: PCP Physician Assistant; Referring Provider Orthopaedic Surgery; Visit Provider Orthopaedic Surgery
DX: G56.22 Lesion of ulnar nerve, left upper limb (principal); Z98.1 Arthrodesis status; R53.81 Other malaise
CPT/HCPCS: 97110; 97162; 97166; 97530

== ENCOUNTER → 2022-08-17 | Outpatient (CLI) | payer BC, MEDICAID, SELFPAY ==
--- NOTE | 2022-08-17 13:12 | MRI_ITS ---
INDICATION: pain, n/t left arm, hx cervical surgery 17 mos ago EXAMINATION: MRI - MR Spine Cervical W/O Contrast TECHNIQUE: Multiplanar and multisequence MR images of the cervical spine were performed. IV Contrast Dosage and Agent: None. COMPARISON: 01/21/2021 FINDINGS: VERTEBRAE: Normal vertebral bodies and posterior elements. VERTEBRAL ALIGNMENT: Interval ACDF C5-C7. Straightening of cervical lordosis. CERVICAL SPINAL CORD: Mild flattening the cord anteriorly C3-4 due to pathology detailed below. Normal cord signal intensity. C2/C3: Mild disc bulging. C3/C4: Moderate disc desiccation and loss of disc space height, moderate disc bulging. Borderline central stenosis, bilateral facet arthropathy and uncovertebral joint disease with moderate bilateral neural foraminal encroachment C4/C5: Small right paracentral disc herniation new since prior study, bilateral facet arthropathy and uncovertebral joint disease with mild bilateral neural foraminal encroachment. C5/C6: Mild recurrent or residual disc osteophyte, bilateral facet arthropathy and uncovertebral joint disease with moderate bilateral neural foraminal encroachment. . C6/C7: Minimal recurrent or residual disc osteophyte. C7/T1: Normal disc height and morphology. Normal spinal canal and neuroforamina. NECK SOFT TISSUES: No prevertebral soft tissue swelling. There is no cervical adenopathy. MRI/Spine Cervical (Routine) IMPRESSION: Interval ACDF C5-C7. Moderate disc bulging C3-4. Small right paracentral disc herniation C4-5. Mild recurrent or residual disc osteophyte C5-6, minimal recurrent or residual disc osteophyte C6-7. Multilevel degenerative disc disease, flattening the cord anteriorly, facet arthropathy, uncovertebral joint disease and neural foraminal encroachment as above. Electronically Signed: Cristhian Pleitez MD, MAMTA at 22:08 EDT ,
== END | disposition home or self-care (01) ==
LOC: MRI 13:12
PROVIDERS: PCP Physician Assistant; Referring Provider Orthopaedic Surgery; Visit Provider Orthopaedic Surgery
DX: M54.12 Radiculopathy, cervical region (principal); Z98.1 Arthrodesis status
CPT/HCPCS: 72141

== ENCOUNTER 2022-12-30 19:20 | Emergency (ER) | payer BC, SELFPAY ==
[2022-12-30 19:21] VITALS: BP 194/104; PULSE 100; RESP 18; TEMP 36.8; O2SAT 98; BMI 45.4
[2022-12-30 19:39] LABS: Bacteria 0 SEEN /hpf (None Seen); Color, Urine Yellow (Yellow); Glucose, Dipstick Normal (Normal); Ketone-Dipstick 5 mg/dl (Negative); Leukocyte Esterase-Dipstick 500 /ul (Negative); Nitrite-Dipstick Negative (Negative); Occult Blood-Urine 250 /ul (Negative); Protein-Dipstick 30 mg/dl (Negative); Urine Bilirubin Dipstick Negative (Negative); Urine Clarity Sl. Cloudy (Clear); Urine Urobilinogen Normal (Normal)
[2022-12-30 20:01] LABS: Mucous, Urine 2+ /hpf (<or=2+); Red Blood Cells-Urine 0-5 SEEN /hpf (0-5); Squamous Epithelial Cells - UA 0-5 SEEN /hpf (5-10); White Blood Cells 5-10 SEEN /hpf (0-5)
[2022-12-30 20:52] VITALS: BP 177/102; PULSE 84; RESP 18; O2SAT 99
--- NOTE | 2022-12-30 21:06 | US_ITS ---
STUDY: ULTRASOUND OF THE FEMALE PELVIS - COMPLETE REASON FOR EXAM: Female, 42 years old. BURNING WITH URINATION AND VAG BLEEDING X 2 WEEKS LMP: 12/15/2022. TECHNIQUE: Transvaginal TECHNICAL QUALITY: Adequate. COMPARISON: 12/06/2018. FINDINGS: The uterus is anteverted and is in a midline position. The uterus measures 9.1 x 4.8 x 3.9 cm. Normal uterine cervix. The endometrium measures 7.0 mm in thickness, and is hyperechoic. There is no demonstrated endometrial mass. There is no demonstrated myometrial mass. I.U.D. - The patient does not have an I.U.D. The right ovary is visualized. The right ovary measures 2.2 x 2.2 x 1.3 cm cm. Within the right ovary there is a round anechoic structure measuring 1.4 x 1.3 x 1.0 cm consistent with a simple cyst. There is no visualized right adnexal mass or complex lesion. There is normal arterial and normal venous vascularity. The left ovary is visualized. The left ovary measures 2.3 x 1.5 x 1.3 cm. Within the left ovary there is a round anechoic structure measuring 1.8 x 0.7 by 0.7 cm. There is no visualized left adnexal mass or complex lesion. There is normal arterial and normal venous vascularity. There is mild fluid in the cul-de-sac. There is nonspecific debris within the urinary bladder which could represent infectious process, secondary to hematuria or proteinaceous debris. US/Transvaginal Non- IMPRESSION: Small bilateral simple ovarian cysts most compatible with nonspecific follicular cysts. Otherwise unremarkable female pelvis ultrasound. Electronically Signed: Ирина Jean MD at 22:45 EDT ,
--- NOTE | 2022-12-30 21:08 | ED.VIS.FEGU ---
HPI HPI - Female History of Present Illness Chief Complaint: Complaint Informant: patient Narrative Narrative: Patient presents with some dysuria and vaginal bleeding and odor. She states she started bleeding about 2 weeks ago. She had had spotting for a few days prior to this. Her prior period was a month prior to this. Normally she is pretty regular. She has been having typical menstrual bleeding but is continuing for 2 weeks. She states it has a very bad odor to it. She states it is the blood that has an odor. Not really a discharge. She also has dysuria frequency and a little bit of urgency. She states the burning with urination seems on the inside not just externally. She gets some pain in the pelvic area more on the right. But she is eating and drinking normally. No fevers or chills. Normal bowel movements. She has had the left tube stapled and partially removed due to a prior ectopic. [facility] Medical History Anemia Bladder disease Cancer Gestational diabetes History of echocardiogram History of ectopic History of stress test Hypertension Injury of head and neck Low iron Non-smoker Preeclampsia Vertigo Home Medications sumatriptan succinate 25 mg tablet (Imitrex) 25 mg PO ONCE 01/07/21 [History Last Taken Unknown] hydrochlorothiazide 12.5 mg capsule 12.5 mg PO DAILY 03/12/21 [History Last Taken Unknown] lisinopril 40 mg tablet 40 mg PO DAILY 03/12/21 [History Last Taken Unknown] meloxicam 15 mg tablet 15 mg PO DAILY #30 tabs 06/07/22 [Rx Last Taken Unknown] fluconazole 150 mg tablet (Diflucan) 150 mg PO DAILY #2 tabs 12/30/22 [Rx Last Taken Unknown] metronidazole 1 % topical gel (Metrogel) 1 applic topical DAILY 7 days #60 grams 12/30/22 [Rx Last Taken Unknown] sulfamethoxazole 800 mg-trimethoprim 160 mg tablet (Bactrim DS) 1 tab PO BID #14 tabs 12/30/22 [Rx Last Taken Unknown] Allergy/AdvReac Type Severity Reaction Status Date / Time ciprofloxacin [From Cipro] Allergy Hives Verified 12/30/22 19:24 ciprofloxacin HCl Allergy Hives Verified 12/30/22 19:24 [From Cipro] Family History Grandfather Colon cancer Mother Uterine cancer Grandmother COPD (chronic obstructive pulmonary disease) Kidney disease Emphysema lung CHF (congestive heart failure) Surgical History History of bowel resection History of unilateral fallopian tube excision History of wisdom tooth extraction Social History adopted: Yes (patient grew up in foster care) household members: spouse and children housing: house current occupational status: employed 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 pets and animals: Yes pets and animals: dog(s), bird(s), fish and turtle(s) Smoking Status: Never smoker alcohol intake: current alcohol intake frequency: holidays/special occasions only substance use type: does not use what type of physical activity do you participate in: none seatbelt use: always do you feel safe at home: Yes ROS ROS ED ROS Narrative A complete review of systems was performed and is negative except as documented in the history of present illness. Some specific details below. Constitutional: No recent fevers or chills. No malaise. ENT: No difficulty swallowing. No swelling. No pain. No GERD. CV: No chest pain or palpitations. Respiratory: No dyspnea. No hemoptysis. No difficulty taking breaths. GI: No change in bowel habits. She is able to eat and drink well. No vomiting. No nausea. : See history of present illness. Musculoskeletal: No recent trauma. No pains. Skin: No rash. Nondiaphoretic. Neuro: No weakness or numbness. Endocrine: No polyuria or polydipsia. EXAM Physical Exam Narrative Exam Narrative: CONSTITUTIONAL: Patient is nontoxic in appearance. The patient looks comfortable. She does not look pale HEENT: No notable trauma. Mucous membranes moist. No sinus tenderness. No indication of pain with swallowing. EYES: No conjunctival injection. No pallor. CARDIOVASCULAR: Regular rate. Regular rhythm. No notable murmur. No JVD. RESPIRATORY: No respiratory distress. Breathing is unlabored. No wheezes. No rhonchi. No rales. No pain with a deep breath. GASTROINTESTINAL: Not distended. Bowel sounds are normal. No tenderness. No guarding. No rebound. No palpable mass. No bruit. Despite her symptoms, her abdomen is actually relatively benign. GENITOURINARY: No tenderness over the bladder. No CVA tenderness. MUSCULOSKELETAL: Atraumatic. No peripheral edema. No cord. No tenderness along the deep venous system. No asymmetry. NEUROLOGICAL: Patient is alert and appropriate. No focal deficit noted. SKIN: No noted rashes. No diaphoresis. No pallor. PSYCHIATRIC: Patient is calm. Mood is appropriate. Const Vital Signs: 12/30/22 19:21 12/30/22 20:52 12/30/22 22:56 Temperature 98.3 F Temperature Source Temporal Pulse Rate 100 84 84 Respiratory Rate 18 18 16 Blood Pressure 194/104 H 177/102 H Blood Pressure Mean 134 127 Pulse Ox 98 99 97 Oxygen Delivery Method Room Air Room Air Room Air 12/30/22 23:00 12/30/22 23:23 12/30/22 23:32 Temperature Temperature Source Pulse Rate Respiratory Rate 17 17 Blood Pressure 216/96 H 184/86 H 171/80 H Blood Pressure Mean 136 118 110 Pulse Ox Oxygen Delivery Method Room Air Room Air Room Air MDM MDM MDM Narrative Medical decision making narrative: Patient CBC showed minimal anemia. But platelets and white count are normal. Patient's electrolytes were normal other than mildly low potassium that should self correct. Also, her glucose was relatively normal at 106. My concern is that she had had some frequent urination and she stated more volume than normal so I wanted to make sure this was not diabetes causing her symptoms. There is no indication of that. Serum is not negative Urinalysis has mixed findings. It is cloudy. She has leukocyte Estrace. She has slightly increased white cells. But no nitrites. But since she has dysuria frequency urgency and this finding I will treat this pending cultures. Pelvic exam was done with nurse Mihaela in attendance. She has scant amount of bleeding. There is a slightly fishy odor consistent with BV. Since she has UTI symptoms and positive urine we will treat that. She has done well with Bactrim before. She has allergies to fluoroquinolones. I will write for [employer] also for the BV. I will give her a tablet of Diflucan to take toward the end of treatment as she has had yeast infections after antibiotics before. 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 We discussed reasons to return. Lab Data Attestation: I reviewed the patient's lab results. Labs: Laboratory Results - last 24 hr 12/30/22 12/30/22 19:30 21:35 WBC 8.8 RBC 4.10 L Hgb 11.8 L Hct 36.8 L MCV 89.8 MCH 28.8 MCHC 32.1 RDW Std Deviation 43.1 RDW Coeff of Mat 13.2 Plt Count 358 MPV 9.6 Immature Gran % (Auto) 0.300 Neut % (Auto) 59.1 Lymph % (Auto) 32.3 [place] % (Auto) 6.5 Eos % (Auto) 1.3 Baso % (Auto) 0.5 Absolute Neuts (auto) 5.2 Absolute Lymphs (auto) 2.83 Nucleated RBC % 0 Sodium 140 Potassium 3.3 L Chloride 107 Carbon Dioxide 27.0 Anion Gap 6 BUN 17 Creatinine 0.84 Estim Creat Clear Calc 78.51 Est GFR (MDRD) Af Amer 96 Est GFR (MDRD) Non-Af 79 BUN/Creatinine Ratio 20.3 H Glucose 106 Calcium 8.8 Serum , Qual NEGATIVE Urine Color Yellow Urine Clarity Sl. Cloudy Urine pH 5.0 Ur Specific [place] 1.030 Urine Protein 30 H Urine Glucose (UA) Normal Urine Ketones 5 H Urine Occult Blood 250 H Urine Nitrite Negative Urine Bilirubin Negative Urine Urobilinogen Normal Ur Leukocyte Esterase 500 H Urine RBC 0-5 SEEN Urine WBC 5-10 SEEN Ur Squamous Epith Cells 0-5 SEEN Urine Bacteria 0 SEEN Urine Mucus 2+ Radiography Diagnostic Testing: Clinical Impression(s) from Imaging Studies Transvaginal US 12/30/22 21:06 IMPRESSION: Small bilateral simple ovarian cysts most compatible with nonspecific follicular cysts. Otherwise unremarkable female pelvis ultrasound. Electronically Signed: Ирина Jean MD at 22:45 EDT , Discharge Plan Triage Chief Complaint: Complaint ED Provider: Abimael Lyon Dx/Rx/DC Orders Clinical Impression: UTI (urinary tract infection), Bacterial vaginosis, Vaginal bleeding Instructions: UTIs Understanding, ED Bacterial Vaginosis (BV) Prescriptions: New sulfamethoxazole-trimethoprim [Bactrim DS] 800-160 mg tablet 1 tab PO BID Qty: 14 0RF fluconazole [Diflucan] 150 mg tablet 150 mg PO DAILY Qty: 2 0RF Rx Instructions: 1 dose in 5 days and repeat dose 3 days after ending antibiotics metronidazole [Metrogel] 1 % gel 1 applic topical DAILY 7 Days Qty: 60 0RF No Action sumatriptan succinate [Imitrex] 25 mg tablet 25 mg PO ONCE Patient Comments: FOR MIGRANES meloxicam 15 mg tablet 15 mg PO DAILY Qty: 30 0RF Rx Instructions: Do not take in conjunction with other NSAIDs. Tylenol is okay. 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 Disposition Disposition: Home, Self Care
[2022-12-30 21:58] LABS: Absolute Lymphocyte Count 2.83 X10^3/uL (0.83-4.51); Absolute Neutrophil Count 5.2 X10^3/uL (2.0-7.7); Basophil# 0.04 X10^3/uL; Basophil% 0.5 % (0-1); Eosinophil# 0.11 X10^3/uL; Eosinophils% 1.3 % (0-5); Hematocrit 36.8 % (37-47); Hemoglobin 11.8 g/dL (12.0-15.0); Lymphocyte # 2.83 X10^3/ul (0.83-4.51); Lymphocyte % 32.3 % (19-41); Mean Corp Hgb Conc 32.1 g/dL (32-36); Mean Corpuscular Hgb 28.8 pg (27.0-32.0); Mean Corpuscular Volume 89.8 fL (81-99); Mean Platelet Vol. 9.6 fl (6.2-12.0); Monocyte# 0.57 X10^3/uL; Monocyte% 6.5 % (0-10); NRBC Flagged by Analyzer 0 % (0-5); Neutrophil # 5.18 X10^3/uL (2.7-7.7); Neutrophil % 59.1 % (47-70); Platelet Count 358 K/mm3 (150-450); RBC Distribution Width CV 13.2 % (11.6-14.6); RBC Distribution Width SD 43.1 fl (35.1-43.9); White Blood Count 8.8 K/mm3 (4.4-11.0)
[2022-12-30 22:07] LABS: Internal QC Validated? YES +Cl - CLEAR BKGD; Pregnancy, Serum, hCG Quali. NEGATIVE Negative
[2022-12-30 22:12] LABS: Anion Gap 6 (5-15); BUN 17 mg/dL (7-18); BUN/Creat Ratio 20.3 RATIO (10-20); Calcium,Total 8.8 mg/dL (8.5-10.1); Chloride 107 mmol/L (98-107); Creatinine, Serum 0.84 mg/dL (0.55-1.02); EST Glomerular Filtration Rate 79 mL/min (>60); Est Glom Filt Rate - Afr Amer 96 mL/min (>60); Estimated Creatinine Clearance 78.51 ml/min; Glucose 106 mg/dL (74-106); Potassium 3.3 mmol/L (3.5-5.1); Sodium Level 140 mmol/L (136-145)
[2022-12-30 22:56] VITALS: PULSE 84; RESP 16; O2SAT 97
[2022-12-30 23:00] VITALS: BP 216/96
[2022-12-30 23:23] VITALS: BP 184/86; RESP 17
[2022-12-30 23:32] VITALS: BP 171/80; RESP 17
== END 2022-12-31 00:04 | disposition home or self-care (01) ==
PROVIDERS: Emergency Provider Emergency Medicine; PCP Physician Assistant; Visit Provider Emergency Medicine
DX: N39.0 Urinary tract infection, site not specified (principal); N76.0 Acute vaginitis; N93.9 Abnormal uterine and vaginal bleeding, unspecified
CPT/HCPCS: 76830; 80048; 81001; 84703; 85025; 87086; 87088; 87491; 87591; 99283; A4216

== ENCOUNTER 2023-06-16 21:18 | Emergency (ER) | payer BC, SELFPAY ==
[2023-06-16 21:19] VITALS: BP 251/126; PULSE 89; RESP 18; TEMP 36.7; O2SAT 98; BMI 46.3
--- NOTE | 2023-06-16 21:28 | EKG12_ITS ---
Test Reason : PAIN Blood Pressure : / mmHG Vent. Rate : 080 BPM Atrial Rate : 080 BPM P-R Int : 170 ms QRS Dur : 100 ms QT Int : 356 ms P-R-T Axes : 049 -01 028 degrees QTc Int : 410 ms Normal sinus rhythm Moderate voltage criteria for LVH, may be normal variant ( R in aVL , Kurt product ) Borderline ECG Confirmed by OSEI GÓMEZ, SERENA ([id number]), associate entertainment editor GHISLAINE WYNNE ([id number]) on 06/17/2023 1:06:32 PM Referred By: Confirmed By:SERENA FRANZ MD
--- NOTE | 2023-06-16 21:30 | EX.ED.DYSGE1 ---
HPI History of Present Illness Chief Complaint: Other, Pain/Inj Detail of Chief Complaint: Pain axilla and elevated blood pressure Informant: patient Onset/Context/Timing Onset: Yesterday and - (Blood pressure has been elevated for some time and started on antihypertensive meds 1 week ago) Context: Sudden Onset Timing: Continuous Quality: Pain Location: Left axilla Current Severity: Mild Maximum Severity: Severe Worsened by: Movement especially abduction Relieved by: Nothing Associated Symptoms Associated Symptoms: Patient was unaware that she had swelling. Narrative Narrative: Patient is a 43-year-old woman who was started on antihypertensive meds 1 week ago. She was started on lisinopril, hydrochlorothiazide and propranolol. Propranolol was chosen because she also has history of migraines. She does have a history of gestational diabetes. She also has cervical radiculopathy at multiple levels. She is morbidly obese with a BMI of 46.4. Patient denies headache. Patient [place] double vision, blurred vision loss of vision. Patient denies ringing in ears or decreased hearing. She denies trouble with speech or swallowing. She denies paresthesia, anesthesia or motor weakness. She denies problems with coordination or balance. Patient recalled on Tuesday she had a COVID booster left arm. Patient denies fever, chills night sweats. Denies weight gain or weight loss. Prior similar symptoms: No Recent Illness/Hospitalization: No [facility] Medical History Anemia Bladder disease Cancer Gestational diabetes History of echocardiogram History of ectopic History of stress test Hypertension Injury of head and neck Low iron Non-smoker Preeclampsia Vertigo Home Medications sumatriptan succinate 25 mg tablet (Imitrex) 25 mg PO ONCE 01/07/21 [History Last Taken Unknown] hydrochlorothiazide 12.5 mg capsule 12.5 mg PO DAILY 03/12/21 [History Last Taken Unknown] lisinopril 40 mg tablet 40 mg PO DAILY 03/12/21 [History Last Taken Unknown] meloxicam 15 mg tablet 15 mg PO DAILY #30 tabs 06/07/22 [Rx Last Taken Unknown] fluconazole 150 mg tablet (Diflucan) 150 mg PO DAILY #2 tabs 12/30/22 [Rx Last Taken Unknown] metronidazole 1 % topical gel (Metrogel) 1 applic topical DAILY 7 days #60 grams 12/30/22 [Rx Last Taken Unknown] sulfamethoxazole 800 mg-trimethoprim 160 mg tablet (Bactrim DS) 1 tab PO BID #14 tabs 12/30/22 [Rx Last Taken Unknown] Allergy/AdvReac Type Severity Reaction Status Date / Time ciprofloxacin [From Cipro] Allergy Hives Verified 06/16/23 21:21 ciprofloxacin HCl Allergy Hives Verified 06/16/23 21:21 [From Cipro] Family History Grandfather Colon cancer Mother Uterine cancer Grandmother COPD (chronic obstructive pulmonary disease) Kidney disease Emphysema lung CHF (congestive heart failure) Surgical History History of bowel resection History of unilateral fallopian tube excision History of wisdom tooth extraction Social History adopted: Yes (patient grew up in foster care) household members: spouse and children housing: house current occupational status: employed 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 pets and animals: Yes pets and animals: dog(s), bird(s), fish and turtle(s) Smoking Status: Never smoker alcohol intake: current alcohol intake frequency: holidays/special occasions only substance use type: does not use what type of physical activity do you participate in: none seatbelt use: always do you feel safe at home: Yes ROS ROS ED Constitutional Constitutional ED: Denies chills, fever(s), subjective, sweats or weight loss Eyes Eyes: Denies blurry vision, change in vision or diplopia ENT ENT ED: Denies ear pain, rhinorrhea or sore throat Cardiovascular Cardiovascular: Denies chest pain, orthopnea, palpitations, paroxysmal nocturnal dyspnea or racing heartbeat Respiratory/Chest Respiratory/Chest: Denies cough, dyspnea, dyspnea on exertion, orthopnea or paroxysmal nocturnal dyspnea Gastrointestinal Gastrointestinal: Denies abdominal pain, constipation, diarrhea, melena, nausea or vomiting Genitourinary Genitourinary ED: Denies dysuria, hematuria or urinary frequency Musculoskeletal Musculoskeletal: Denies arthralgias, back pain or myalgias Integumentary Denies rash Neurologic Neurologic: Denies headache(s), paresthesias or weakness Hematologic/Lymphatic Hematologic/Lymphatic: Reports systems reviewed and no addt'l complaints, except as documented EXAM Physical Exam Const Vital Signs: 06/16/23 21:19 06/16/23 21:32 06/16/23 21:46 Temperature 98.0 F Temperature Source Temporal Pulse Rate 89 87 Respiratory Rate 18 18 Respiratory Pattern Normal Blood Pressure 251/126 H 211/117 H Blood Pressure Mean 167 148 Pulse Ox 98 98 Oxygen Delivery Method Room Air Room Air Positive well nourished, well developed and obese General Appearance ED: well developed and NAD; Negative for cyanotic, diaphoretic or pallor Nutritional Appearance: obese HEENT Reports moist mucous membranes HEENT Narrative: Head is atraumatic and normocephalic. Ears normal. TMs normal. Nares patent. Uvula midline. No deviation tongue or protrusion. Eyes PERRL and EOMs intact bilaterally Eyes Narrative: Unable to see optic nerve without dilating eyes. There is no nystagmus. There is no photophobia. Neck no lymphadenopathy, supple and no JVD Chest Wall inspection of chest normal and palpation of chest normal Chest Narrative: There is no asymmetry of the breast. There is no erythema. There is no dimpling. There is no palpable mass with nurse in room as perioperative educator Resp normal respiratory effort and clear to auscultation bilaterally Cardio regular rate, regular rhythm, S1 normal heart sound, S2 normal heart sound and no murmurs GI normal to inspection, nondistended, normoactive bowel sounds, non-tender, non-distended and no masses; Negative for hepatosplenomegaly Back/Spine no CVA tenderness Extremity Extremity Narrative: There is swelling of the left arm compared to the right. Patient does have shotty axillary lymph nodes noted on the left. There is no distention of the veins in the arm or forearm. There is no palpable cords. There is no discoloration. The swelling is limited to the proximal left arm. There is no swelling of the forearm compared to the right side. Axillary, median, radial and ulnar function intact. Radial pulses 2+ and symmetric. Neuro oriented x3, CN's II-XII intact bilaterally and no sensory deficits noted Sensorium / Orientation: alert Motor Exam: strength 5/5 throughout Psych mental status grossly normal Skin no rashes or lesions noted, no wounds and skin turgor normal General Skin Exam: elasticity normal; Negative for jaundice or pallor MDM MDM MDM Narrative Medical decision making narrative: With patient having swelling of the arm axillary lymph nodes concern was that this may be an infectious process. This may be a reaction to the booster to. CBC was obtained assess white count differential. Because there was concern for infection and no clear etiology until the patient informed the nurse that she forgot she received booster vaccine on Tuesday. Sed rate was obtained as an inflammatory marker. BMP to assess renal function. As well as electrolytes. UA to assess for proteinuria and hematuria. Patient's initial blood pressure is elevated 251/120 6 repeat is 221/112. Patient states her pressure last week when she was started on blood pressure med was 180/100. Lab Data Attestation: I reviewed the patient's lab results. Lab results narrative: CBC reveals mild anemia with normal indices. Sed rate is slight elevated 31. This is nondiagnostic. Labs: Laboratory Results - last 24 hr 06/16/23 21:39 WBC 6.6 RBC 3.89 L Hgb 11.4 L Hct 34.9 L MCV 89.7 MCH 29.3 MCHC 32.7 RDW Std Deviation 44.9 H RDW Coeff of Mat 13.8 Plt Count 294 MPV 9.3 Immature Gran % (Auto) 0.300 Neut % (Auto) 58.4 Lymph % (Auto) 29.4 [place] % (Auto) 9.3 Eos % (Auto) 2.1 Baso % (Auto) 0.5 Absolute Neuts (auto) 3.8 Absolute Lymphs (auto) 1.93 Nucleated RBC % 0 ESR 31 H Sodium 139 Potassium 3.7 Chloride 109 H Carbon Dioxide 25.0 Anion Gap 5 BUN 19 H Creatinine 0.82 Estim Creat Clear Calc 118.34 Est GFR (MDRD) Af Amer 97 Est GFR (MDRD) Non-Af 81 BUN/Creatinine Ratio 23.1 H Glucose 151 H Calcium 9.0 Total Bilirubin 0.20 AST 13 L ALT 23 Alkaline Phosphatase 98 Total Protein 7.4 Albumin 3.2 Globulin 4.2 Albumin/Globulin Ratio 0.8 L EKG Initial EKG: Attestation: I personally reviewed and interpreted this EKG as follows: Interpretation: Sinus Rhythm (Rate is 80. VT interval is 170 ms per cures duration 100 ms. QT duration 306 ms. [place]ill is normal. Patient does have evidence of mild LVH by voltage criteria.) Follow-up EKG: Attestation: I personally reviewed and interpreted this EKG as follows: Interpretation: Sinus Rhythm (Rate of 75. Patient has LVH by voltage criteria. VT interval is 142 ms. QS duration 88 ms. QT duration Clinisync 6 ms. Averill normal. The EKG is unchanged from the initial EKG. This was obtained because patient reported pain to the nurse.) Treatment and Re-Evaluation :: Blood pressure remains elevated. Will treat with 20 mg of labetalol IV push. Most recent blood pressure is 164 102. Patient be discharged to home. Discharge Plan Triage Chief Complaint: Other, Pain/Inj ED Provider: Serjio Ding Dx/Rx/DC Orders Clinical Impression: Adverse effect of COVID-19 vaccine, Accelerated essential hypertension, Left arm swelling, Axillary lymphadenopathy Instructions: ED Hypertension, Established Prescriptions: No Action sumatriptan succinate [Imitrex] 25 mg tablet 25 mg PO ONCE Patient Comments: FOR MIGRANES meloxicam 15 mg tablet 15 mg PO DAILY Qty: 30 0RF Rx Instructions: Do not take in conjunction with other NSAIDs. Tylenol is okay. hydrochlorothiazide 12.5 mg Capsule 12.5 mg PO DAILY lisinopril 40 mg Tablet 40 mg PO DAILY sulfamethoxazole-trimethoprim [Bactrim DS] 800-160 mg tablet 1 tab PO BID Qty: 14 0RF fluconazole [Diflucan] 150 mg tablet 150 mg PO DAILY Qty: 2 0RF Rx Instructions: 1 dose in 5 days and repeat dose 3 days after ending antibiotics metronidazole [Metrogel] 1 % gel 1 applic topical DAILY 7 Days Qty: 60 0RF Primary Care Provider: Milly Finn Referrals: Milly Finn PA [Primary Care Provider] - 1 Week Disposition Disposition: Home, Self Care
[2023-06-16 21:32] VITALS: BP 211/117; PULSE 87; RESP 18; O2SAT 98
--- OUTSIDE RECORDS SUMMARY | 2023-06-16 21:36 | XMS RPT_ITS | CCD ---
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 Conceptor Relationship Specialty Start Date End Date Milly Finn PA-C [address] [place] [address] PCP - General Family Practice 09/06/16 Conceptor Relationship Specialty Start Date End Date Milly Finn PA-C [address] [place] [address] PCP - General Family Medicine 09/06/16 Conceptor Relationship Specialty Start Date End Date Milly Finn PA-C [address] [place] [address] PCP - General Family Medicine 09/06/16 Conceptor Relationship Specialty Start Date End Date Milly Finn PA-C [address] [place] [address] PCP - General Family Medicine 09/06/16 Conceptor Relationship Specialty Start Date End Date Milly Finn PA-C [address] [place] [address] PCP - General Family Medicine 09/06/16 Conceptor Relationship Specialty Start Date End Date Milly Finn PA-C [address] [place] [address] PCP - General Family Medicine 09/06/16 Conceptor Relationship Specialty Start Date End Date Milly Finn PA-C [address] [place] [address] PCP - General Family Medicine 09/06/16 Conceptor Relationship Specialty Start Date End Date Milly Finn PA-C [address] [place] [address] PCP - General Family Medicine 09/06/16 Conceptor Relationship Specialty Start Date End Date Milly Finn PA-C [address] [place] [address] PCP - General Family Medicine 09/06/16 Conceptor Relationship Specialty Start Date End Date Milly Finn PA-C [address] [place] [address] PCP - General Family Medicine 09/06/16 Conceptor Relationship Specialty Start Date End Date Milly Finn PA-C [address] [place] [address] PCP - General Family Medicine 09/06/16 Conceptor Relationship Specialty Start Date End Date Milly Finn PA-C [address] [place] [address] PCP - General Family Medicine 09/06/16 Conceptor Relationship Specialty Start Date End Date Milly Finn PA-C [address] [place] [address] PCP - General Family Medicine 09/06/16 Conceptor Relationship Specialty Start Date End Date Milly Finn PA-C [address] [place] [address] PCP - General Family Medicine 09/06/16 Conceptor Relationship Specialty Start Date End Date Milly Finn PA-C [address] [place] [address] PCP - General Family Medicine 09/06/16 Conceptor Relationship Specialty Start Date End Date Milly Finn PA-C [address] [place], [place] [address] PCP - General Family Medicine 09/06/16 Conceptor Relationship Specialty Start Date End Date Milly Finn PA-C [address] [place], [place] [id number] PCP - General Family Medicine 09/06/16 Reason for Visit (unrecogniz ed section and content) Reason Comments Insurance Authorization Reason Comments Appointment MRI Reason Onset Date Comments Refill Request 10/16/2021 Reason Comments Consult colonoscopy Reason Comments Results Reason Comments Vaginal Problem Reason Onset Date Comments Hypertension 11/02/2022 Reason Comments New Patient Specialty Diagnoses / Procedures Referred By Contac t Referred To Contact Pain Management Diagnoses Acute bilateral thoracic back pain Procedures CONSULT TO PAIN MGT OFFICE/OUTPATIENT [facility] 60-74 MINUTES Milly Finn PA-C [address] [place] [address] Referral ID Status Reason Start Date Expiration Date V isits Requested Visits Authorized [id number] Closed PCP Requested Referral 11/22/2022 11/22/2023 1 1 Reason Comments Insurance Authorization [facility] 2022 Reason Comments Neck Pain Back Pain Specialty Diagnoses / Procedures Referred By Contac t Referred To Contact Diagnoses Cervical spondylosis without myelopathy Cervical radiculopathy Migraine with aura and without status migrainosus, not intractable Procedures CONSULT TO CHIROPRACTOR OFFICE/OUTPATIENT [facility] MDM 60-74 MINUTES Jessica Bearden MD [address] [address] Referral ID Status Reason Start Date Expiration Date Visits Requested Visits Authorized [id number] Pending Review PCP Requested Referral 3 05/04/2023 1 1 Reason Comments Injection Questions Reason Comments Low Back Pain Reason Comments Neck Pain Reason Comments Hypertension Follow up INFORMATION SOURCE (unrecogn ized section and content) DATE CREATED AUTHOR AUTHOR'S ORGANIZ ATION 05/27/2023 [facility] DATE CREATED AUTHOR AUTHOR'S EN ATZULEYKA 06/15/2023 [facility] FOR RECORDS PERTAINING TO PATIENTS WHO ARE OR HAVE BEEN ENROLLED IN A CHEMICAL DEPENDENCY/SUBSTANCEABUSE PROGRAM, SOME INFORMATION MAY BE OMITTED. This clinical summary was aggregated from multiple sources. Caution should be exercised in using it in the provision of clinical care. This summary normalizes information from multiple sources, and as a consequence, information in this document may materially change the coding, format and clinical context of patient data. In addition, data may be omitted in some cases. CLINICAL DECISIONS SHOULD BE BASED ON THE PRIMARY CLINICAL RECORDS. [facility]. provides no warranty or guarantee of the accuracy or completeness of information in this document.
[2023-06-16 21:52] LABS: Absolute Lymphocyte Count 1.93 X10^3/uL (0.83-4.51); Absolute Neutrophil Count 3.8 X10^3/uL (2.0-7.7); Basophil# 0.03 X10^3/uL; Basophil% 0.5 % (0-1); Eosinophil# 0.14 X10^3/uL; Eosinophils% 2.1 % (0-5); Hematocrit 34.9 % (37-47); Hemoglobin 11.4 g/dL (12.0-15.0); Lymphocyte # 1.93 X10^3/ul (0.83-4.51); Lymphocyte % 29.4 % (19-41); Mean Corp Hgb Conc 32.7 g/dL (32-36); Mean Corpuscular Hgb 29.3 pg (27.0-32.0); Mean Corpuscular Volume 89.7 fL (81-99); Mean Platelet Vol. 9.3 fl (6.2-12.0); Monocyte# 0.61 X10^3/uL; Monocyte% 9.3 % (0-10); NRBC Flagged by Analyzer 0 % (0-5); Neutrophil # 3.83 X10^3/uL (2.7-7.7); Neutrophil % 58.4 % (47-70); Platelet Count 294 K/mm3 (150-450); RBC Distribution Width CV 13.8 % (11.6-14.6); RBC Distribution Width SD 44.9 fl (35.1-43.9); Red Blood Count 3.89 M/mm3 (4.2-5.4); White Blood Count 6.6 K/mm3 (4.4-11.0)
[2023-06-16 22:05] LABS: Erythrocyte Sedimentation Rate 31 mm/hr (0-30)
[2023-06-16 22:15] LABS: ALB/GLOB Ratio 0.8 RATIO (0.9-2.4); AST(SGOT) 13 U/L (15-37); Alanine Aminotransfer ALT/SGPT 23 U/L (13-56); Albumin, Serum 3.2 g/dL (3.2-5.0); Alkaline Phosphatase 98 U/L (45-117); Anion Gap 5 (5-15); BUN 19 mg/dL (7-18); BUN/Creat Ratio 23.1 RATIO (10-20); Chloride 109 mmol/L (98-107); Creatinine, Serum 0.82 mg/dL (0.55-1.02); EST Glomerular Filtration Rate 81 mL/min (>60); Est Glom Filt Rate - Afr Amer 97 mL/min (>60); Estimated Creatinine Clearance 118.34 ml/min; Globulin 4.2 g/dL (2.2-4.2); Glucose 151 mg/dL (74-106); Potassium 3.7 mmol/L (3.5-5.1); Protein, Total 7.4 g/dL (6.4-8.2); Sodium Level 139 mmol/L (136-145)
[2023-06-16] MEDS: Labetalol (Prefilled) 20 MG/4 ML IV (22:31)
--- NOTE | 2023-06-16 22:33 | EKG12_ITS ---
Test Reason : REPEATE Blood Pressure : / mmHG Vent. Rate : 075 BPM Atrial Rate : 075 BPM P-R Int : 142 ms QRS Dur : 088 ms QT Int : 366 ms P-R-T Axes : 013 003 021 degrees QTc Int : 408 ms Normal sinus rhythm Minimal voltage criteria for LVH, may be normal variant ( R in aVL ) Borderline ECG Confirmed by OSEI GÓMEZ, SERENA ([id number]), news video editor GHISLAINE WYNNE ([id number]) on 06/17/2023 1:06:44 PM Referred By: Confirmed By:SERENA FRANZ MD
--- NOTE | 2023-06-16 22:33 | ED.RN ---
c/o sternal chest pain, ekg obtained. c/o chest heaviness.
[2023-06-16 23:09] VITALS: BP 156/88; PULSE 78; RESP 22; TEMP 36.8; O2SAT 98
== END 2023-06-16 23:37 | disposition home or self-care (01) ==
PROVIDERS: Emergency Provider Emergency Medicine; PCP Physician Assistant; Visit Provider Emergency Medicine
DX: R59.0 Localized enlarged lymph nodes (principal); E66.01 Morbid (severe) obesity due to excess calories; Z68.42 Body mass index [BMI] 45.0-49.9, adult; T50.B95A Adverse effect of other viral vaccines, initial encounter; I10 Essential (primary) hypertension
CPT/HCPCS: 80053; 85025; 85652; 93005; 96374; 99284; A4216

== ENCOUNTER 2024-03-11 14:53 | Emergency (ER) | payer OTHER, SELFPAY ==
[2024-03-11] VITALS (9 sets, daily range): BP systolic 180–203; BP diastolic 100–120; PULSE 100–107; RESP 14–21; TEMP 37.6–37.8; O2SAT 93–97; BMI 44.4
--- NOTE | 2024-03-11 15:05 | EDS_ITS ---
HPI History of Present Illness Chief Complaint: Shortness of Breath Narrative Narrative: Patient is a 43-year-old female past medical history of vertigo, anemia, hypertension, gestational diabetes who presents to the emergency department with a chief complaint of diffuse bodyaches, chills, sore throat, shortness of breath and chest pain. Patient states that her son was here just recently with similar symptoms and was diagnosed with a viral infection. She states that she now has very similar symptoms to him. Patient states that she has not been compliant with her blood pressure medication as she does not like that it makes her cough. Patient states that she did not contact her primary care physician about this. Patient denies any recent travel history denies any blood clots. [facility] Medical History Vertigo Cancer Bladder disease Low iron Anemia Injury of head and neck Non-smoker History of echocardiogram History of stress test Hypertension History of ectopic Gestational diabetes Preeclampsia Home Medications ?Medication ?Instructions ?Recorded ?Last Taken ?Type sumatriptan succinate 25 mg tablet 25 mg PO ONCE 01/07/21 Unknown History (Imitrex) hydrochlorothiazide 12.5 mg capsule 12.5 mg PO DAILY 03/12/21 Unknown History lisinopril 40 mg tablet 40 mg PO DAILY 03/12/21 Unknown History meloxicam 15 mg tablet 15 mg PO DAILY #30 tabs 06/07/22 Unknown Rx fluconazole 150 mg tablet 150 mg PO DAILY #2 tabs 12/30/22 Unknown Rx (Diflucan) metronidazole 1 % topical gel 1 applic topical DAILY 7 days #60 12/30/22 Unknown Rx (Metrogel) grams sulfamethoxazole 800 1 tab PO BID #14 tabs 12/30/22 Unknown Rx mg-trimethoprim 160 mg tablet (Bactrim DS) amlodipine 5 mg tablet 5 mg PO DAILY #30 tabs 03/11/24 Unknown Rx Allergy/AdvReac Type Severity Reaction Status Date / Time ciprofloxacin (From Cipro) Allergy Hives Verified 03/11/24 14:53 ciprofloxacin HCl (From Allergy Hives Verified 03/11/24 14:53 Cipro) Family History Grandfather Colon cancer Mother Uterine cancer Grandmother COPD (chronic obstructive pulmonary disease) Kidney disease Emphysema lung CHF (congestive heart failure) Surgical History History of bowel resection History of wisdom tooth extraction History of unilateral fallopian tube excision Social History adopted: Yes (patient grew up in foster care) household members: spouse and children housing: house current occupational status: employed 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 pets and animals: Yes pets and animals: dog(s), bird(s), fish and turtle(s) Smoking Status: Never smoker alcohol intake: current alcohol intake frequency: holidays/special occasions only substance use type: does not use what type of physical activity do you participate in: none seatbelt use: always do you feel safe at home: Yes ROS ROS ED ROS Narrative Constitutional: Complains of chills, diffuse bodyaches, headaches as noted above Ears eyes nose and throat: Complaint sore throat as noted above denies any difficulty swallowing Cardiovascular: Complains of chest tightness denies palpitations Respiratory: Complains of coughing as noted above denies wheezing Abdomen: Denies any abdominal pain nausea vomit diarrhea : Denies any urinary symptoms Neurological: Denies any numbness, weakness, tingling Musculoskeletal: Denies back pain Skin: Denies rashes or lesions EXAM Physical Exam Narrative Exam Narrative: General: Patient lying in bed rest comfortably did not appear to be in acute distress Head: Atraumatic, normocephalic Eyes, nose, throat: PERRL bilateral, EOMI bilateral, no conjunctival injection noted, patient has some posterior pharynx erythema noted, uvula midline, no concern for peritonsillar abscess, no exudates noted Neck: Soft, supple, trachea midline Cardiovascular: Regular in rhythm no murmurs gallops rubs noted Respiratory: Clear to auscultation bilaterally no rales rhonchi or wheeze noted Abdomen: Soft, nondistended, nontender to palpation, bowel sounds present x 4 Extremities: +5/5 strength noted in the bilateral upper and lower extremities, radial pulses +2/4 in the bilateral per extremities, no pedal edema neuroexam Neurological: Patient is following commands knew that she was at [facility] year is 2023. Patient completed finger-nose test bilaterally without any difficulty. NIH is 0 GCS of 15 Skin: Warm, dry, intact no rashes or lesions noted Const Vital Signs: 03/11/24 14:53 03/11/24 15:10 03/11/24 15:11 Temperature 99.6 F H Temperature Source Oral Pulse Rate 102 H Respiratory Rate 20 H Respiratory Effort Blood Pressure 203/100 H 180/100 H Blood Pressure Mean 134 126 Pulse Ox 97 Oxygen Delivery Method Room Air Room Air 03/11/24 15:16 03/11/24 15:35 03/11/24 15:45 Temperature Temperature Source Pulse Rate 100 Respiratory Rate 18 Respiratory Effort Normal Blood Pressure 184/110 H Blood Pressure Mean 132 Pulse Ox 96 93 Oxygen Delivery Method Room Air 03/11/24 15:55 03/11/24 16:00 03/11/24 16:15 Temperature 100.1 F H Temperature Source Oral Pulse Rate 101 H 107 H 106 H Respiratory Rate 21 H 17 17 Respiratory Effort Blood Pressure 186/109 H 186/109 H 188/120 H Blood Pressure Mean 134 131 140 Pulse Ox 94 97 96 Oxygen Delivery Method Room Air MDM MDM MDM Narrative Medical decision making narrative: Patient is a 43-year-old female who presents to the emergency department with a chief complaint of diffuse bodyaches, chills, sore throat, chest pressure. Patient will have a workup performed here on the differential diagnose includes but not limited to essential hypertension, hypertensive emergency, strep throat, upper respiratory infection secondary viral etiology, pneumonia although do feel this less likely as her symptoms just started yesterday. Once workup is obtained reviewed she will be reevaluated. Patient CBC reviewed and showed no evidence leukocytosis white blood count normal at 10.5, hemoglobin stable at 13, platelet count was noted to be 276. Patient's sodium normal 136, potassium normal at 3.8, creatinine normal at 0.72. Patient AST and ALT were 13 and 23 respectively patient CBC reviewed and showed no evidence leukocytosis white blood count normal at 10.5, hemoglobin stable 13, platelet count normal at 276. Patient sodium normal at 136, potassium normal at 3.8, creatinine normal at 0.72. Patient's troponin was noted to be normal at 5. Patient's EKG was reviewed and showed sinus rhythm with a rate of 99 bpm this was independently reviewed by myself. Patient's proBNP normal at 12.1. Patient's chest x-ray reviewed by myself and by radiology which showed no acute cardiopulmonary processes. Patient tested negative for strep and for COVID flu and RSV. Patient was given 0.1 mg of clonidine here in the emergency department. I did discuss results with the patient and she would like to go home at this point time. Likely the patient has the same illness as her son as her symptoms just started here today. Given that she does not like the way her other blood pressure medications that she has been prescribed in the past makes her feel we will give her a dose of amlodipine here and then start her on amlodipine. This will be sent to the pharmacy and she is advised to pick this prescription up tomorrow and start it then as she will be given her first dose here in the emergency department. Once again she has not taken her blood pressure medication in a significant amount of time, she cannot tell me the last time she took this. She was advised to return with worsening symptoms or other concerns. She is advised to rotate Tylenol and ibuprofen [id number] for her fever control as she developed a fever here in the emergency department likely explaining her heart rate. All question concerns answered she was discharged home in stable condition significant other bedside is agreeable this plan. Lab Data Labs: Laboratory Results - last 24 hr 03/11/24 15:10 WBC 10.5 RBC 4.34 Hgb 13.0 Hct 38.5 MCV 88.7 MCH 30.0 MCHC 33.8 RDW Std Deviation 40.7 RDW Coeff of Mat 12.5 Plt Count 276 MPV 9.4 Immature Gran % (Auto) 0.500 Neut % (Auto) 81.1 H Lymph % (Auto) 11.3 L [place] % (Auto) 5.5 Eos % (Auto) 1.2 Baso % (Auto) 0.4 Absolute Neuts (auto) 8.5 H Absolute Lymphs (auto) 1.19 Nucleated RBC % 0 Sodium 136 Potassium 3.8 Chloride 104 Carbon Dioxide 26.0 Anion Gap 7 BUN 10 Creatinine 0.72 Estim Creat Clear Calc 131.44 Est GFR (MDRD) Af Amer 113 Est GFR (MDRD) Non-Af 93 BUN/Creatinine Ratio 13.8 Glucose 125 H Calcium 8.8 Troponin I High Sens 5 B-Natriuretic Peptide 12.1 Radiography Diagnostic Testing: Clinical Impression(s) from Imaging Studies Chest X-Ray 03/11/24 15:05 IMPRESSION: No radiographic evidence of acute cardiopulmonary disease. Electronically Signed: Armando Coyle at 15:33 EST Reading Location ID and State: [facility] / [place] Tel [phone], Service support , Discharge Plan Triage Chief Complaint: Shortness of Breath ED Provider: Dipesh Healy Dx/Rx/DC Orders Clinical Impression: Hypertension, Upper respiratory infection, viral Instructions: ED URI, Viral, No Abx (Adult) Prescriptions: New amlodipine 5 mg tablet 5 mg PO DAILY Qty: 30 0RF No Action sumatriptan succinate [Imitrex] 25 mg tablet 25 mg PO ONCE Patient Comments: FOR MIGRANES meloxicam 15 mg tablet 15 mg PO DAILY Qty: 30 0RF Rx Instructions: Do not take in conjunction with other NSAIDs. Tylenol is okay. hydrochlorothiazide 12.5 mg Capsule 12.5 mg PO DAILY lisinopril 40 mg Tablet 40 mg PO DAILY sulfamethoxazole-trimethoprim [Bactrim DS] 800-160 mg tablet 1 tab PO BID Qty: 14 0RF fluconazole [Diflucan] 150 mg tablet 150 mg PO DAILY Qty: 2 0RF Rx Instructions: 1 dose in 5 days and repeat dose 3 days after ending antibiotics metronidazole [Metrogel] 1 % gel 1 applic topical DAILY 7 Days Qty: 60 0RF Primary Care Provider: Care Physician,No Primary Referrals: Milly Finn PA [Non-Staff] - Activity Restrictions/Additional Instructions: Take the amlodipine as prescribed. You need to follow-up with your primary care physician and keep a close eye on your blood pressure as we discussed here in the emergency department. Continue supportive care rotate Tylenol and ibuprofen [id number] for your fever control and your whole body aches. Return with worsening symptoms or any other concerns. Ensure adequate hydration. Print Language: Bahraini Disposition Disposition: Home, Self Care
--- NOTE | 2024-03-11 15:05 | EKG12_ITS ---
Test Reason : GENERAL Blood Pressure : */* mmHG Vent. Rate : 99 BPM Atrial Rate : 99 BPM P-R Int : 186 ms QRS Dur : 98 ms QT Int : 340 ms P-R-T Axes : 52 -5 55 degrees QTcB Int : 436 ms Normal sinus rhythm Left ventricular hypertrophy with repolarization abnormality ( R in aVL ) Abnormal ECG Confirmed by OSEI GÓMEZ, SERENA ([id number]), legal editor SHY WILSON ([id number]) on 03/12/2024 9:51:10 AM Referred By: Confirmed By: SERENA FRANZ MD
--- NOTE | 2024-03-11 15:05 | RAD_ITS ---
INDICATION: chest pain EXAMINATION/TECHNIQUE: X-RAY - XR Chest 2 Views COMPARISON: October 28, 2019 FINDINGS: LINES/DEVICES: None. LUNGS: No consolidation, edema or effusion. No pneumothorax. MEDIASTINUM AND CARDIOVASCULAR STRUCTURES: Cardiac silhouette not enlarged. Central airways and mediastinal contour are unremarkable. BONES AND SOFT TISSUES: Interval surgical fusion of the lower cervical levels since the previous study. RAD/Chest PA and Lateral IMPRESSION: No radiographic evidence of acute cardiopulmonary disease. Electronically Signed: Armando Coyle DO at 15:33 EST ,
[2024-03-11] MEDS: cloNIDine HCl 0.1 MG Tablet PO (15:18)
[2024-03-11 15:20] LABS: Absolute Lymphocyte Count 1.19 X10^3/uL (0.83-4.51); Absolute Neutrophil Count 8.5 X10^3/uL (2.0-7.7); Basophil# 0.04 X10^3/uL; Basophil% 0.4 % (0-1); Eosinophil# 0.13 X10^3/uL; Eosinophils% 1.2 % (0-5); Hematocrit 38.5 % (37-47); Lymphocyte # 1.19 X10^3/ul (0.83-4.51); Lymphocyte % 11.3 % (19-41); Mean Corp Hgb Conc 33.8 g/dL (32-36); Mean Corpuscular Volume 88.7 fL (81-99); Mean Platelet Vol. 9.4 fl (6.2-12.0); Monocyte# 0.58 X10^3/uL; Monocyte% 5.5 % (0-10); NRBC Flagged by Analyzer 0 % (0-5); Neutrophil # 8.53 X10^3/uL (2.7-7.7); Neutrophil % 81.1 % (47-70); Platelet Count 276 K/mm3 (150-450); RBC Distribution Width CV 12.5 % (11.6-14.6); RBC Distribution Width SD 40.7 fl (35.1-43.9); Red Blood Count 4.34 M/mm3 (4.2-5.4); White Blood Count 10.5 K/mm3 (4.4-11.0)
[2024-03-11 15:35] LABS: BNP,B-Type NATRIURETIC PEPTIDE 12.1 pg/mL (0-100)
[2024-03-11 15:38] LABS: Anion Gap 7 (5-15); BUN 10 mg/dL (7-18); BUN/Creat Ratio 13.8 RATIO (10-20); Calcium,Total 8.8 mg/dL (8.5-10.1); Chloride 104 mmol/L (98-107); Creatinine, Serum 0.72 mg/dL (0.55-1.02); EST Glomerular Filtration Rate 93 mL/min (>60); Est Glom Filt Rate - Afr Amer 113 mL/min (>60); Estimated Creatinine Clearance 131.44 ml/min; Glucose 125 mg/dL (74-106); Potassium 3.8 mmol/L (3.5-5.1); Sodium Level 136 mmol/L (136-145); Troponin-I HS 5 pg/mL (3.0-54.0)
[2024-03-11] MEDS: Acetaminophen 500 MG Tablet 1000 MG PO (16:29)
[2024-03-11] MEDS: amLODIPine 5 MG Tablet PO (16:59)
== END 2024-03-11 17:01 | disposition home or self-care (01) ==
PROVIDERS: Emergency Provider Emergency Medicine; Visit Provider Emergency Medicine
DX: J06.9 Acute upper respiratory infection, unspecified (principal); I10 Essential (primary) hypertension; Z88.1 Allergy status to other antibiotic agents; Z79.899 Other long term (current) drug therapy; Z91.148 Patient's other noncompliance with medication regimen for other reason
CPT/HCPCS: 71046; 80048; 83880; 84484; 85025; 87631; 87651; 93005; 99285; A4216

== ENCOUNTER 2024-12-27 15:44 | Emergency (ER) | payer OTHER, SELFPAY ==
[2024-12-27 15:45] VITALS: BP 181/107; PULSE 83; RESP 18; TEMP 37; O2SAT 98
--- NOTE | 2024-12-27 17:06 | ED.RN ---
[facility] 0 FOR THIS RN IN TRIAGE'
[2024-12-27 17:24] VITALS: BMI 46.7
[2024-12-27 17:44] VITALS: BP 186/89; PULSE 92; RESP 16; O2SAT 100
--- NOTE | 2024-12-27 18:14 | EDS_ITS ---
HPI History of Present Illness Chief Complaint: Dizziness Narrative Narrative: Patient is a 44-year-old female presenting to the emergency department for dizziness. Patient has a past medical history as below including history of ocular migraines and vertigo. She states that starting last evening when she went to go to bed she turned her head to the right and developed dizziness. She states when she turns her head straight or to the left she does not have dizziness. She states its only when she turns her head to the right. She denies any falls or head trauma. She denies headache. She denies any new neck pain from baseline (history of chronic neck pain), fever, chills. She reports that the upper right side of her cheek and forehead feel more sensitive than normal. She denies any numbness. Denies any weakness or numbness of her extremities. She reports a black dot in her vision that will come and go and change places. Denies any other visual changes. [facility] Medical History Vertigo Cancer Bladder disease Low iron Anemia Injury of head and neck Non-smoker History of echocardiogram History of stress test Hypertension History of ectopic Gestational diabetes Preeclampsia Home Medications ?Medication ?Instructions ?Recorded ?Last Taken ?Type sumatriptan succinate 25 mg tablet 25 mg PO ONCE 01/07 Unknown History (Imitrex) diclofenac sodium 75 mg mg PO pain 11/26/24 Unknown History tablet,delayed release losartan 50 mg tablet 50 mg PO QDAY 11/26/24 Unkno wn History methocarbamol 500 mg tablet 500 mg PO TID PRN pain/mus donnell 11/26/24 Unknown Rx spasms #30 tabs pregabalin 75 mg capsule mg PO 11/26/24 Unknown Histo ry tizanidine 4 mg tablet 4 mg PO QHS PRN muscle spasm 11/26/24 Unknown History topiramate 25 mg tablet 25 mg PO BID 11/26/24 Unknow n History meclizine 25 mg tablet 25 mg PO TID PRN dizziness # 20 tabs 12/27/24 Unknown Rx Allergy/AdvReac Type Severity Reaction Status Date / Time ciprofloxacin (From Cipro) Allergy Hives Verified 12/27/24 15:46 ciprofloxacin HCl (From Allergy Hives Verified 12/27/24 15:46 Cipro) Family History Grandfather Colon cancer Mother Uterine cancer Grandmother COPD (chronic obstructive pulmonary disease) Kidney disease Emphysema lung CHF (congestive heart failure) Surgical History History of bowel resection History of wisdom tooth extraction History of unilateral fallopian tube excision Social History adopted: Yes (patient grew up in foster care) household members: spouse and children housing: house current occupational status: employed 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 pets and animals: Yes pets and animals: dog(s), bird(s), fish and turtle(s) Smoking Status: Never smoker alcohol intake: current alcohol intake frequency: holidays/special occasions only substance use type: does not use what type of physical activity do you participate in: none seatbelt use: always do you feel safe at home: Yes ROS ROS ED ROS Narrative see HPI EXAM Physical Exam Narrative Exam Narrative: Vital signs: Reviewed General: Alert and oriented x 3. No acute distress HEENT: Head is normocephalic and atraumatic, sinuses nontender, pupils equal round and reactive. Nares are patent. Oropharynx and throat exams normal. No nystagmus. Neck: Supple without lymphadenopathy nontender Cardiovascular: Regular rate and rhythm, no murmurs. No rubs or gallops. Normal S1 and S2 Respiratory: Clear to auscultation bilaterally. No wheezes, rales, rhonchi Abdominal: Soft and nontender. Normal bowel sounds. No guarding or rebound. Nonsurgical abdomen Extremities: No tenderness. No bruising. Normal range of motion. Normal sensation. Skin: No rash or redness. Neurological: Cranial nerves II through XII are grossly intact. Normal strength and sensation. Normal cerebellar function The rest of the physical exam is unremarkable Const Vital Signs: 12/27/24 15:45 12/27/24 17:44 12/27/24 19:00 Temperature 98.6 F Temperature Source Oral Pulse Rate 83 92 76 Respiratory Rate 18 16 22 H Blood Pressure 181/107 H 186/89 H 200/85 H Blood Pressure Mean 131 121 123 Pulse Ox 98 100 95 Oxygen Delivery Method Room Air Room Air Room Air 12/27/24 21:00 12/27/24 22:04 Temperature 98.3 F Temperature Source Pulse Rate 77 83 Respiratory Rate 14 18 Blood Pressure 186/77 H 171/93 H Blood Pressure Mean 113 119 Pulse Ox 97 98 Oxygen Delivery Method Room Air NIHSS NIHSS Initial: 1a Level of Consciousness: 0 1b LOC Questions (Score 2 if aphasic/stupor): 0 1c LOC Commands (Only score 1st attempt): 0 2 Best Gaze (If aphasic, use reflexive mvmts.): 0 3 Visual: 0 4 Facial Palsy: 0 5 Motor Arm Right (UN = amputation/fusion): 0 5 Motor Arm Left: 0 6 Motor Leg Right: 0 6 Motor Leg Left: 0 7 Limb ataxia (Only + if out of proportion): 0 8 Sensory (Aphasia/stupor=0 or 1, coma=2): 0 9 Best Language: 0 10 Dysarthria (mute, coma=2, intubated=UN): 0 11 Extinction and Inattention (only scored if +): 0 Total Score: 0 MDM MDM MDM Narrative Medical decision making narrative: Patient is a 44-year-old female presenting to the emergency department for vertigo. Patient was seen and examined. Vitals are stable. Patient resting bed comfortably in no acute distress. Differential includes but is not limited to: Peripheral versus central vertigo, ocular migraine, less likely stroke Patient is neuro intact. She endorses hypersensitivity to touch on the right upper cheek and right forehead. No numbness that would be consistent with a stroke. She has no eye pain, no erythema of the eye to indicate concern for any eye pathology including acute glaucoma, CRAO, vitreous or retinal detachment or hemorrhage. The vertigo is positional. She has no ataxia. She is able to ambulate without difficulty. I do not think that is a central cause of vertigo including posterior cerebellar stroke. No recent viral illness to indicate Will give meclizine and reevaluate. Patient reevaluated. Improved dizziness after meclizine. No symptoms now. She has been mildly hypertensive, denies any headache, chest pain, abdominal pain. States that her blood pressure does run high sometimes. Reports increased stress recently at home and at her job. With the patient's initial dizziness and her blood pressure we will obtain CT CTA to rule out intracranial abnormalities. CT brain with no acute intracranial abnormality. CTA shows no acute arterial abnormality of the head or neck. Patient able to ambulate without difficulty. Updated on the negative results. She is asymptomatic. She was given a prescription for meclizine for home. Patient discharged from the Emergency Department. I do not feel that the patient's evaluation reveals any acute reason for admission at this time. I instructed them to either follow-up with their primary care physician or promptly return to the Emergency Department for reevaluation should symptoms worsen or new symptoms develop. I explained what symptoms would indicate the need to return to the emergency department. Shared decision making was used. The patient voiced understanding of the treatment plan and is agreeable with it. Clinical impression Vertigo Radiography Diagnostic Testing: Clinical Impression(s) from Imaging Studies Brain CT 12/27/24 20:13 IMPRESSION: No acute intracranial abnormality. Reading Location: [address] Head/Neck CTA 12/27/24 20:13 IMPRESSION: No acute arterial abnormality of the head or neck. Reading Location: [address] Discharge Plan Triage Chief Complaint: Dizziness ED Provider: Libia Benjamin Dx/Rx/DC Orders Clinical Impression: Vertigo Instructions: ED Vertigo, Unspecified Prescriptions: New meclizine 25 mg tablet 25 mg PO TID PRN (Reason: dizziness) Qty: 20 0RF No Action sumatriptan succinate [Imitrex] 25 mg tablet 25 mg PO ONCE Patient Comments: FOR MIGRANES losartan 50 mg tablet 50 mg PO QDAY topiramate 25 mg tablet 25 mg PO BID pregabalin 75 mg capsule PO diclofenac sodium 75 mg tablet,delayed release (DR/EC) PO tizanidine 4 mg tablet 4 mg PO QHS PRN (Reason: muscle spasm) methocarbamol 500 mg tablet 500 mg PO TID PRN (Reason: pain/muscle spasms) Qty: 30 0RF Primary Care Provider: Naomie Kerns Referrals: Naomie Kerns, BILLET CUTTER [Primary Care Provider] - 2 Days Care Physician,No Primary [Non-Staff] - Activity Restrictions/Additional Instructions: Take the meclizine every 8 hours as needed for vertigo. Your evaluation in the Emergency Department did not reveal any acute reason for admission. However, I want to emphasize that you may be early in the course of a disease process or illness even if it is not present. For this reason you should follow-up within 24 hours for reevaluation with either your primary care physician or if necessary back here in the Emergency Department. You should return to the Emergency Department immediately if your symptoms worsen or new symptoms develop. Print Language: Frisian Disposition Disposition: Home, Self Care Discharge Date/Time: 12/27/24 22:07
[2024-12-27 19:00] VITALS: BP 200/85; PULSE 76; RESP 22; O2SAT 95
--- NOTE | 2024-12-27 19:50 | CM.ED ---
Social work Patient is known to SW from a previous place of employment. SW entered patient's room to provide emotional support and patient welcomed SW visit. Patient stated updates to patient's lengthy health history that was already known by this SW. Patient stated frustrations with health and constantly being in pain. Patient was receptive to empathic support and active listening by SW. Patient denied needs at this time; SW exited room when Dr Benjamin entered. Jie Carlson, SOFTWARE PROJECT MANAGER, [employer]
--- NOTE | 2024-12-27 20:13 | CT_ITS ---
PROCEDURE: BRAIN/HEAD WITHOUT CONTRAST 12/27/2024 REASON FOR EXAM: DIZZINESS TECHNIQUE: Procedure Code: CTBR Modality: CT Procedure: BRAIN/HEAD WITHOUT CONTRAST Coronal and Sagittal reconstruction series were provided. One or more dose reduction techniques were used (e.g., Automated exposure control, adjustment of the mA and/or kV according to patient size, use of iterative reconstruction technique. RADIATION DOSE SUMMARY: DLP: 1597 mGycm FINDINGS: The ventricles are normal in size and midline in position. No evidence of acute hemorrhage or infarction. No extra-axial blood or fluid collections. The paranasal sinuses and mastoid air cells are clear. The calvarial vault and skull base are intact. CT/Brain/Head without Contrast IMPRESSION: No acute intracranial abnormality. Reading Location: [id number]
--- NOTE | 2024-12-27 20:13 | CT_ITS ---
PROCEDURE: CTA HEAD AND NECK W/ CONTRAST 12/27/2024 REASON FOR EXAM: DIZZINESS TECHNIQUE: Procedure Code: [id number].HDNCK Modality: CT Procedure: CTA HEAD AND NECK W/ CONTRAST Multiplanar Sagittal and Coronal images were obtained. CONTRAST: Isovue 370 VOLUME: 100 mL One or more dose reduction techniques were used (e.g., Automated exposure control, adjustment of the mA and/or kV according to patient size, use of iterative reconstruction technique). RADIATION DOSE SUMMARY: CTDlvol: 44+ 16 was 19 mGy DLP: 812+ 8+ 776 mGycm FINDINGS: Intracranial circulation: Intracranial internal carotid arteries, anterior cerebral arteries, middle cerebral arteries, posterior cerebral arteries, vertebral arteries, and basilar artery are patent without stenosis, occlusion, aneurysm, dissection, or vascular malformation. Extracranial circulation: Common carotid arteries, carotid bifurcations, cervical internal carotid arteries, vertebral arteries, and subclavian arteries are normal in caliber without stenosis, dissection, aneurysm, or atherosclerotic plaque. Venous structures: Dural venous sinuses and major cortical veins are patent. Soft tissues: Neck soft tissues appear unremarkable. No mass or abnormal lymphadenopathy. Osseous structures: Calvarium and cervical spine demonstrate no acute abnormality. CT/CTA Head AND Neck W/ Contrast IMPRESSION: No acute arterial abnormality of the head or neck. Reading Location: [address]
[2024-12-27 21:00] VITALS: BP 186/77; PULSE 77; RESP 14; O2SAT 97
[2024-12-27 22:04] VITALS: BP 171/93; PULSE 83; RESP 18; TEMP 36.8; O2SAT 98
== END 2024-12-27 22:07 | disposition home or self-care (01) ==
PROVIDERS: Emergency Provider Student in an Organized Health Care Education/Training Program; PCP Clinical Nurse Specialist Adult Health; Visit Provider Student in an Organized Health Care Education/Training Program
DX: R42 Dizziness and giddiness (principal); I10 Essential (primary) hypertension; M54.2 Cervicalgia; G89.29 Other chronic pain; G43.909 Migraine, unspecified, not intractable, without status migrainosus; Z79.899 Other long term (current) drug therapy
CPT/HCPCS: 70450; 70496; 70498; 99283; Q9967; A4216